=== PATIENT | female | born 1955 | race Caucasian/White ===

== ENCOUNTER → 2019-10-06 14:29 | Outpatient (BNVA) | payer MEDICARE, MEDICAID, SELFPAY | PROVIDERS: Visit Provider Nurse Practitioner Family | DX: J06.9 Acute upper respiratory infection, unspecified (principal); J84.9 Interstitial pulmonary disease, unspecified | CPT/HCPCS: 71046; 85025 ==

== ENCOUNTER → 2019-10-10 13:52 | Outpatient (BNVA) | payer MEDICARE, MEDICAID, SELFPAY | PROVIDERS: Visit Provider Nurse Practitioner Family | DX: J84.9 Interstitial pulmonary disease, unspecified (principal); J98.11 Atelectasis; R09.89 Other specified symptoms and signs involving the circulatory and respiratory systems | CPT/HCPCS: 71046 ==

== ENCOUNTER 2019-10-10 17:14 | Emergency (ER) | payer MEDICARE, MEDICAID, SELFPAY ==
--- NOTE | 2019-10-10 17:33 | ED_ITS ---
Entered by Anita Rebolledo, acting as scribe for Documented by User: Ruth Vo Loraine 10/11/19 00:16 HPI - General Adult General: Chief complaint: Shortness of Breath/Dyspnea Stated complaint: high wb count Time Seen by Provider: 10/10/19 17:46 PFSH ED PFSH: Medical History Acquired renal cyst Active asthma Advanced COPD Atelectasis Bilateral primary osteoarthritis of knee CAD (coronary artery disease), [place] coronary artery Collapsed vertebra, not elsewhere classified, thoracic region, sequela of fracture DDD (degenerative disc disease) Essential (primary) hypertension Facet syndrome, lumbar Idiopathic scoliosis and kyphoscoliosis Iron deficiency Lumbar stenosis Lumbosacral spondylosis without myelopathy Meralgia paresthetica, unspecified lower limb Mixed hyperlipidemia CASSIE (obstructive sleep apnea) Pain in thoracic spine Panlobular emphysema Sensorineural hearing loss, bilateral SOB (shortness of breath) Spondylolisthesis Tinnitus, bilateral Tobacco abuse Vitamin D deficiency, unspecified Surgical History History of hysterectomy Hx of section Social History Smoking and tobacco status: former smoker Alcohol intake: never Lives independently: Yes Marital status: / History of recent travel: No Current gender identity: Female Course Vital Signs: Vital signs: Vital Signs Temperature 98.1 F 10/10/19 17:34 Pulse Rate 87 10/10/19 19:28 Respiratory Rate 18 10/10/19 19:28 Blood Pressure 152/72 10/10/19 19:13 Pulse Oximetry 96 10/10/19 19:28 MDM - General Adult MDM Narrative: Medical decision making narrative: Michelle is a very nice 64-year-old female who comes in with pneumonia. She states overall she is feeling a little better since she was diagnosed on Thursday but is only taking doxycycline but is currently on prednisone. The patient's nurse practitioner was concerned as her white blood cell count was going up but I have informed her this is an expected reaction with being on steroids. She again denies any chest pain, she only gets short of breath with exertion but normal or so that she normally does because of her COPD. The patient has a curb 65 score of 1 that makes her low risk and a pneumonia severity index score classifying her as class II. I have offered to put her in the hospital despite this but she declines. She wants to take Levaquin at home which she has had success with before and she agrees to finish her doxycycline, steroids and will continue her home breathing treatments. The patient here does not appear septic. She has no chest pain and her troponins and EKG have been normal. She understands she can be admitted but at this time she wants to continue to try to recuperate at home. She is only he re at this time because she was instructed by her nurse practitioner because her white blood cell count was going up. Again I believe this is likely a reaction to her steroids. Ultimately though the patient was offered admission but she wants to continue to try to do this at home but does agree to return if she worsens. Lab Data: Attestation: I reviewed the patient's lab results. Labs: Lab Results 10/10/19 10/10/19 10/10/19 Range/Units 17:44 17:44 17:44 WBC 17.1 H (4.0-10.0) 10^3/ uL RBC 4.10 (4.1-5.3) 10^6/u L Hgb 11.1 L (11.5-15.3) g/dL Hct 36.3 L (37.0-47.0) % MCV 88.5 (81-99) fL MCH 27.1 L (28.0-34.0) pg MCHC 30.6 (30.0-36.0) g/dL RDW 14.0 (12.1-15.1) % Plt Count 317 (130-400) 10^3/c mm MPV 8.8 (7.4-10.4) fL Neut % (Auto) 82.9 % Lymph % (Auto) 9.1 % [place] % (Auto) 4.3 % Eos % (Auto) 0.4 % Baso % (Auto) 0.5 % Neut # (Auto) 14.2 H (1.8-7.7) 10^3/u L Lymph # (Auto) 1.6 (0.8-4.8) 10^3/u L [place] # (Auto) 0.7 (0.2-0.9) 10^3/u L Eos # (Auto) 0.1 (0.0-0.8) 10^3/u L Baso # (Auto) 0.1 (0.0-0.1) 10^3/u L Nucleated RBC % (a uto) 0 % Nucleated RBCs # 0.0 /100WBC Specimen Type Sample Site ABG pH (7.35-7.45) ABG pCO2 (35-45) mmHg ABG pO2 (80.0-100.0) mmH g ABG HCO3 (22-26) mmol/L ABG O2 Saturation ABG Base Excess (-2.0-2.0) mmol/ L Zachary Test A-a O2 Gradient (5-10) mmHg Hematocrit (37-47) % Hgb O2 Saturation (95-100) % Carboxyhemoglobin (0.4-20.1) %THgb Methemoglobin (0.4-1.5) % Total Hemoglobin (12-16) g/dL Ionized Calcium (1.1-1.4) mmol/L Mounter Hand ID Sodium 138 (136-145) mmol/L Potassium 3.8 (3.5-5.1) mmol/L Chloride 91 L (98-107) mmol/L Carbon Dioxide 36 H (22-29) mmol/L Anion Gap 14.8 (5-19) BUN 15 (8-23) mg/dL Creatinine 0.8 (0.5-0.9) mg/dL GFR Calculation 72.0 L (90-130) mL/min Glucose 143 H (65-115) mg/dL Calcium 10.0 (8.5-10.5) mg/dL Total Bilirubin 0.5 (0.15-1.2) mg/dL AST 11 (0-32) U/L ALT 9 (0-33) U/L Alkaline Phosphata se 89 (35-105) IU/L Troponin T Baselin e 8 (0-10) ng/mL Troponin T 120 Min [place] (0-10) ng/mL Delta Troponin T (0-10) ABS# NT-Pro-B Natriuret Pep (0-125) pg/mL Total Protein 8.2 (6.6-8.7) g/dL Albumin 4.1 (3.5-5.2) g/dL Globulin 4.1 (1.3-4.6) g/dL Lipase 15 (13-60) U/L Influenza Type A A g (Negative) POC Influenza B Ag (Negative) 10/10/19 10/10/19 10/10/19 Range/Units 17:44 18:56 19:24 WBC (4.0-10.0) 10^3/ uL RBC (4.1-5.3) 10^6/u L Hgb (11.5-15.3) g/dL Hct (37.0-47.0) % MCV (81-99) fL MCH (28.0-34.0) pg MCHC (30.0-36.0) g/dL RDW (12.1-15.1) % Plt Count (130-400) 10^3/c mm MPV (7.4-10.4) fL Neut % (Auto) % Lymph % (Auto) % [place] % (Auto) % Eos % (Auto) % Baso % (Auto) % Neut # (Auto) (1.8-7.7) 10^3/u L Lymph # (Auto) (0.8-4.8) 10^3/u L [place] # (Auto) (0.2-0.9) 10^3/u L Eos # (Auto) (0.0-0.8) 10^3/u L Baso # (Auto) (0.0-0.1) 10^3/u L Nucleated RBC % (a uto) % Nucleated RBCs # /100WBC Specimen Type Sample Site ABG pH (7.35-7.45) ABG pCO2 (35-45) mmHg ABG pO2 (80.0-100.0) mmH g ABG HCO3 (22-26) mmol/L ABG O2 Saturation ABG Base Excess (-2.0-2.0) mmol/ L Zachary Test A-a O2 Gradient (5-10) mmHg Hematocrit (37-47) % Hgb O2 Saturation (95-100) % Carboxyhemoglobin (0.4-20.1) %THgb Methemoglobin (0.4-1.5) % Total Hemoglobin (12-16) g/dL Ionized Calcium (1.1-1.4) mmol/L Mounter Hand ID Sodium (136-145) mmol/L Potassium (3.5-5.1) mmol/L Chloride (98-107) mmol/L Carbon Dioxide (22-29) mmol/L Anion Gap (5-19) BUN (8-23) mg/dL Creatinine (0.5-0.9) mg/dL GFR Calculation (90-130) mL/min Glucose (65-115) mg/dL Calcium (8.5-10.5) mg/dL Total Bilirubin (0.15-1.2) mg/dL AST (0-32) U/L ALT (0-33) U/L Alkaline Phosphata se (35-105) IU/L Troponin T Baselin e (0-10) ng/mL Troponin T 120 Min [place] 8.93 (0-10) ng/mL Delta Troponin T 0.93 (0-10) ABS# NT-Pro-B Natriuret Pep 178 H (0-125) pg/mL Total Protein (6.6-8.7) g/dL Albumin (3.5-5.2) g/dL Globulin (1.3-4.6) g/dL Lipase (13-60) U/L Influenza Type A A g Negative (Negative) POC Influenza B Ag Negative (Negative) 10/10/19 Range/Units 19:25 WBC (4.0-10.0) 10^3/ uL RBC (4.1-5.3) 10^6/u L Hgb (11.5-15.3) g/dL Hct (37.0-47.0) % MCV (81-99) fL MCH (28.0-34.0) pg MCHC (30.0-36.0) g/dL RDW (12.1-15.1) % Plt Count (130-400) 10^3/c mm MPV (7.4-10.4) fL Neut % (Auto) % Lymph % (Auto) % [place] % (Auto) % Eos % (Auto) % Baso % (Auto) % Neut # (Auto) (1.8-7.7) 10^3/u L Lymph # (Auto) (0.8-4.8) 10^3/u L [place] # (Auto) (0.2-0.9) 10^3/u L Eos # (Auto) (0.0-0.8) 10^3/u L Baso # (Auto) (0.0-0.1) 10^3/u L Nucleated RBC % (a uto) % Nucleated RBCs # /100WBC Specimen Type Arterial Sample Site Radial, left ABG pH 7.48 H (7.35-7.45) ABG pCO2 51.8 H (35-45) mmHg ABG pO2 63.2 L (80.0-100.0) mmH g ABG HCO3 38.3 H (22-26) mmol/L ABG O2 Saturation 94.7 ABG Base Excess 12.9 H (-2.0-2.0) mmol/ L Zachary Test Pos A-a O2 Gradient 21.7 H (5-10) mmHg Hematocrit 34.3 L (37-47) % Hgb O2 Saturation 93.2 L (95-100) % Carboxyhemoglobin 1.1 (0.4-20.1) %THgb Methemoglobin 0.5 (0.4-1.5) % Total Hemoglobin 11.2 L (12-16) g/dL Ionized Calcium 1.2 (1.1-1.4) mmol/L Mounter Hand ID ellpe Sodium 139.0 (136-145) mmol/L Potassium 3.6 (3.5-5.1) mmol/L Chloride (98-107) mmol/L Carbon Dioxide (22-29) mmol/L Anion Gap (5-19) BUN (8-23) mg/dL Creatinine (0.5-0.9) mg/dL GFR Calculation (90-130) mL/min Glucose 107.0 (65-115) mg/dL Calcium (8.5-10.5) mg/dL Total Bilirubin (0.15-1.2) mg/dL AST (0-32) U/L ALT (0-33) U/L Alkaline Phosphata se (35-105) IU/L Troponin T Baselin e (0-10) ng/mL Troponin T 120 Min [place] (0-10) ng/mL Delta Troponin T (0-10) ABS# NT-Pro-B Natriuret Pep (0-125) pg/mL Total Protein (6.6-8.7) g/dL Albumin (3.5-5.2) g/dL Globulin (1.3-4.6) g/dL Lipase (13-60) U/L Influenza Type A A g (Negative) POC Influenza B Ag (Negative) Imaging Data^: CXR: My impression: Bilateral lower lobe infiltrates. EKG Data^: EKG 1: Attestation: I personally reviewed and interpreted this EKG as follows: EKG interpretation date: 10/10/19 EKG interpretation time: 18:04 Interpretation: Normal sinus rhythm at 86 beats a minute, left axis deviation, no acute ST-T wave changes, LVH Computer generated interpretation: Chest X-Ray 10/10/19 17:56 IMPRESSION: Low-grade subsegmental atelectasis with infiltrate in the basilar portions of both lower lungs slightly increased since previous exam. Discharge Plan Discharge Patient Disposition: Home, Self-Care Clinical Impression: Community acquired pneumonia Qualifiers: Laterality: unspecified laterality Qualified Code(s): J18.9 - Pneumonia, unspecified organism Condition: Stable Prescriptions: New Levaquin 750 mg tablet 750 mg PO DAILY 7 Days RF: 0 No Action metoprolol succinate [Toprol XL] 100 mg tablet extended release 24 hr 100 mg PO ONCE RF: 0 furosemide [Lasix] 20 mg tablet 10 mg PO BID RF: 0 montelukast [Singulair] 10 mg tablet 10 mg PO ONCE RF: 0 albuterol sulfate [Ventolin HFA] 90 mcg/actuation HFA aerosol inhaler 2 puff INHALATION Q4H PRNRF: 0 cholecalciferol (vitamin D3) 50,000 unit capsule 50,000 unit PO .Weekly RF: 0 aspirin [Adult Aspirin Regimen] 81 mg tablet,delayed release (DR/EC) 81 mg PO ONCE RF: 0 albuterol sulfate 2.5 mg /3 mL (0.083 %) solution for nebulization 2.5 mg INHALATION Q6H PRNRF: 0 ferrous sulfate 325 mg (65 mg iron) tablet 325 mg PO BID RF: 0 Daliresp 500 mcg tablet 500 mcg PO ONCE RF: 0 alendronate [Fosamax] 70 mg tablet 70 mg PO .Weekly RF: 0 duloxetine [Cymbalta] 30 mg capsule,delayed release(DR/EC) 30 mg PO BID RF: 0 atorvastatin [Lipitor] 10 mg tablet 10 mg PO ONCE RF: 0 nitroglycerin 0.4 mg tablet, sublingual 0.4 mg SUBLINGUAL Q5M PRNRF: 0 isosorbide dinitrate 30 mg tablet 30 mg PO ONCE RF: 0 meloxicam [Mobic] 7.5 mg tablet 7.5 mg PO ONCE RF: 0 losartan-hydrochlorothiazide [Hyzaar] 100-25 mg tablet 1 tab PO ONCE RF: 0 tizanidine 2 mg tablet 2 mg PO BID PRNRF: 0 calcium carbonate [Calcium 500] 500 mg calcium (1,250 mg) tablet 500 mg PO ONCE RF: 0 potassium chloride 20 mEq packet 20 meq PO ONCE RF: 0 prednisone 10 mg tablets,dose pack See Rx Instructions PO PER PKG DIR Qty: 21 RF: 0 doxycycline monohydrate 100 mg capsule 100 mg PO BID Qty: 20 RF: 0 Trelegy Ellipta 100-62.5-25 mcg blister with device 1 inh INHALATION Q24H 60 Days Qty: 60 RF: 1 magnesium oxide [MagOx] 400 mg (241.3 mg magnesium) tablet 400 mg PO TID Qty: 90 RF: 1 Discharge Orders: Discharge Order (Routine); Ordered 10/10/19 Ordered By: Ruth Baron Referrals: Tung Shields DO [Physician] - 1-3 days Discharge Diet: Usual diet Discharge Activity: Increase activity as tolerated Patient Instructions: Community-acquired Pneumonia (ED) Activity Restrictions/Additional Instructions: Please return to the ER immediately for any of the signs or symptoms listed on your discharge instruction sheets, worsening/changing of your symptoms, you are not getting better as quickly as expected, or for ANY other cause or concerns. You have been offered admission for treatment of your moment but have declined. If your symptoms worsen at all or you develop any new symptoms please return to the ER immediately for recheck. Discharge Date/Time: 10/10/19 21:02 Coding Level of Care Code ED Spiral Weaver for Chg Fwd Exam Comprehensive Documented by User: Yang Nichols DO 10/11/19 12:46 HPI - General Adult General: Chief complaint: Shortness of Breath/Dyspnea Stated complaint: high wb count Time Seen by Provider: 10/10/19 17:46 History of Present Illness: HPI narrative: 64 yo female presents with shortness of breath. Pt states that she was diagnosed Thursday with Pneumonia. Pt states that she has been taking antibiotics, her wbc is high. Pt states that she is taking steroids as well. pt states that her PCP told her to come to the ER because her wbc were elevated. Pt states that she is on o2 at all times. Pt denies being short of breath right now. Pt states that she has been coughing. Pt states that she feels fine now, but at night her symptoms worsen. MD complaint: shortness of breath Associated symptoms: Deny chest pain, dyspnea, malaise, nausea, rash or vomiting Review of Systems Const: Denies: fever, chills, body aches, change in appetite, fatigue or malaise ENMT: Denies: throat pain, ear pain, nasal discharge or nasal congestion Card: Denies: chest pain, edema, shortness of breath on exertion or shortness of breath when lying down Resp: Denies: shortness of breath, productive cough or non-productive cough GI: Denies: abdominal pain, nausea, vomiting, vomiting blood, coffee grounds in vomit, diarrhea, constipation, bloating, blood in stool or black tarry stool : Denies: flank pain, difficulty urinating, painful urination, urinary frequency or urinary urgency Skin/Breast: Denies: rash or itching PFSH ED PFSH: Medical History Acquired renal cyst Active asthma Advanced COPD Atelectasis Bilateral primary osteoarthritis of knee CAD (coronary artery disease), [place] coronary artery Collapsed vertebra, not elsewhere classified, thoracic region, sequela of fracture DDD (degenerative disc disease) Essential (primary) hypertension Facet syndrome, lumbar Idiopathic scoliosis and kyphoscoliosis Iron deficiency Lumbar stenosis Lumbosacral spondylosis without myelopathy Meralgia paresthetica, unspecified lower limb Mixed hyperlipidemia CASSIE (obstructive sleep apnea) Pain in thoracic spine Panlobular emphysema Sensorineural hearing loss, bilateral SOB (shortness of breath) Spondylolisthesis Tinnitus, bilateral Tobacco abuse Vitamin D deficiency, unspecified Surgical History History of hysterectomy Hx of section Social History Smoking and tobacco status: former smoker Alcohol intake: never Lives independently: Yes Marital status: / History of recent travel: No Current gender identity: Female Physical Exam Const: COMMON NORMALS: no apparent distress GENERAL APPEARANCE: cooperative and comfortable ORIENTATION/CONSCIOUSNESS: Yes awake, Yes oriented to person, Yes oriented to place and Yes oriented to time HENMT: COMMON NORMALS: normocephalic, head/scalp atraumatic, hearing grossly normal bilaterally, external ears normal, EAC's normal, TM's normal bilaterally, nasal mucous membranes and turbinates normal, moist oral mucous membranes and oropharynx normal HEAD & SCALP: normocephalic and atraumatic NOSE: nasal mucous membranes and turbinates normal EXTERNAL EAR: Yes external ears normal EXTERNAL AUDITORY CANAL: EAC's normal TYMPANIC MEMBRANE: TM's normal bilaterally Eye: COMMON NORMALS: PERRL, EOMs intact bilaterally, conjunctivae normal and no scleral icterus CONJUNCTIVA: Yes conjunctivae normal PUPIL: Yes PERRL Neck/C-Spine: COMMON NORMALS: full ROM, no lymphadenopathy, supple and no JVD Lymph: LYMPHATIC: no lymphadenopathy noted and no lymphedema noted Cardio: COMMON NORMALS: no JVD, regular rate, regular rhythm and no murmurs RATE: regular rate RHYTHM: regular rhythm GI: COMMON NORMALS: soft to palpation and no hepatosplenomegaly AUSCULTATION: Yes normoactive bowel sounds PALPATION: Yes soft, No tender, No guarding and Yes no hepatosplenomegaly Extremity: COMMON NORMALS: normal to inspection, normal capillary refill, no clubbing, cyanosis or edema, no calf tenderness and no pedal edema Neuro: SENSORIUM/ORIENTATION: Yes oriented to person, Yes oriented to place and Yes oriented to time Skin: COMMON NORMALS: no rashes or lesions noted GENERAL SKIN EXAM: no rashes or lesions noted Course ED course: I initially ordered labs to help expedite patient's care in the emergency room but I did not see her. She had come to the exam room shortly before change of shift labs were ordered, shortly after that Dr. Heart seen her see his notes. Vital Signs: Vital signs: Vital Signs Temperature 98.1 F 10/10/19 17:34 Pulse Rate 87 10/10/19 19:28 Respiratory Rate 18 10/10/19 19:28 Blood Pressure 152/72 10/10/19 19:13 Pulse Oximetry 96 10/10/19 19:28 MDM - General Adult Lab Data: Labs: Lab Results 10/10/19 10/10/19 10/10/19 Range/Units 17:44 17:44 17:44 WBC 17.1 H (4.0-10.0) 10^3/ uL RBC 4.10 (4.1-5.3) 10^6/u L Hgb 11.1 L (11.5-15.3) g/dL Hct 36.3 L (37.0-47.0) % MCV 88.5 (81-99) fL MCH 27.1 L (28.0-34.0) pg MCHC 30.6 (30.0-36.0) g/dL RDW 14.0 (12.1-15.1) % Plt Count 317 (130-400) 10^3/c mm MPV 8.8 (7.4-10.4) fL Neut % (Auto) 82.9 % Lymph % (Auto) 9.1 % [place] % (Auto) 4.3 % Eos % (Auto) 0.4 % Baso % (Auto) 0.5 % Neut # (Auto) 14.2 H (1.8-7.7) 10^3/u L Lymph # (Auto) 1.6 (0.8-4.8) 10^3/u L [place] # (Auto) 0.7 (0.2-0.9) 10^3/u L Eos # (Auto) 0.1 (0.0-0.8) 10^3/u L Baso # (Auto) 0.1 (0.0-0.1) 10^3/u L Nucleated RBC % (a uto) 0 % Nucleated RBCs # 0.0 /100WBC Specimen Type Sample Site ABG pH (7.35-7.45) ABG pCO2 (35-45) mmHg ABG pO2 (80.0-100.0) mmH g ABG HCO3 (22-26) mmol/L ABG O2 Saturation ABG Base Excess (-2.0-2.0) mmol/ L Zachary Test A-a O2 Gradient (5-10) mmHg Hematocrit (37-47) % Hgb O2 Saturation (95-100) % Carboxyhemoglobin (0.4-20.1) %THgb Methemoglobin (0.4-1.5) % Total Hemoglobin (12-16) g/dL Ionized Calcium (1.1-1.4) mmol/L Mounter Hand ID Sodium 138 (136-145) mmol/L Potassium 3.8 (3.5-5.1) mmol/L Chloride 91 L (98-107) mmol/L Carbon Dioxide 36 H (22-29) mmol/L Anion Gap 14.8 (5-19) BUN 15 (8-23) mg/dL Creatinine 0.8 (0.5-0.9) mg/dL GFR Calculation 72.0 L (90-130) mL/min Glucose 143 H (65-115) mg/dL Calcium 10.0 (8.5-10.5) mg/dL Total Bilirubin 0.5 (0.15-1.2) mg/dL AST 11 (0-32) U/L ALT 9 (0-33) U/L Alkaline Phosphata se 89 (35-105) IU/L Troponin T Baselin e 8 (0-10) ng/mL Troponin T 120 Min [place] (0-10) ng/mL Delta Troponin T (0-10) ABS# NT-Pro-B Natriuret Pep (0-125) pg/mL Total Protein 8.2 (6.6-8.7) g/dL Albumin 4.1 (3.5-5.2) g/dL Globulin 4.1 (1.3-4.6) g/dL Lipase 15 (13-60) U/L Influenza Type A A g (Negative) POC Influenza B Ag (Negative) 10/10/19 10/10/19 10/10/19 Range/Units 17:44 18:56 19:24 WBC (4.0-10.0) 10^3/ uL RBC (4.1-5.3) 10^6/u L Hgb (11.5-15.3) g/dL Hct (37.0-47.0) % MCV (81-99) fL MCH (28.0-34.0) pg MCHC (30.0-36.0) g/dL RDW (12.1-15.1) % Plt Count (130-400) 10^3/c mm MPV (7.4-10.4) fL Neut % (Auto) % Lymph % (Auto) % [place] % (Auto) % Eos % (Auto) % Baso % (Auto) % Neut # (Auto) (1.8-7.7) 10^3/u L Lymph # (Auto) (0.8-4.8) 10^3/u L [place] # (Auto) (0.2-0.9) 10^3/u L Eos # (Auto) (0.0-0.8) 10^3/u L Baso # (Auto) (0.0-0.1) 10^3/u L Nucleated RBC % (a uto) % Nucleated RBCs # /100WBC Specimen Type Sample Site ABG pH (7.35-7.45) ABG pCO2 (35-45) mmHg ABG pO2 (80.0-100.0) mmH g ABG HCO3 (22-26) mmol/L ABG O2 Saturation ABG Base Excess (-2.0-2.0) mmol/ L Zachary Test A-a O2 Gradient (5-10) mmHg Hematocrit (37-47) % Hgb O2 Saturation (95-100) % Carboxyhemoglobin (0.4-20.1) %THgb Methemoglobin (0.4-1.5) % Total Hemoglobin (12-16) g/dL Ionized Calcium (1.1-1.4) mmol/L Mounter Hand ID Sodium (136-145) mmol/L Potassium (3.5-5.1) mmol/L Chloride (98-107) mmol/L Carbon Dioxide (22-29) mmol/L Anion Gap (5-19) BUN (8-23) mg/dL Creatinine (0.5-0.9) mg/dL GFR Calculation (90-130) mL/min Glucose (65-115) mg/dL Calcium (8.5-10.5) mg/dL Total Bilirubin (0.15-1.2) mg/dL AST (0-32) U/L ALT (0-33) U/L Alkaline Phosphata se (35-105) IU/L Troponin T Baselin e (0-10) ng/mL Troponin T 120 Min [place] 8.93 (0-10) ng/mL Delta Troponin T 0.93 (0-10) ABS# NT-Pro-B Natriuret Pep 178 H (0-125) pg/mL Total Protein (6.6-8.7) g/dL Albumin (3.5-5.2) g/dL Globulin (1.3-4.6) g/dL Lipase (13-60) U/L Influenza Type A A g Negative (Negative) POC Influenza B Ag Negative (Negative) 10/10/19 Range/Units 19:25 WBC (4.0-10.0) 10^3/ uL RBC (4.1-5.3) 10^6/u L Hgb (11.5-15.3) g/dL Hct (37.0-47.0) % MCV (81-99) fL MCH (28.0-34.0) pg MCHC (30.0-36.0) g/dL RDW (12.1-15.1) % Plt Count (130-400) 10^3/c mm MPV (7.4-10.4) fL Neut % (Auto) % Lymph % (Auto) % [place] % (Auto) % Eos % (Auto) % Baso % (Auto) % Neut # (Auto) (1.8-7.7) 10^3/u L Lymph # (Auto) (0.8-4.8) 10^3/u L [place] # (Auto) (0.2-0.9) 10^3/u L Eos # (Auto) (0.0-0.8) 10^3/u L Baso # (Auto) (0.0-0.1) 10^3/u L Nucleated RBC % (a uto) % Nucleated RBCs # /100WBC Specimen Type Arterial Sample Site Radial, left ABG pH 7.48 H (7.35-7.45) ABG pCO2 51.8 H (35-45) mmHg ABG pO2 63.2 L (80.0-100.0) mmH g ABG HCO3 38.3 H (22-26) mmol/L ABG O2 Saturation 94.7 ABG Base Excess 12.9 H (-2.0-2.0) mmol/ L Zachary Test Pos A-a O2 Gradient 21.7 H (5-10) mmHg Hematocrit 34.3 L (37-47) % Hgb O2 Saturation 93.2 L (95-100) % Carboxyhemoglobin 1.1 (0.4-20.1) %THgb Methemoglobin 0.5 (0.4-1.5) % Total Hemoglobin 11.2 L (12-16) g/dL Ionized Calcium 1.2 (1.1-1.4) mmol/L Mounter Hand ID ellpe Sodium 139.0 (136-145) mmol/L Potassium 3.6 (3.5-5.1) mmol/L Chloride (98-107) mmol/L Carbon Dioxide (22-29) mmol/L Anion Gap (5-19) BUN (8-23) mg/dL Creatinine (0.5-0.9) mg/dL GFR Calculation (90-130) mL/min Glucose 107.0 (65-115) mg/dL Calcium (8.5-10.5) mg/dL Total Bilirubin (0.15-1.2) mg/dL AST (0-32) U/L ALT (0-33) U/L Alkaline Phosphata se (35-105) IU/L Troponin T Baselin e (0-10) ng/mL Troponin T 120 Min [place] (0-10) ng/mL Delta Troponin T (0-10) ABS# NT-Pro-B Natriuret Pep (0-125) pg/mL Total Protein (6.6-8.7) g/dL Albumin (3.5-5.2) g/dL Globulin (1.3-4.6) g/dL Lipase (13-60) U/L Influenza Type A A g (Negative) POC Influenza B Ag (Negative) EKG Data^: EKG 1: Computer generated interpretation: Chest X-Ray 10/10/19 17:56 IMPRESSION: Low-grade subsegmental atelectasis with infiltrate in the basilar portions of both lower lungs slightly increased since previous exam. Discharge Plan Discharge Patient Disposition: Home, Self-Care Clinical Impression: Community acquired pneumonia Qualifiers: Laterality: unspecified laterality Qualified Code(s): J18.9 - Pneumonia, unspecified organism Condition: Stable Prescriptions: New Levaquin 750 mg tablet 750 mg PO DAILY 7 Days RF: 0 No Action metoprolol succinate [Toprol XL] 100 mg tablet extended release 24 hr 100 mg PO ONCE RF: 0 furosemide [Lasix] 20 mg tablet 10 mg PO BID RF: 0 montelukast [Singulair] 10 mg tablet 10 mg PO ONCE RF: 0 albuterol sulfate [Ventolin HFA] 90 mcg/actuation HFA aerosol inhaler 2 puff INHALATION Q4H PRNRF: 0 cholecalciferol (vitamin D3) 50,000 unit capsule 50,000 unit PO .Weekly RF: 0 aspirin [Adult Aspirin Regimen] 81 mg tablet,delayed release (DR/EC) 81 mg PO ONCE RF: 0 albuterol sulfate 2.5 mg /3 mL (0.083 %) solution for nebulization 2.5 mg INHALATION Q6H PRNRF: 0 ferrous sulfate 325 mg (65 mg iron) tablet 325 mg PO BID RF: 0 Daliresp 500 mcg tablet 500 mcg PO ONCE RF: 0 alendronate [Fosamax] 70 mg tablet 70 mg PO .Weekly RF: 0 duloxetine [Cymbalta] 30 mg capsule,delayed release(DR/EC) 30 mg PO BID RF: 0 atorvastatin [Lipitor] 10 mg tablet 10 mg PO ONCE RF: 0 nitroglycerin 0.4 mg tablet, sublingual 0.4 mg SUBLINGUAL Q5M PRNRF: 0 isosorbide dinitrate 30 mg tablet 30 mg PO ONCE RF: 0 meloxicam [Mobic] 7.5 mg tablet 7.5 mg PO ONCE RF: 0 losartan-hydrochlorothiazide [Hyzaar] 100-25 mg tablet 1 tab PO ONCE RF: 0 tizanidine 2 mg tablet 2 mg PO BID PRNRF: 0 calcium carbonate [Calcium 500] 500 mg calcium (1,250 mg) tablet 500 mg PO ONCE RF: 0 potassium chloride 20 mEq packet 20 meq PO ONCE RF: 0 prednisone 10 mg tablets,dose pack See Rx Instructions PO PER PKG DIR Qty: 21 RF: 0 doxycycline monohydrate 100 mg capsule 100 mg PO BID Qty: 20 RF: 0 Trelegy Ellipta 100-62.5-25 mcg blister with device 1 inh INHALATION Q24H 60 Days Qty: 60 RF: 1 magnesium oxide [MagOx] 400 mg (241.3 mg magnesium) tablet 400 mg PO TID Qty: 90 RF: 1 Discharge Orders: Discharge Order (Routine); Ordered 10/10/19 Ordered By: Ruth Baron Referrals: Tung Shields DO [Physician] - 1-3 days Discharge Diet: Usual diet Discharge Activity: Increase activity as tolerated Patient Instructions: Community-acquired Pneumonia (ED) Activity Restrictions/Additional Instructions: Please return to the ER immediately for any of the signs or symptoms listed on your discharge instruction sheets, worsening/changing of your symptoms, you are not getting better as quickly as expected, or for ANY other cause or concerns. You have been offered admission for treatment of your moment but have declined. If your symptoms worsen at all or you develop any new symptoms please return to the ER immediately for recheck. Discharge Date/Time: 10/10/19 21:02 Coding Level of Care Code ED Spiral Weaver for Chg Fwd Exam Comprehensive The documentation recorded by the Amaury yost Kialy, accurately reflects the service I personally performed and the decisions made by Magdalena starkey Curtis L, DO Oct 10, 2019 17:14
[2019-10-10 17:34] VITALS: PULSE 93; RESP 18; TEMP 36.7; O2SAT 94; BMI 56.2
--- NOTE | 2019-10-10 17:55 | ECG_ITS ---
Measurements Intervals [place] Rate: 86 P: 59 NJ: 140 QRS: 11 QRSD: 87 T: 53 QT: 367 QTc: 439 SINUS RHYTHM POSSIBLE RIGHT VENTRICULAR CONDUCTION DELAY [RSR (QR) IN V1/V2] MODERATE VOLTAGE CRITERIA FOR LVH, CONSIDER NORMAL VARIANT Compared to ECG 09/28/2015 13:10:58 No significant changes Electronically Signed On 10-11-2019 17:09:07 [employer] by Terri Blanton M.D. [email or web address]
--- NOTE | 2019-10-10 17:56 | XR_ITS ---
WS: [id number] XR chest 1V portable [id number] REASON FOR EXAM: dyspnea/cough FINDINGS: Comparison to previous exam of October 10, 2019 there is mild congestion now seen in the l ower lungs with alveolar infiltrates and subsegmental atelectasis. Increased since the earlier exam. The heart is not enlarged. XR/XR chest 1V portable [id number] IMPRESSION: Low-grade subsegmental atelectasis with infiltrate in the basilar portions of b oth lower lungs slightly increased since previous exam.
[2019-10-10 18:10] LABS: Basophils # 0.1 10^3/uL (0.0-0.1); Basophils % 0.5 %; Eosinophils # 0.1 10^3/uL (0.0-0.8); Eosinophils % 0.4 %; Hematocrit 36.3 % (37.0-47.0); Hemoglobin 11.1 g/dL (11.5-15.3); Lymphocytes # 1.6 10^3/uL (0.8-4.8); Lymphocytes % 9.1 %; Mean Corpuscular HGB Conc 30.6 g/dL (30.0-36.0); Mean Corpuscular Hemoglobin 27.1 pg (28.0-34.0); Mean Corpuscular Volume 88.5 fL (81-99); Mean Platelet Volume 8.8 fL (7.4-10.4); Monocytes # 0.7 10^3/uL (0.2-0.9); Monocytes % 4.3 %; Neutrophils # 14.2 10^3/uL (1.8-7.7); Neutrophils % 82.9 %; Nucleated Red Blood Cells % 0 %; Platelet Count 317 10^3/cmm (130-400); White Blood Count 17.1 10^3/uL (4.0-10.0)
--- NOTE | 2019-10-10 18:15 | ECG_ITS ---
Measurements Intervals [place] Rate: 86 P: 59 NV: 140 QRS: 11 QRSD: 87 T: 53 QT: 367 QTc: 439 SINUS RHYTHM POSSIBLE RIGHT VENTRICULAR CONDUCTION DELAY [RSR (QR) IN V1/V2] MODERATE VOLTAGE CRITERIA FOR LVH, CONSIDER NORMAL VARIANT Compared to ECG 09/28/2015 13:10:58 No significant changes Electronically Signed On 10-11-2019 17:09:22 [facility] [place] SUPPORT by Terri Blanton M.D. [id number]
[2019-10-10 18:18] LABS: Alanine Aminotransferase 9 U/L (0-33); Albumin Level 4.1 g/dL (3.5-5.2); Alkaline Phosphatase 89 IU/L (35-105); Anion Gap 14.8 (5-19); Aspartate Amino Transferase 11 U/L (0-32); Blood Urea Nitrogen 15 mg/dL (8-23); Carbon Dioxide 36 mmol/L (22-29); Chloride 91 mmol/L (98-107); Globulin 4.1 g/dL (1.3-4.6); Glucose 143 mg/dL (65-115); Lipase 15 U/L (13-60); Potassium 3.8 mmol/L (3.5-5.1); Sodium 138 mmol/L (136-145); Total Bilirubin 0.5 mg/dL (0.15-1.2); Total Protein 8.2 g/dL (6.6-8.7)
[2019-10-10 18:37] LABS: Troponin(5th) Baseline 8 ng/mL (0-10)
[2019-10-10 18:45] LABS: NT Pro B Type Natriuretic Pept 178 pg/mL (0-125)
[2019-10-10] MEDS: cefTRIAXone 2,000 MG in sodium chloride 0.9% (plus) 50 ML 100 MG IV (19:02)
--- NOTE | 2019-10-10 19:09 | PC.NURSE ---
Patient resting with family at bedside. Denies any needs at this time. No distress is noted.
[2019-10-10 19:13] VITALS: BP 152/72; PULSE 74; RESP 20; O2SAT 96
[2019-10-10] MEDS: ipratropium-albuterol 3 mL Neb INHALATION (19:24)
[2019-10-10 19:25] VITALS: PULSE 79; RESP 18; O2SAT 97
[2019-10-10 19:28] VITALS: PULSE 87; RESP 18; O2SAT 96
[2019-10-10 19:32] LABS: ABG PCO2 51.8 mmHg (35-45); ABG PH Result 7.48 (7.35-7.45); Alveolar-Arterial Oxygen Gradi 21.7 mmHg (5-10); Arterial Blood Gas Hematocrit 34.3 % (37-47); Base Excess ABG 12.9 mmol/L (-2.0-2.0); Blood Gas Allen Test Pos; Blood Gas Sample Site Radial, left; Blood Gas Sample Type Arterial; Carboxyhemoglobin 1.1 %THgb (0.4-20.1); HCO3 ABG 38.3 mmol/L (22-26); HGB O2 Sat 93.2 % (95-100); Ionized Calcium Level - ABG 1.2 mmol/L (1.1-1.4); Methemoglobin 0.5 % (0.4-1.5); Oxygen Saturation ABG 94.7; PO2 ABG 63.2 mmHg (80.0-100.0); Potassium Level - ABG 3.6 mmol/L (3.5-5.0); Total Hemoglobin 11.2 g/dL (12-16)
[2019-10-10 19:36] LABS: Influenza A by IFA Negative (Negative); Influenza B by IFA Negative (Negative)
[2019-10-10] MEDS: levoFLOXacin 750 mg Tablet PO (19:40)
[2019-10-10 19:46] LABS: Troponin 5 2HR 8.93 ng/mL (0-10); Troponin 5 2HR Delta 0.93 ABS# (0-10)
== END 2019-10-10 21:02 | disposition home or self-care (01) ==
PROVIDERS: Family Medicine; Emergency Provider Emergency Medicine
DX: J18.9 Pneumonia, unspecified organism (principal); J43.1 Panlobular emphysema; I25.10 Atherosclerotic heart disease of native coronary artery without angina pectoris; I10 Essential (primary) hypertension; E78.2 Mixed hyperlipidemia; Z87.891 Personal history of nicotine dependence; Z79.52 Long term (current) use of systemic steroids; Z79.2 Long term (current) use of antibiotics
CPT/HCPCS: 36415; 36600; 71045; 80051; 80053; 82810; 83690; 83880; 83986; 84484; 85007; 85025; 87804; 93005; 94640; 96365; 99283; 99284; J0696

== ENCOUNTER 2019-10-18 10:53 | Outpatient (CLI) | payer MEDICARE, MEDICAID, SELFPAY ==
--- NOTE | 2019-10-18 11:27 | MM_ITS ---
WS: [id number] BILATERAL DIGITAL DIAGNOSTIC MAMMOGRAM MAMMOGRAPHY WITH CAD CLINICAL INFORMATION: LT BREAST PAIN HISTORY: Bloody discharge left nipple left breast soreness COMPARISON: None. TECHNIQUE: Bilateral CC, MLO, and ML views. FINDINGS: Scattered fibroglandular densities bilaterally. A few scattered ovoid nodular densities bilaterally l ikely intramammary lymph nodes. Vascular calcification. No focal subareolar abnormalities left breast . Ultrasound is pending. ULTRASOUND BREAST LEFT TECHNIQUE: Ultrasound left breast focused area of concern. CLINICAL INFORMATION: LT BREAST PAIN COMPARISON: None. FINDINGS: Ultrasound subareolar left breast. Dilated ducts in the area of concern. Evidence of some intraductal debris. No definite focal intraductal solid lesions. No lesions to target for biopsy. This is probab ly benign and recommend 6 month follow-up ultrasound and left diagnostic mammography. MM/[place] [id number] IMPRESSION: BI-RADS: 3-Probably Benign FOLLOW UP: 6 Month Follow-up
== END 2019-10-18 10:54 | disposition home or self-care (01) ==
LOC: RADSHAW 10:54
PROVIDERS: PCP Nurse Practitioner Family; Visit Provider Nurse Practitioner Family
DX: N64.4 Mastodynia (principal)
CPT/HCPCS: 77066

== ENCOUNTER 2019-11-03 10:04 | Outpatient (CLI) | payer MEDICARE, MEDICAID, SELFPAY ==
--- NOTE | 2019-11-03 | US_ITS ---
NOTE: Report was unsigned for reason: Order was edited. Original Signature date and time was: 11/04/19 1013 WS: [id number] BILATERAL DIGITAL DIAGNOSTIC MAMMOGRAM MAMMOGRAPHY WITH CAD CLINICAL INFORMATION: LT BREAST PAIN HISTORY: Bloody discharge left nipple left breast soreness COMPARISON: None. TECHNIQUE: Bilateral CC, MLO, and ML views. FINDINGS: Scattered fibroglandular densities bilaterally. A few scattered ovoid nodular densities bilaterally likely intramammary lymph nodes. Vascular calcification. No focal subareolar abnormalities left breast. Ultrasound is pending. ULTRASOUND BREAST LEFT TECHNIQUE: Ultrasound left breast focused area of concern. CLINICAL INFORMATION: LT BREAST PAIN COMPARISON: None. FINDINGS: Ultrasound subareolar left breast. Dilated ducts in the area of concern. Evidence of some intraductal debris. No definite focal intraductal solid lesions. No lesions to target for biopsy. This is probably benign and recommend 6 month follow-up ultrasound and left diagnostic mammography. MM/[place] [id number] IMPRESSION: BI-RADS: 3-Probably Benign FOLLOW UP: 6 Month Follow-up [facility]
== END 2019-11-03 10:05 | disposition home or self-care (01) ==
LOC: RAD 10:09
PROVIDERS: PCP Nurse Practitioner Family; Visit Provider Nurse Practitioner Family
DX: N64.4 Mastodynia (principal)
CPT/HCPCS: 76642

== ENCOUNTER → 2019-11-09 11:58 | Outpatient (BNVA) | payer MEDICARE, MEDICAID, SELFPAY | PROVIDERS: PCP Nurse Practitioner Family; Visit Provider Nurse Practitioner Family | DX: I10 Essential (primary) hypertension (principal); E55.9 Vitamin D deficiency, unspecified; R06.02 Shortness of breath; J44.9 Chronic obstructive pulmonary disease, unspecified; E78.2 Mixed hyperlipidemia | CPT/HCPCS: 80053; 80061; 82306; 84443; 85025 ==

== ENCOUNTER → 2019-11-10 12:19 | Outpatient (BNVA) | payer MEDICARE, MEDICAID, SELFPAY | PROVIDERS: PCP Nurse Practitioner Family; Visit Provider Nurse Practitioner Family | DX: I10 Essential (primary) hypertension (principal); E55.9 Vitamin D deficiency, unspecified; R06.02 Shortness of breath; J44.9 Chronic obstructive pulmonary disease, unspecified; E78.2 Mixed hyperlipidemia; R73.9 Hyperglycemia, unspecified | CPT/HCPCS: 83036 ==

== ENCOUNTER → 2019-12-26 17:18 | Outpatient (BNVA) | payer MEDICARE, MEDICAID, SELFPAY | PROVIDERS: PCP Nurse Practitioner Family; Visit Provider Nurse Practitioner Family | DX: R10.9 Unspecified abdominal pain (principal); R10.11 Right upper quadrant pain; G47.00 Insomnia, unspecified | CPT/HCPCS: 80053; 85025 ==

== ENCOUNTER → 2020-01-05 10:24 | Outpatient (BNVA) | payer MEDICARE, MEDICAID, SELFPAY | PROVIDERS: PCP Nurse Practitioner Family; Visit Provider Nurse Practitioner Family | DX: J44.1 Chronic obstructive pulmonary disease with (acute) exacerbation (principal); R06.02 Shortness of breath; I70.0 Atherosclerosis of aorta | CPT/HCPCS: 71046; 80053; 85025 ==

== ENCOUNTER 2020-02-01 09:54 | Outpatient (CLI) | payer MEDICARE, MEDICAID, SELFPAY ==
--- NOTE | 2020-02-01 12:13 | PFTS_ITS ---
Date of Study:02/01/20 Date of Dictation: MECHANICS: Forced vital capacity (FVC) is reduced. Forced expiratory volume in one second (FEV1) is reduced. FEV1/FVC is reduced. FLOW VOLUME LOOP: Reduced flow at all lung volumes with significant scooping. LUNG VOLUMES: Reduced inspiratory capacity and expiratory reserve volume. S . DIFFUSING CAPACITY FOR CARBON MONOXIDE: Mildly reduced. INTERPRETATION: The pulmonary function tests are consistent with severe obstruction. A complaint of restriction cannot be ruled out in the absence of lung volumes. There is reduction of inspiratory capacity and expiratory reserve volume. Gas exchange (DLCO) is mildly reduced. MTDD
== END 2020-02-01 09:55 | disposition home or self-care (01) ==
LOC: RT 10:00
PROVIDERS: PCP Nurse Practitioner Family; Visit Provider Internal Medicine Critical Care Medicine
DX: J44.9 Chronic obstructive pulmonary disease, unspecified (principal)
CPT/HCPCS: 94010; 94729

== ENCOUNTER 2020-04-24 08:41 | Outpatient (CLI) | payer MEDICARE, MEDICAID, SELFPAY ==
--- NOTE | 2020-04-24 08:54 | CT_ITS ---
WS: [id number] LDCT LUNG CANCER SCREENING HISTORY: HX OF TOBACCO USE TECHNIQUE: Axial imaging performed from the apices to 1 cm below the costophrenic angles. Coronal and sagittal reformats are submitted with axial MIP series. All CT scans at [facility] use at least one of these dose optimization techniques: automated exposure control; mA and/or kV adjustment per patient size (includes targeted exams where dose is matched to clinical indication); or iterativ e reconstruction. DLP: 72.29 mGy.cm DIvol: 2.2 mGy COMPARISON: 01/18/2016 Diagnostic quality: Limited by body habitus. Lung Nodules: No discrete pulmonary nodules. No endobronchial lesions or groundglass attenuation. Lungs: Partial atelectasis medial LEFT upper lobe adjacent to the mediastinum. This atelectasis was a lso present on 01/18/2016 without significant change. There are additional areas of subsegmental linea r atelectasis at the lingula and LEFT lower lobe. Chronic emphysema. Heart: Mildly enlarged. Other findings: Hilar regions cannot be evaluated without IV contrast. Hilar regions appear mildly pr ominent but without IV contrast evaluation is limited. Similar findings were seen on the prior study and may be related to pulmonary hypertension. Enlarged LEFT adrenal gland. Similar to the prior study . T12 chronic compression fracture of 20%. CT/CT lung screening [id number] IMPRESSION: LUNG-RADS: 1-Negative FOLLOW UP: 12 Month: Continue annual screening with LDCT 1. Chronic T12 compression fracture by 20%. 2.Quality of examination is limited by body habitus. This study would not exclu de mediastinal adenopathy.
== END 2020-04-24 08:42 | disposition home or self-care (01) ==
LOC: CT 08:41
PROVIDERS: Visit Provider Internal Medicine Critical Care Medicine
DX: Z12.2 Encounter for screening for malignant neoplasm of respiratory organs (principal); Z87.891 Personal history of nicotine dependence; S22.080A Wedge compression fracture of T11-T12 vertebra, initial encounter for closed fracture; X58.XXXA Exposure to other specified factors, initial encounter
CPT/HCPCS: G0297

== ENCOUNTER → 2020-05-07 10:43 | Outpatient (BNVA) | payer MEDICARE, MEDICAID, SELFPAY | PROVIDERS: Visit Provider Nurse Practitioner Family | DX: I10 Essential (primary) hypertension (principal); E55.9 Vitamin D deficiency, unspecified | CPT/HCPCS: 80053; 80061; 82306; 83735; 84443; 85025 ==

== ENCOUNTER → 2020-09-18 18:18 | Outpatient (BNVA) | payer MEDICARE, MEDICAID, SELFPAY | PROVIDERS: Visit Provider Nurse Practitioner Family | DX: I10 Essential (primary) hypertension (principal); E78.2 Mixed hyperlipidemia; E55.9 Vitamin D deficiency, unspecified; R73.9 Hyperglycemia, unspecified | CPT/HCPCS: 80053; 80061; 82306; 83036; 84443; 85025 ==

== ENCOUNTER 2020-11-23 20:04 | Inpatient (IN) | payer MEDICARE, MEDICAID, SELFPAY ==
[2020-11-23] VITALS (9 sets, daily range): BP systolic 128–185; BP diastolic 62–96; PULSE 76–99; RESP 17–28; TEMP 36.7; O2SAT 94–99
--- NOTE | 2020-11-23 20:08 | XRR_ITS ---
PROCEDURE INFORMATION: Exam: XR Chest Exam date and time: 11/23/2020 8:14 PM Age: 65 years old Clinical indication: Other: Weakness; Additional info: Abd pain TECHNIQUE: Imaging protocol: XR of the chest Views: 1 view. Total images: 1 COMPARISON: CR XR chest 2V* [id number] 01/05/2020 10:33 AM FINDINGS: Lungs: No visible active interstitial or alveolar airspace disease. Chronic minimal discoid atelectasis lung bases. Pleural spaces: Unremarkable. No pleural effusion. No pneumothorax. Heart/Mediastinum: Cardiac structures and configuration with mild cardiomegaly. Bones/joints: Unremarkable for age. Other findings: Obesity. XR/XR chest 1V portable [id number] IMPRESSION: Nonacute.
--- NOTE | 2020-11-23 20:08 | CTR_ITS ---
PROCEDURE INFORMATION: Exam: CT Abdomen And Pelvis With Contrast Exam date and time: 11/23/2020 9:14 PM Age: 65 years old Clinical indication: Abdominal pain; Generalized; Prior surgery; Surgery type: , hyst; Additional info: Epigastric pain TECHNIQUE: Imaging protocol: Computed tomography of the abdomen and pelvis with contrast. Total images: 268 Radiation optimization: All CT scans at this facility use at least one of these dose optimization techniques: automated exposure control; mA and/or kV adjustment per patient size (includes targeted exams where dose is matched to clinical indication); or iterative reconstruction. Contrast material: OMNI 300; Contrast volume: 95 ml; Contrast route: INTRAVENOUS (IV); COMPARISON: CT Abdomen/Pelvis o [id number] 11/27/2015 2:04 PM RADIATION DOSE METRICS: Total DLP (mGy-cm): 1627.46 FINDINGS: Lungs: Limited assessment of the lung bases fails to reveal evidence for active cardiopulmonary process. Mild dependent atelectasis. Liver: Marked hepatomegaly. Diffuse fatty infiltration of the liver. No visible hepatic mass or cystic structure. Gallbladder and bile ducts: Cholelithiasis. No visible intra or extrahepatic biliary ectasia. No visible choledocholithiasis. Pancreas: Findings of grade 2/5 acute pancreatitis. No visible pseudocyst formation. Mild peripancreatic inflammatory phlegmonous response. No visible pancreatic ductal ectasia. Spleen: Normal. No splenomegaly. Adrenal glands: Left adrenal adenoma measuring 27 mm x 20 mm. No follow-up recommended. Right adrenal gland unremarkable. Kidneys and ureters: No hydronephrosis or perinephric fluid. No visible nephrolithiasis. Simple renal cortical cysts the dominant inferior pole right kidney measuring 30 mm. No follow-up recommended. Stomach and bowel: Reactive duodenitis. Mild diverticulosis coli without visible evidence for acute diverticulitis. Nonobstructive bowel pattern. Appendix: The appendix is visualized and appears noninflamed. Intraperitoneal space: No visible pneumoperitoneum or intraperitoneal ascites. Vasculature: The abdominal aorta is nonaneurysmal. Mild arteriosclerosis. Lymph nodes: Unremarkable. No enlarged lymph nodes. Urinary bladder: Unremarkable as visualized. Reproductive: Status post hysterectomy. Bones/joints: No visible active or acute osseous pathology. Old compression wedge deformity T12. Degenerative disc disease L5/S1 with vacuum disc phenomenon. Soft tissues: Marked morbid obesity. Other findings: Increased quantum mottle artifact which degrades image quality in detail assessment. CT/CT abdomen pelvis w con* [id number] IMPRESSION: 1. Acute grade 2/5 pancreatitis. 2. Reactive duodenitis. 3. Marked hepatomegaly. 4. Diffuse fatty infiltration liver. 5. Cholelithiasis. 6. Left adrenal adenoma. No follow-up recommended. 7. Other nonurgent, nonemergent, chronic, and age related findings as detailed in text above. COMMENTS: Consistent with the [employer] [employer]'s Incidental Findings Committee white paper (J Am Eliel Radiol 2018): Any incidental renal lesion less than 1 cm or classified as too small to characterize, or any incidental cystic renal lesion characterized as simple-appearing, is likely benign. No follow-up imaging is recommended for these lesions per consensus recommendations based on imaging criteria. Radiation Dose CTDIVOL = (mGy): DLP = 1627.46 (mGy-cm)
--- NOTE | 2020-11-23 20:10 | W.ED.ABDPA2 ---
HPI - Abdominal Pain General: Chief Complaint: Abdominal Pain Stated Complaint: abd pain Time Seen by Provider: 11/23/20 20:06 Source: patient Mode of arrival: ambulatory Limitations: no limitations History of Present Illness: HPI narrative: Patient comes in with mid abdominal tenderness starting this afternoon. Patient also reports some 2 episodes of vomiting and one episode of diarrhea. Patient appears chronically ill. Patient has a history of COPD which he takes oxygen for routinely. Patient also has a history of chronic back pain. MD elicited complaint: abdominal pain Onset (ago): day(s) Pain Consistency: intermittent Location: Epigastric Severity: moderate Quality: sharp Migration to: no migration Exacerbating factors: movement Relieving factors: nothing Review of Systems General: Reports: 10 or more systems reviewed and unremarkable except in HPI and below GI: Reports: abdominal pain PFSH ED PFSH: Medical History Acquired renal cyst Active asthma Advanced COPD Atelectasis Bilateral primary osteoarthritis of knee CAD (coronary artery disease), [place] coronary artery Collapsed vertebra, not elsewhere classified, thoracic region, sequela of fracture DDD (degenerative disc disease) Essential (primary) hypertension Facet syndrome, lumbar Idiopathic scoliosis and kyphoscoliosis Iron deficiency Lumbar stenosis Lumbosacral spondylosis without myelopathy Meralgia paresthetica, unspecified lower limb Mixed hyperlipidemia CASSIE (obstructive sleep apnea) Pain in thoracic spine Panlobular emphysema Sensorineural hearing loss, bilateral SOB (shortness of breath) Spondylolisthesis Tinnitus, bilateral Tobacco abuse Vitamin D deficiency, unspecified Surgical History History of hysterectomy Hx of section Family History Other CAD (coronary artery disease) Cancer Diabetes Hypertension Social History Smoking and tobacco status: former smoker Quit status (tobacco): has quit using tobacco Year quit tobacco: 2008 Former quit date comment: 1-2 PPD x 20 yrs Second hand smoke exposure: No Alcohol intake: never Lives independently: Yes Household members: family Marital status: / Current occupational status: disabled History of recent travel: No Current gender identity: Female Special sita needs: No Agree to transfusion: Yes Physical Exam Const: COMMON NORMALS: no acute distress and patient oriented x3 GENERAL APPEARANCE: cooperative HENMT: COMMON NORMALS: normocephalic and Normal external nose present HEAD & SCALP: normal to inspection and normocephalic NOSE: Normal external nose present MOUTH: Normal oral and palatal mucosa present THROAT: posterior oropharynx normal Eye: GENERAL EYE: appearance normal, both eyes and all related structures Neck/C-Spine: COMMON NORMALS: full ROM Chest: COMMONS NORMALS: normal inspection of the chest Resp: COMMON NORMALS: normal respiratory effort EFFORT & INSPECTION: Yes able to speak in complete sentences AUSCULTATION: wheezes Cardio: COMMON NORMALS: regular rate and regular rhythm RATE: regular rate RHYTHM: regular rhythm GI: COMMON NORMALS: Soft to palpation PALPATION: Yes Soft to palpation and Yes Tenderness to palpation present (GI) : COMMON NORMALS: Yes no CVA tenderness BLADDER/KIDNEY EXAM: Yes no CVA tenderness Back/Pelvis: COMMON NORMALS: no CVA tenderness and thoracic and lumbar spine normal to inspection Extremity: COMMON NORMALS: normal to inspection Neuro: COMMON NORMALS: patient oriented x3 and moves all extremities Psych: COMMON NORMALS: mental status grossly normal and cooperative Skin: COMMON NORMALS: no rashes or lesions noted GENERAL SKIN EXAM: no rashes or lesions noted Course ED course: 2114, discussed with patient's elevated lipase at 5600+, told the patient that most likely she has a pancreatitis need to evaluate further with CT scan to rule out surgical intervention. Patient reports understanding and agreed to plan. Patient has been given 2 mg of morphine with minimal pain relief. We will repeat the morphine. I also discussed this with Dr. Snider who agreed to plan. 2154, CT scan notes grade 2/5 acute pancreatitis, and some duodenitis. Patient also has some cholelithiasis but does not indicate any ductal obstruction. Also on the pancreas there does not seem to be any sign of ductal concern. I reviewed this with Dr. Snider he requested that I talk to Dr. Telles regarding the patient for admission to hospitalist services. Patient was informed and agrees to plan. 2245, discussed patient with , Who agreed to admission. Vital Signs: Vital signs: Vital Signs Temperature 98.1 F 11/23/20 20:11 Pulse Rate 76 11/23/20 22:10 Respiratory Rate 22 H 11/23/20 21:06 Blood Pressure 155/63 11/23/20 22:10 Pulse Oximetry 94 11/23/20 22:10 MDM - Abdominal Pain MDM Narrative: Medical decision making narrative: Patient comes in today with complaints of mid abdominal pain for the last 3 days with episodes of nausea vomiting and diarrhea. Patient reports movement aggravates the pain. Patient does have a history of COPD but denies any concern with that at this time. On exam respirations are even with wheezing throughout lung puri. Patient has some complaints of low back pain but no midline tenderness is noted. Palpation of the abdomen notes mid epigastric tenderness. Vital signs are normal except for some mild elevation in blood pressure. Differential diagnosis includes gastritis, pancreatitis, cholecystitis, bowel obstruction. Laboratory values notes normal bilirubin, some mild elevation in liver enzymes, elevation in white blood cells at 16.9, and lipase at 5600+. CT scan was ordered and it was noted patient had a acute pancreatitis and mild duodenitis. The remainder of the CT scan exam did note some cholelithiasis without signs of cholecystitis. Patient needs admitted to the hospital for IV fluids, monitoring for deterioration of condition, and pain control. Lab Data: Labs: Lab Results 11/23/20 11/23/20 11/23/20 Range/Units 20:28 20:28 20:28 WBC 16.9 H (4.0-10.0) 10^3/ uL RBC 4.33 (4.1-5.3) 10^6/u L Hgb 11.9 (11.5-15.3) g/dL Hct 39.0 (37.0-47.0) % MCV 90.1 (81-99) fL MCH 27.5 L (28.0-34.0) pg MCHC 30.5 (30.0-36.0) g/dL RDW 14.0 (12.1-15.1) % Plt Count 326 (130-400) 10^3/c mm MPV 8.9 (7.4-10.4) fL Neut % (Auto) 83.2 % Lymph % (Auto) 7.6 % [place] % (Auto) 5.5 % Eos % (Auto) 2.1 % Baso % (Auto) 0.5 % Neut # (Auto) 14.02 H (1.8-7.7) 10^3/u L Lymph # (Auto) 1.3 (0.8-4.8) 10^3/u L [place]ff[place] # (Auto) 0.9 (0.2-0.9) 10^3/u L Eos # (Auto) 0.4 (0.0-0.8) 10^3/u L Baso # (Auto) 0.1 (0.0-0.1) 10^3/u L Nucleated RBC % (a uto) 0 % Nucleated RBCs # 0.0 /100WBC Sodium 137 (136-145) mmol/L Potassium 3.7 (3.5-5.1) mmol/L Chloride 93 L (98-107) mmol/L Carbon Dioxide 34 H (22-29) mmol/L Anion Gap 13.7 (5-19) BUN 12 (8-23) mg/dL Creatinine 0.7 (0.5-0.9) mg/dL GFR Calculation 83.7 L (90-130) mL/min Glucose 158 H (65-115) mg/dL Calculated Osmolal ity 287 (285-295) mOsm/k g Calcium 9.4 (8.5-10.5) mg/dL Total Bilirubin 1.0 (0.15-1.2) mg/dL AST 142 H (0-32) U/L ALT 177 H (0-33) U/L Alkaline Phosphata se 173 H (35-105) IU/L Troponin T Baselin e 8 (0-10) ng/L Total Protein 7.5 (6.6-8.7) g/dL Albumin 4.0 (3.5-5.2) g/dL Globulin 3.5 (1.3-4.6) g/dL Lipase > 5226 H (13-60) U/L Discharge Plan Discharge Admit Provider: Onofre Latif Sign Out Sign Out Data: Sign Out Comment: needs admission for pancreatitis. 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
[2020-11-23] MEDS: morphine 4 mg/mL SDV 1 mL 2 MG IVP ×2 (20:31→21:43)
[2020-11-23] MEDS: sodium chloride 0.9% 500 ML 999 ML IV (20:31)
[2020-11-23] MEDS: ipratropium-albuterol 3 mL Neb INHALATION (20:35)
[2020-11-23 20:36] LABS: Basophils # 0.1 10^3/uL (0.0-0.1); Basophils % 0.5 %; Eosinophils # 0.4 10^3/uL (0.0-0.8); Eosinophils % 2.1 %; Hemoglobin 11.9 g/dL (11.5-15.3); Lymphocytes # 1.3 10^3/uL (0.8-4.8); Lymphocytes % 7.6 %; Mean Corpuscular HGB Conc 30.5 g/dL (30.0-36.0); Mean Corpuscular Hemoglobin 27.5 pg (28.0-34.0); Mean Corpuscular Volume 90.1 fL (81-99); Mean Platelet Volume 8.9 fL (7.4-10.4); Monocytes # 0.9 10^3/uL (0.2-0.9); Monocytes % 5.5 %; Neutrophils # 14.02 10^3/uL (1.8-7.7); Neutrophils % 83.2 %; Nucleated Red Blood Cells % 0 %; Platelet Count 326 10^3/cmm (130-400); Red Blood Count 4.33 10^6/uL (4.1-5.3); White Blood Count 16.9 10^3/uL (4.0-10.0)
[2020-11-23 20:55] LABS: Alanine Aminotransferase 177 U/L (0-33); Alkaline Phosphatase 173 IU/L (35-105); Anion Gap 13.7 (5-19); Aspartate Amino Transferase 142 U/L (0-32); Blood Urea Nitrogen 12 mg/dL (8-23); Calcium 9.4 mg/dL (8.5-10.5); Carbon Dioxide 34 mmol/L (22-29); Chloride 93 mmol/L (98-107); Globulin 3.5 g/dL (1.3-4.6); Glomerular Filtration Rate 83.7 mL/min (90-130); Glucose 158 mg/dL (65-115); Osmolality Calculated 287 mOsm/kg (285-295); Potassium 3.7 mmol/L (3.5-5.1); Sodium 137 mmol/L (136-145); Total Protein 7.5 g/dL (6.6-8.7)
[2020-11-23 20:57] LABS: Troponin(5th) Baseline 8 ng/L (0-10)
[2020-11-23] MEDS: iohexol 300 mg/mL 100 mL Btl IV (21:29)
[2020-11-23] MEDS: sodium chloride 0.9% 1,000 ML 150 ML IV (21:43)
[2020-11-23] MEDS: pantoprazole 40 mg SDV IVP (22:04)
--- NOTE | 2020-11-23 22:55 | PM.HP ---
Providers/Chief Complaint Admitting Physician: Onofre Latif MD Chief Complaint: abd pain History of Present Illness Michelle Walton is a 65 year old female with history of lymphedema, oxygen dependent COPD uses 3 L [id number], presented today with chief complaint of intractable nausea and vomiting. Patient is stating that her symptoms started 48 hours ago with nausea and vomiting, she has had multiple episode of emesis, she does not smoke or drink alcohol no recent use of antibiotics, she is denying fever, bloody diarrhea. She is experiencing epigastric pain which is radiating towards her back. No previous episode of pancreatitis, she denied history of diabetes. Because of worsening of abdominal pain and intractable nausea vomiting she decided to come to the hospital for further evaluation. Diagnostics in the ER revealed leukocytosis, she is afebrile does not meet sepsis criteria, lipase high CT abdomen revealed adrenal adenoma, grade 2/5 pancreatitis and cholelithiasis without CBD dilation, bilirubin is normal abnormal transaminases with high alkaline phosphatase, chest x-ray unremarkable, troponin VIII not complaining of chest pain, she does have history of COPD has active wheezing at the time of my evaluation she received DuoNeb treatment, opioids and was started on normal saline 150 mL/h which aspiration lactated Ringer IMPRESSION: 1. Acute grade 2/5 pancreatitis. 2. Reactive duodenitis. 3. Marked hepatomegaly. 4. Diffuse fatty infiltration liver. 5. Cholelithiasis. 6. Left adrenal adenoma. No follow-up recommended. Review of Systems Const: Reports: chills, body aches and fatigue; Denies: fever(s) Eyes: Denies: change in vision ENMT: Denies: throat pain Card: Denies: chest pain Resp: Denies: dyspnea GI: Reports: abdominal pain, nausea and vomiting : Denies: flank pain Musc: Denies: neck pain Skin/Breast: Denies: rash Neuro: Denies: headache(s) Psych: Denies: anxiety Endo: Denies: polyuria Randy/Lymph: Denies: easy bruising All/Imm: Denies: urticaria Medications/Allergies Home Medications Medication Instructions Recorded Confirmed Last Taken Type potassium chloride 20 mEq oral 20 meq PO ONCE each 08/31/19 10/04/20 Unknown History packet tizanidine 2 mg tablet 2 mg PO BID PRN #60 tab 11/01/19 10/04/20 Unknown Rx aspirin 81 mg tablet,delayed See Rx Instructions .ROUTE 03/23/20 10/04/20 Unknown Rx release .COMPLEX #30 tab nitroglycerin 0.4 mg sublingual 0.4 mg SUBLINGUAL Q5M PRN #50 tab 04/10/20 10/04/20 Unknown Rx tablet alendronate 70 mg tablet See Rx Instructions .ROUTE 05/07/20 10/04/20 Unknown Rx .COMPLEX #4 tab duloxetine 30 mg capsule,delayed See Rx Instructions .ROUTE 05/07/20 10/04/20 Unknown Rx release .COMPLEX #60 cap metoprolol succinate 100 mg 100 mg PO DAILY #90 tab 05/07/20 10/04/20 Unknown Rx tablet,extended release 24 hr montelukast 10 mg tablet See Rx Instructions .ROUTE 08/23/20 10/04/20 Unknown Rx .COMPLEX #30 tab albuterol sulfate 90 mcg/actuation See Rx Instructions .ROUTE 09/17/20 10/04/20 Unknown Rx aerosol inhaler .COMPLEX #18 g fluticasone fur. 100 mcg-umeclid See Rx Instructions .ROUTE 09/17/20 10/04/20 Unknown Rx 62.5 mcg-vilant 25 mcg .COMPLEX #60 blister inhalat.powder doxycycline hyclate 100 mg capsule 100 mg PO BID #20 cap 09/18/20 10/04/20 Unknown Rx nebulizer, tubing, mask, kit #1 ea 09/18/20 10/04/20 Unknown Rx nystatin 100,000 unit/mL oral 5 ml PO QID 7 Days #140 ml 09/18/20 10/04/20 Unknown Rx suspension guaifenesin 600 mg tablet, See Rx Instructions .ROUTE 10/01/20 10/04/20 Unknown Rx extended release 12 hr .COMPLEX #60 tab albuterol sulfate See Rx Instructions .ROUTE 10/05/20 Unknown Rx .COMPLEX #360 ml ergocalciferol (vitamin D2) 1,250 See Rx Instructions .ROUTE 11/06/20 Unknown Rx mcg (50,000 unit) capsule .COMPLEX #4 cap atorvastatin 10 mg tablet See Rx Instructions .ROUTE 11/08/20 Unknown Rx .COMPLEX #30 tab calcium carbonate 500 mg (1,250 See Rx Instructions .ROUTE 11/08/20 Unknown Rx mg)-vitamin D3 200 unit tablet .COMPLEX #30 tab ferrous sulfate 325 mg (65 mg See Rx Instructions .ROUTE 11/08/20 Unknown Rx iron) tablet .COMPLEX #60 tab furosemide 20 mg tablet See Rx Instructions .ROUTE 11/08/20 Unknown Rx .COMPLEX #60 tab isosorbide mononitrate 30 mg See Rx Instructions .ROUTE 11/08/20 Unknown Rx tablet,extended release 24 hr .COMPLEX #30 tab losartan 100 See Rx Instructions .ROUTE 11/08/20 Unknown Rx mg-hydrochlorothiazide 25 mg tablet .COMPLEX #30 tab magnesium oxide 400 mg (241.3 mg See Rx Instructions .ROUTE 11/08/20 Unknown Rx magnesium) tablet .COMPLEX #90 tab meloxicam 7.5 mg tablet See Rx Instructions .ROUTE 11/08/20 Unknown Rx .COMPLEX #30 tab roflumilast 500 mcg tablet See Rx Instructions .ROUTE 11/08/20 Unknown Rx .COMPLEX #30 tab trazodone 50 mg tablet See Rx Instructions .ROUTE 11/08/20 Unknown Rx .COMPLEX #30 tab Allergies Allergy/AdvReac Type Severity Reaction Status Date / Time ciprofloxacin [From Cipro] Allergy Severe ALGY-Difficulty Verified 10/04/20 11:42 Breathing grape Allergy Intermediate ALGY-Hives Verified 10/04/20 11:42 Penicillins Allergy Intermediate ALGY-Hives Verified 10/04/20 11:42 raisins Allergy ALGY-Rash Uncoded 10/04/20 11:12 PFSH Acute PFSH: Medical History (Updated 11/24/20 @ 01:01 by Onofre Latif MD) Acquired renal cyst Active asthma Advanced COPD Atelectasis Bilateral primary osteoarthritis of knee CAD (coronary artery disease), [place] coronary artery Collapsed vertebra, not elsewhere classified, thoracic region, sequela of fracture DDD (degenerative disc disease) Essential (primary) hypertension Facet syndrome, lumbar Idiopathic scoliosis and kyphoscoliosis Iron deficiency Lumbar stenosis Lumbosacral spondylosis without myelopathy Meralgia paresthetica, unspecified lower limb Mixed hyperlipidemia CASSIE (obstructive sleep apnea) Pain in thoracic spine Panlobular emphysema Sensorineural hearing loss, bilateral SOB (shortness of breath) Spondylolisthesis Tinnitus, bilateral Tobacco abuse Vitamin D deficiency, unspecified Surgical History History of hysterectomy Hx of section Family History Other CAD (coronary artery disease) Cancer Diabetes Hypertension Social History Smoking and tobacco status: former smoker Quit status (tobacco): has quit using tobacco Year quit tobacco: 2008 Former quit date comment: 1-2 PPD x 20 yrs Second hand smoke exposure: No Alcohol intake: never Lives independently: Yes Household members: family Marital status: / Current occupational status: disabled History of recent travel: No Current gender identity: Female Special sita needs: No Agree to transfusion: Yes Vitals/I&O/Wt Last Vital Signs Temp 98.1 F 11/23/20 20:11 Pulse 76 11/23/20 22:10 Resp 22 H 11/23/20 21:06 BP 155/63 11/23/20 22:10 Pulse Ox 94 11/23/20 22:10 11/23/20 11/23/20 11/23/20 06:59 14:59 22:59 Intake Total 500 / 500 Balance 500 / 500 Physical Exam Narrative: EXAM NARRATIVE: Morbidly obese female who appears stated age, clinically looks dehydrated Was actively wheezing at the time of my evaluation Hypertensive, was saturating well on 3 L nasal cannula No acute respite distress or chest pain S1, S2 no murmur appreciated Tender abdomen on mild palpation in midepigastric region with mild guarding Lower extremity nonpitting/lymphedema bilaterally Extremely dry skin She uses walker for ambulation EOMI, PERRLA GCS 15 no neurological deficits Awake alert oriented x3 Data : 11/23/20 20:28 11/23/20 20:28 A&P Assessment and plan (1) Acute pancreatitis: Status: Acute (2) Morbid obesity: Status: Acute (3) COPD exacerbation: Status: Acute Additional A&P Information Acute pancreatitis Grade 2/5 pancreatitis, reactive duodenitis, no signs of gastric outlet obstruction Leukocytosis greater than 15,000, calcium normal, BUN normal, no signs of sepsis, her leukocytosis secondary to stress response to inflammation She is a former smoker, does not drink alcohol no recent use of antibiotics no previous episode of pancreatitis, I do believe this episode is secondary to cholelithiasis and stone has passed that is why there is no intra-/extrahepatic dilation however she has high transaminases along alkaline phosphatase We will keep her on full liquid diet Morphine for analgesia Lactated Ringer at 75 mL/h Triglyceride levels are normal she is not diabetic Trend lipase level, she is not septic, CT abdomen is consistent with phlegmon associated inflammation, closely monitor for any signs of sepsis or necrotic pancreas, I would hold off on adding antibiotics for now COPD exacerbation with chronic hypoxic hypercapnic restaurant failure We will get ABG, currently she is wheezing during my evaluation Her bicarb is 34 on BMP Currently saturating well on 3L nasal cannula Chest x-ray is unremarkable no active signs of pneumonia Morbid obesity: Patient might benefit from outpatient obesity clinic Her last hemoglobin A1c 6.3, she would qualify for impaired glucose tolerance, would definitely benefit from Metformin and GLP-1 analog for weight loss, kindly consider outpatient endocrinology follow-up as well Full liquid diet DVT prophylaxis Lovenox Full code Attestations Medical Necessity Statement*: Anticipating stay in the hospital cross more than 2 midnights for management of acute pancreatitis, she has had recurrent nausea and vomiting at home, phlegmon evident on CT abdomen closely monitor for any signs of sepsis or necrosis of pancreas Time Spent in Patient Care: (>than 50% of time spent in counselling and/or direct pt care on unit). 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
--- NOTE | 2020-11-23 23:04 | PC.NURSE ---
patient report received from NELLY Amador and care transferred to NELLY Silverio
[2020-11-23 23:11] LABS: Triglycerides 141 mg/dL (0-150)
[2020-11-24] VITALS (19 sets, daily range): BP systolic 164–199; BP diastolic 78–96; PULSE 75–98; RESP 16–20; TEMP 36.6–36.8; O2SAT 93–98
[2020-11-24] MEDS: morphine 4 mg/mL SDV 1 mL 2 MG IVP ×5 (00:52→21:12)
[2020-11-24] MEDS: lactated ringers 1,000 ML 75 ML IV ×2 (00:53→16:48)
[2020-11-24] MEDS: enoxaparin 40 mg/0.4 mL Syringe SUBCUT (00:56)
[2020-11-24] MEDS: ipratropium-albuterol 3 mL Neb INHALATION ×3 (01:59→15:57)
[2020-11-24 04:45] LABS: ABG PH Result 7.36 (7.35-7.45); Arterial Blood Gas Hematocrit 35.5 % (37-47); Blood Gas Operator Identificat HARKR; Blood Gas Sample Site Brachial, right; Blood Gas Sample Type Arterial; HCO3 ABG 36.6 mmol/L (22-26); Oxygen Device NC
[2020-11-24 04:46] LABS: ABG PCO2 65.5 mmHg (35-45)
[2020-11-24 06:27] LABS: Basophils # 0.1 10^3/uL (0.0-0.1); Basophils % 0.4 %; Eosinophils # 0.3 10^3/uL (0.0-0.8); Eosinophils % 1.7 %; Hematocrit 38.4 % (37.0-47.0); Hemoglobin 11.5 g/dL (11.5-15.3); Lymphocytes % 6.7 %; Mean Corpuscular HGB Conc 29.9 g/dL (30.0-36.0); Mean Corpuscular Hemoglobin 27.2 pg (28.0-34.0); Mean Corpuscular Volume 90.8 fL (81-99); Mean Platelet Volume 9.1 fL (7.4-10.4); Monocytes # 0.8 10^3/uL (0.2-0.9); Monocytes % 5.2 %; Neutrophils # 12.51 10^3/uL (1.8-7.7); Neutrophils % 84.8 %; Nucleated Red Blood Cells % 0 %; Platelet Count 301 10^3/cmm (130-400); Red Blood Count 4.23 10^6/uL (4.1-5.3); Red Cell Distribution Width 14.4 % (12.1-15.1); White Blood Count 14.7 10^3/uL (4.0-10.0)
[2020-11-24 06:48] LABS: Alanine Aminotransferase 129 U/L (0-33); Albumin Level 3.6 g/dL (3.5-5.2); Alkaline Phosphatase 144 IU/L (35-105); Anion Gap 11.5 (5-19); Aspartate Amino Transferase 85 U/L (0-32); Blood Urea Nitrogen 10 mg/dL (8-23); Calcium 8.8 mg/dL (8.5-10.5); Carbon Dioxide 33 mmol/L (22-29); Chloride 97 mmol/L (98-107); Globulin 3.6 g/dL (1.3-4.6); Glomerular Filtration Rate 123.4 mL/min (90-130); Glucose 148 mg/dL (65-115); Osmolality Calculated 288 mOsm/kg (285-295); Potassium 3.5 mmol/L (3.5-5.1); Sodium 138 mmol/L (136-145); Total Bilirubin 0.7 mg/dL (0.15-1.2); Total Protein 7.2 g/dL (6.6-8.7)
[2020-11-24 06:57] LABS: Lipase 1087 U/L (13-60)
[2020-11-24] MEDS: roflumilast 500 mcg Tablet PO (10:30)
[2020-11-24] MEDS: metoprolol succinate ER (24 HR) 100 mg Tablet PO (10:30)
[2020-11-24] MEDS: losartan 50 mg Tablet 25 MG PO (10:30)
[2020-11-24] MEDS: isosorbide mononitrate ER 30 mg Tablet PO (10:30)
--- NOTE | 2020-11-24 17:31 | P.PN_ITS ---
Vitals/I&O/Wt Last Vital Signs Temp 98.0 F 11/24/20 15:57 Pulse 93 11/24/20 16:03 Resp 20 H 11/24/20 15:57 BP 164/92 11/24/20 15:57 Pulse Ox 97 11/24/20 15:57 11/24/20 11/24/20 11/24/20 06:59 14:59 22:59 Intake Total 400 / 900 1180 / 1180 Output Total 700 / 700 Balance -300 / 200 1180 / 1180 Physical Exam Const: COMMON NORMALS: patient oriented x3 HENMT: COMMON NORMALS: normocephalic and atraumatic HEAD & SCALP: normocephalic and atraumatic Chest: CHEST: Yes Symmetrical chest wall rise Resp: COMMON NORMALS: normal respiratory effort and clear to auscultation bilaterally EFFORT & INSPECTION: Yes symmetric chest movement AUSCULTATION: clear to auscultation bilaterally Cardio: COMMON NORMALS: regular rate, regular rhythm, S1 normal heart sound present, S2 normal heart sound present, No gallops present (Cardio), No murmurs present (Cardio), No rub (Cardio) and Peripheral pulses 2+ throughout RATE: regular rate RHYTHM: regular rhythm HEART SOUNDS: S1 normal heart sound present and S2 normal heart sound present PERIPHERAL PULSES: Peripheral pulses 2+ throughout GI: AUSCULTATION: Yes normoactive bowel sounds RECTAL EXAM: deferred OTHER: Obese abdomen with epigastric tenderness with mild guarding no rigidity no rebound tenderness. Extremity: COMMON NORMALS: no clubbing, cyanosis or edema and no pedal edema Neuro: COMMON NORMALS: patient oriented x3 Data : 11/24/20 05:57 11/24/20 05:57 A&P Assessment and plan (1) Acute pancreatitis: Ac Pancreatitis likely 2/2 to passed G.B Stone Elevated transaminase coming down. Currently she is still complaining of severe epigastric pain,but no nausea,vomiting.Has remained afebrile, leukocytosis is trending down.No signs of pancreatic necrosis on C.T abdomen and pelvis, no clinical signs of sepsis. Patient is on clear liquid diet. Pain control IV hydration. Status: Acute (2) Chronic hypercapnic respiratory failure: Likely secondary to COPD, OHS, CASSIE (overlap syndrome). ABG: pH: 7.33, PCO2:65, PO2:72, FiO2: 30% Duo nebs Supplemental oxygen as needed to maintain saturation greater than 90% Status: Acute (3) Vitamin D deficiency: Cholecalciferol 5,000 units/day orally for 6 weeks Status: Acute (4) Essential (primary) hypertension: Status: Acute (5) CAD (coronary artery disease), [place] coronary artery: Status: Acute (6) COPD exacerbation: Status: Acute (7) Morbid obesity: Status: Acute Attestations Medical Necessity Statement*: Patient needs to be in hospital for the management of Ac Pancreatitis. 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
--- NOTE | 2020-11-24 19:54 | PC.NURSE ---
shift assessment pt has had a pain rating of 8/10 - 10/10 and 2mg of morphine was not helping, this nurse informed Dr Henderson who ordered 2mg PO of dilaudid, pt was given 2 mg of po dilaudid pt was able to sleep for several hours and stated her pain was much better after taking the pill. she stated it really helped her relax compared to just the morphine.
[2020-11-25] VITALS (24 sets, daily range): BP systolic 128–186; BP diastolic 74–95; PULSE 81–98; RESP 16–24; TEMP 36.6–37.2; O2SAT 90–99
[2020-11-25] MEDS: enoxaparin 40 mg/0.4 mL Syringe SUBCUT (00:12)
[2020-11-25] MEDS: ipratropium-albuterol 3 mL Neb INHALATION ×5 (00:35→21:06)
[2020-11-25] MEDS: morphine 4 mg/mL SDV 1 mL 2 MG IVP ×4 (03:38→23:36)
[2020-11-25] MEDS: lactated ringers 1,000 ML 75 ML IV ×2 (06:34→20:11)
[2020-11-25] MEDS: losartan 50 mg Tablet 25 MG PO (07:57)
[2020-11-25] MEDS: metoprolol succinate ER (24 HR) 100 mg Tablet PO (07:57)
[2020-11-25] MEDS: roflumilast 500 mcg Tablet PO (07:58)
[2020-11-25] MEDS: isosorbide mononitrate ER 30 mg Tablet PO (07:58)
[2020-11-25] MEDS: cholecalciferol (vitamin D3) 5,000 unit Tablet 5000 UNIT PO (07:58)
[2020-11-25] MEDS: polyethylene glycol 3350 Pkt 17 gm PO ×2 (10:40→18:39)
[2020-11-25] MEDS: docusate sodium 100 mg Capsule PO ×2 (10:40→18:39)
--- NOTE | 2020-11-25 12:21 | P.PN_ITS ---
Subjective Subjective: Interval history: is doing fine, epigastric abdominal pain is improving.She deny any nausea,vomiting. She has remained afebrile, WBC is slowly coming down. Her other vitals and labs have been reviewed. Vitals/I&O/Wt Last Vital Signs Temp 98.6 F 11/25/20 11:59 Pulse 84 11/25/20 12:14 Resp 18 11/25/20 12:14 BP 128/74 11/25/20 11:59 Pulse Ox 95 11/25/20 12:14 11/24/20 11/25/20 11/25/20 22:59 06:59 14:59 Intake Total 1000 / 2180 400 / 400 Output Total 350 / 350 200 / 550 Balance -350 / 830 800 / 1630 400 / 400 Physical Exam Const: COMMON NORMALS: patient oriented x3 HENMT: COMMON NORMALS: normocephalic and atraumatic HEAD & SCALP: normocephalic and atraumatic Chest: CHEST: Yes Symmetrical chest wall rise Resp: COMMON NORMALS: normal respiratory effort EFFORT & INSPECTION: Yes symmetric chest movement OTHER: B/L Expiratory wheezing present. Cardio: COMMON NORMALS: regular rate, regular rhythm, S1 normal heart sound present, S2 normal heart sound present, No gallops present (Cardio), No murmurs present (Cardio), No rub (Cardio) and Peripheral pulses 2+ throughout RATE: regular rate RHYTHM: regular rhythm HEART SOUNDS: S1 normal heart sound present and S2 normal heart sound present PERIPHERAL PULSES: Peripheral pulse s 2+ throughout GI: AUSCULTATION: Yes normoactive bowel sounds RECTAL EXAM: deferred OTHER: Obese abdomen with epigastric tenderness with mild guarding no rigidity no rebound tenderness. Extremity: COMMON NORMALS: no clubbing, cyanosis or edema and no pedal edema Neuro: COMMON NORMALS: patient oriented x3 Data : 11/24/20 05:57 11/24/20 05:57 A&P Assessment and plan (1) Acute pancreatitis: Ac Pancreatitis likely 2/2 to passed G.B Stone Elevated transaminase coming down. Currently she is still complaining of severe epigastric pain,but no nausea,v omiting.Has remained afebrile, leukocytosis is trending down.No signs of pancreatic necrosis on C.T abdomen and pelvis, no clinical signs of sepsis. Patient was initially on full liquid diet the plan is to advance the diet. Pain control Status: Acute (2) Chronic hypercapnic respiratory failure: Likely secondary to COPD, OHS, CASSIE (overlap syndrome). ABG: pH: 7.33, PCO2:65, PO2:72, FiO2: 30% Duo nebs Supplemental oxygen as needed to maintain saturation greater than 90%. Currently at her baseline oxygen requirement Status: Acute (3) Leukocytosis: Low suspicion for infection. Status: Acute (4) Elevated transaminase level: Status: Acute (5) Vitamin D deficiency: Cholecalciferol 5,000 units/day orally for 6 weeks Status: Acute (6) Essential (primary) hypertension: Status: Acute (7) CAD (coronary artery disease), [place] coronary artery: Status: Acute (8) COPD exacerbation: Status: Acute (9) Morbid obesity: Status: Acute Additional A&P Information Acute pancreatitis Grade 2/5 pancreatitis, reactive duodenitis, no signs of gastric outlet obstruction Leukocytosis greater than 15,000, calcium normal, BUN normal, no signs of sepsis, her leukocytosis secondary to stress response to inflammation She is a former smoker, does not drink alcohol no recent use of antibiotics no previous episode of pancreatitis, I do believe this episode is secondary to cholelithiasis and stone has passed that is why there is no intra-/extrahepatic dilation however she has high transaminases along alkaline phosphatase We will keep her on full liquid diet Morphine for analgesia Lactated Ringer at 75 mL/h Triglyceride levels are normal she is not diabetic Trend lipase level, she is not septic, CT abdomen is consistent with phlegmon associated inflammation, closely monitor for any signs of sepsis or necrotic pancreas, I would hold off on adding antibiotics for now COPD exacerbation with chronic hypoxic hypercapnic restaurant failure We will get ABG, currently she is wheezing during my evaluation Her bicarb is 34 on BMP Currently saturating well on 3L nasal cannula Chest x-ray is unremarkable no active signs of pneumonia Morbid obesity: Patient might benefit from outpatient obesity clinic Her last hemoglobin A1c 6.3, she would qualify for impaired glucose tolerance, would definitely benefit from Metformin and GLP-1 analog for weight loss, kindly consider outpatient endocrinology follow-up as well Full liquid diet DVT prophylaxis Lovenox Full code Attestations Medical Necessity Statement*: Patient needs to be in hospital for the ma nagement of acute pancreatitis . 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
--- NOTE | 2020-11-25 20:16 | PC.NURSE ---
shift summary pt rested most of the morning after a PRN 2mg Dilaudid was given, pt stated she had a hard time eating her lunch so diet was not advanced as she was not tolerating her diet well. pt has been able to get out of bed and to [facility] with 1 assist. pt complained about being constipated this am so this nurse obtained an order for miralax and colace to help her have a BM, so far no success. no other changes this shift.
[2020-11-26] VITALS (20 sets, daily range): BP systolic 141–185; BP diastolic 55–85; PULSE 76–105; RESP 18–26; TEMP 36.3–37.4; O2SAT 91–99
[2020-11-26] MEDS: enoxaparin 40 mg/0.4 mL Syringe SUBCUT (00:49)
[2020-11-26] MEDS: HYDROmorphone 1 mg/mL INJ 1 mL IVP (02:59)
[2020-11-26 05:20] LABS: Basophils # 0.1 10^3/uL (0.0-0.1); Basophils % 0.6 %; Eosinophils # 0.2 10^3/uL (0.0-0.8); Hematocrit 35.4 % (37.0-47.0); Hemoglobin 10.8 g/dL (11.5-15.3); Lymphocytes # 1.2 10^3/uL (0.8-4.8); Lymphocytes % 5.2 %; Mean Corpuscular HGB Conc 30.5 g/dL (30.0-36.0); Mean Corpuscular Hemoglobin 28.1 pg (28.0-34.0); Mean Corpuscular Volume 91.9 fL (81-99); Mean Platelet Volume 9.1 fL (7.4-10.4); Monocytes # 1.3 10^3/uL (0.2-0.9); Monocytes % 5.5 %; Neutrophils # 19.81 10^3/uL (1.8-7.7); Neutrophils % 84.4 %; Nucleated Red Blood Cells % 0 %; Platelet Count 278 10^3/cmm (130-400); Red Blood Count 3.85 10^6/uL (4.1-5.3); Red Cell Distribution Width 14.4 % (12.1-15.1); White Blood Count 23.5 10^3/uL (4.0-10.0)
[2020-11-26 05:40] LABS: Alanine Aminotransferase 56 U/L (0-33); Albumin Level 3.1 g/dL (3.5-5.2); Alkaline Phosphatase 120 IU/L (35-105); Anion Gap 10.4 (5-19); Aspartate Amino Transferase 19 U/L (0-32); Blood Urea Nitrogen 11 mg/dL (8-23); Calcium 8.6 mg/dL (8.5-10.5); Carbon Dioxide 33 mmol/L (22-29); Chloride 95 mmol/L (98-107); Globulin 3.7 g/dL (1.3-4.6); Glomerular Filtration Rate 159.7 mL/min (90-130); Glucose 127 mg/dL (65-115); Osmolality Calculated 281 mOsm/kg (285-295); Potassium 3.4 mmol/L (3.5-5.1); Sodium 135 mmol/L (136-145); Total Bilirubin 0.8 mg/dL (0.15-1.2); Total Protein 6.8 g/dL (6.6-8.7)
[2020-11-26] MEDS: ipratropium-albuterol 3 mL Neb INHALATION ×3 (07:39→17:58)
[2020-11-26] MEDS: docusate sodium 100 mg Capsule PO (08:30)
[2020-11-26] MEDS: roflumilast 500 mcg Tablet PO (08:30)
[2020-11-26] MEDS: cholecalciferol (vitamin D3) 5,000 unit Tablet 5000 UNIT PO (08:30)
[2020-11-26] MEDS: isosorbide mononitrate ER 30 mg Tablet PO (08:31)
[2020-11-26] MEDS: losartan 50 mg Tablet 25 MG PO (08:31)
[2020-11-26] MEDS: metoprolol succinate ER (24 HR) 100 mg Tablet PO (08:31)
[2020-11-26] MEDS: polyethylene glycol 3350 Pkt 17 gm PO (08:32)
[2020-11-26] MEDS: morphine 4 mg/mL SDV 1 mL 2 MG IVP ×2 (08:32→13:20)
--- NOTE | 2020-11-26 08:48 | PC.NURSE ---
called patient's daughter as requested and transferred call to patient's room as requested.
--- NOTE | 2020-11-26 09:09 | PC.NURSE ---
Rcvd verbal order from Dr Henderson for Fleets enema x1, mucinex 600mg Q12H, dilaudid 2mg PO Q6H, lactulose 30mg PO TID, and CBC now. [employer]p Platforms put orders in.
--- NOTE | 2020-11-26 09:27 | P.PN_ITS ---
Subjective Subjective: Interval history: is complaining of continued abdominal pain. Her Wbc count has also acutely worsened. CBC was repeated to make sure it not an error.She has no fever,or any other signs of sepsis. Vitals/I&O/Wt Last Vital Signs Temp 98.1 F 11/26/20 07:00 Pulse 98 11/26/20 07:46 Resp 18 11/26/20 08:32 BP 141/65 11/26/20 07:25 Pulse Ox 99 11/26/20 07:39 11/25/20 11/26/20 11/26/20 22:59 06:59 14:59 Intake Total 1240 / 1640 1000 / 2640 Output Total 0 / 0 Balance 1240 / 1640 1000 / 2640 Physical Exam Const: COMMON NORMALS: patient oriented x3 HENMT: COMMON NORMALS: normocephalic and atraumatic HEAD & SCALP: normocephalic and atraumatic Chest: CHEST: Yes Symmetrical chest wall rise Resp: COMMON NORMALS: normal respiratory effort EFFORT & INSPECTION: Yes symmetric chest movement OTHER: B/L Expiratory wheezing present. Cardio: COMMON NORMALS: regular rate, regular rhythm, S1 normal heart sound present, S2 normal heart sound present, No gallops present (Cardio), No murmurs present (Cardio), No rub (Cardio) and Peripheral pulses 2+ throughout RATE: regular rate RHYTHM: regular rhythm HEART SOUNDS: S1 normal heart sound present and S2 normal heart sound present PERIPHERAL PULSES: Peripheral pulses 2+ throughout GI: AUSCULTATION: Yes normoactive bowel sounds RECTAL EXAM: deferred OTHER: Obese abdomen with epigastric tenderness with mild guarding no rigidity no rebound tenderness. Extremity: COMMON NORMALS: no clubbing, cyanosis or edema and no pedal edema Neuro: COMMON NORMALS: patient oriented x3 Data : 11/26/20 09:39 11/26/20 04:48 A&P Assessment and plan (1) Acute pancreatitis: Ac Pancreatitis likely 2/2 to passed G.B Stone Elevated transaminase coming down. Currently she is still complaining of severe epigastric pain,but no nausea,vomiting.Has remained afebrile, leukocytosis is trending down.No signs of pancreatic necrosis on C.T abdomen and pelvis, no clinical signs of sepsis. repeat C.T Abdomen and pelvis without contrast: Patient was initially on full liquid diet the plan is to advance the diet. Pain control Status: Acute (2) Chronic hypercapnic respiratory failure: Likely secondary to COPD, OHS, CASSIE (overlap syndrome). ABG: pH: 7.33, PCO2:65, PO2:72, FiO2: 30% Duo nebs Supplemental oxygen as needed to maintain saturation greater than 90%. Currently at her baseline oxygen requirement Status: Acute (3) Leukocytosis: Low suspicion for infection. Status: Acute (4) Elevated transaminase level: Status: Acute (5) Vitamin D deficiency: Cholecalciferol 5,000 units/day orally for 6 weeks Status: Acute (6) Essential (primary) hypertension: Status: Acute (7) CAD (coronary artery disease), [place] coronary artery: Status: Acute (8) COPD exacerbation: Status: Acute (9) Morbid obesity: Status: Acute Additional A&P Information Acute pancreatitis Grade 2/5 pancreatitis, reactive duodenitis, no signs of gastric outlet obstruction Leukocytosis greater than 15,000, calcium normal, BUN normal, no signs of sepsis, her leukocytosis secondary to stress response to inflammation She is a former smoker, does not drink alcohol no recent use of antibiotics no previous episode of pancreatitis, I do believe this episode is secondary to cholelithiasis and stone has passed that is why there is no intra-/extrahepatic dilation however she has high transaminases along alkaline phosphatase We will keep her on full liquid diet Morphine for analgesia Lactated Ringer at 75 mL/h Triglyceride levels are normal she is not diabetic Trend lipase level, she is not septic, CT abdomen is consistent with phlegmon associated inflammation, closely monitor for any signs of sepsis or necrotic pancreas, I would hold off on adding antibiotics for now COPD exacerbation with chronic hypoxic hypercapnic restaurant failure We will get ABG, currently she is wheezing during my evaluation Her bicarb is 34 on BMP Currently saturating well on 3L nasal cannula Chest x-ray is unremarkable no active signs of pneumonia Morbid obesity: Patient might benefit from outpatient obesity clinic Her last hemoglobin A1c 6.3, she would qualify for impaired glucose tolerance, would definitely benefit from Metformin and GLP-1 analog for weight loss, kindly consider outpatient endocrinology follow-up as well Full liquid diet DVT prophylaxis Lovenox Full code Attestations Medical Necessity Statement*: Patient needs to be in hospital for the management of acute pancreatitis . 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
[2020-11-26 09:56] LABS: Hematocrit 34.8 % (37.0-47.0); Hemoglobin 10.5 g/dL (11.5-15.3); Mean Corpuscular HGB Conc 30.2 g/dL (30.0-36.0); Mean Corpuscular Hemoglobin 27.6 pg (28.0-34.0); Mean Corpuscular Volume 91.3 fL (81-99); Mean Platelet Volume 9.2 fL (7.4-10.4); Platelet Count 282 10^3/cmm (130-400); Red Blood Count 3.81 10^6/uL (4.1-5.3); Red Cell Distribution Width 14.3 % (12.1-15.1); White Blood Count 22.3 10^3/uL (4.0-10.0)
[2020-11-26 10:22] LABS: Absolute Eosinophils 0.2 10^3/cmm (0.0-0.7); Absolute Segmented Neutrophil 21.2 10/cmm (1.6-7.1); Band Neutrophils Absolute 0.2 10^3/cmm (0.0-1.2); Eosinophils 1 %; Lymphocytes 3 %; Segmented Neutrophils 95 %; Total Cells Counted 100 (0-100)
[2020-11-26 10:23] LABS: Absolute Neutrophil 21.4 10^3/cmm (1.4-6.5); Lymphocytes Absolute 0.7 10^3/cmm (1.2-3.4); Platelet Estimate Normal (Normal); Smudge Cells 1+
--- NOTE | 2020-11-26 10:36 | DCPLANNER ---
Pg 2 of IM updated and reviewed with pt. No questions, she believes she is going home today. Copy provided.
[2020-11-26] MEDS: Fleet Enema 133 mL Enema PR (11:18)
--- NOTE | 2020-11-26 12:01 | PC.NURSE ---
patient had 1 small BM after enema was given
[2020-11-26] MEDS: lactulose oral liq 20 gm/30 mL UDC 30 GM PO (14:24)
--- NOTE | 2020-11-26 15:24 | PC.NURSE ---
small loose BM at this time.
--- NOTE | 2020-11-26 16:02 | PC.NURSE ---
patient had 1 large loose BM
--- NOTE | 2020-11-26 16:04 | PC.NURSE ---
Called patient's contact Noemi as requested by patient. answer parole or probation officer said this call an not be completed at this time, please try again.
--- NOTE | 2020-11-26 16:16 | PC.RESP ---
Pulmonary Rehab information sent to patient.
--- NOTE | 2020-11-26 16:38 | PC.NURSE ---
patient had large loose BM
--- NOTE | 2020-11-26 16:43 | PC.NURSE ---
notified Dr Henderson that patient has had [address] Henderson, discontinue Lactulose and advance diet. sheet writer put orders in for GI Soft diet and discontinued Lactulose order.
[2020-11-26] MEDS: guaiFENesin 600 mg Tablet PO (16:57)
--- NOTE | 2020-11-26 17:20 | PC.NURSE ---
Patient said she has anxiety attacks and she needs medication for it. Hazardous Material Technician notified Dr Henderson
--- NOTE | 2020-11-26 17:34 | CTR_ITS ---
PROCEDURE INFORMATION: Exam: CT Abdomen And Pelvis Without Contrast Exam date and time: 11/26/2020 7:34 PM Age: 65 years old Clinical indication: Abdominal pain; Localized; Prior surgery; Surgery type: , hyst; Patient HX: Left side abd pain TECHNIQUE: Imaging protocol: Computed tomography of the abdomen and pelvis without contrast. Radiation optimization: All CT scans at this facility use at least one of these dose optimization techniques: automated exposure control; mA and/or kV adjustment per patient size (includes targeted exams where dose is matched to clinical indication); or iterative reconstruction. COMPARISON: CT abdomen pelvis w con* [id number] 11/23/2020 9:38 PM RADIATION DOSE METRICS: Total DLP (mGy-cm): 1680.55 FINDINGS: Lungs: Bibasilar atelectasis versus minimal infiltrate. Liver: Liver enlarged with hepatic steatosis. Gallbladder and bile ducts: Cholelithiasis. Pancreas: Moderate edema in the upper abdomen somewhat about the pancreas and duodenum may reflect a pancreatitis or duodenitis depending on the clinical scenario. Spleen: Normal. No splenomegaly. Adrenal glands: Left adrenal 2.3 cm low-density nodule suggestive of a benign adenoma. Kidneys and ureters: Right kidney benign cyst, negative for follow-up advised. Stomach and bowel: Unremarkable. No obstruction. No mucosal thickening. Appendix: No evidence of appendicitis. Intraperitoneal space: Unremarkable. No free air. No significant fluid collection. Vasculature: Unremarkable. No abdominal aortic aneurysm. Lymph nodes: Unremarkable. No enlarged lymph nodes. Urinary bladder: Unremarkable as visualized. Reproductive: Unremarkable as visualized. Bones/joints: T12 vertebral body compression fracture may be chronic without retropulsion of bony fragments. Soft tissues: Unremarkable. CT/CT abdomen pelvis wo con [id number] IMPRESSION: 1. Moderate edema in the upper abdomen somewhat about the pancreas and duodenum may reflect a pancreatitis or duodenitis depending on the clinical scenario, somewhat similar to prior exam. 2. Left adrenal 2.3 cm low-density nodule suggestive of a benign adenoma. 3. T12 vertebral body compression fracture may be chronic without retropulsion of bony fragments. 4. Right kidney benign cyst, negative for follow-up advised. 5. Bibasilar atelectasis versus minimal infiltrate. 6. Cholelithiasis. 7. Liver enlarged with hepatic steatosis. COMMENTS: 1. Consistent with the [employer] [place] [employer]'s Incidental Findings Committee white paper (J Am Eliel Radiol 2017): For any incidental adrenal lesion greater than 1 cm but less than 4 cm classified in this report as benign, likely benign, or containing fat (including classification as an adenoma or myelolipoma), no follow-up imaging is recommended per consensus recommendations based on imaging criteria. Further lab evaluation could be pursued if warranted based on clinical findings. 2. Consistent with the [employer] [place] [employer]'s Incidental Findings Committee white paper (J Am Eliel Radiol 2018): Any incidental renal lesion less than 1 cm or classified as too small to characterize, or any incidental cystic renal lesion characterized as simple-appearing, is likely benign. No follow-up imaging is recommended for these lesions per consensus recommendations based on imaging criteria. Radiation Dose CTDIVOL = (mGy): DLP = 1680.55 (mGy-cm)
[2020-11-26] MEDS: iohexol 300 mg/mL 50 mL Btl PO (19:35)
--- NOTE | 2020-11-26 20:34 | PC.NURSE ---
patient not using call light, just yelling nurse. complaining of abdomen pain and medicine not working. nurse notified
[2020-11-27] VITALS (16 sets, daily range): BP systolic 158–187; BP diastolic 60–78; PULSE 0–111; RESP 16–20; TEMP 36.7–37.1; O2SAT 86–96
[2020-11-27] MEDS: ipratropium-albuterol 3 mL Neb INHALATION ×3 (00:32→12:23)
[2020-11-27] MEDS: enoxaparin 40 mg/0.4 mL Syringe SUBCUT (00:46)
[2020-11-27] MEDS: HYDROmorphone 1 mg/mL INJ 1 mL IVP ×3 (01:54→09:34)
[2020-11-27 05:36] LABS: Alanine Aminotransferase 48 U/L (0-33); Albumin Level 3.6 g/dL (3.5-5.2); Alkaline Phosphatase 131 IU/L (35-105); Anion Gap 13.3 (5-19); Aspartate Amino Transferase 17 U/L (0-32); Blood Urea Nitrogen 12 mg/dL (8-23); Carbon Dioxide 33 mmol/L (22-29); Chloride 93 mmol/L (98-107); Glomerular Filtration Rate 159.7 mL/min (90-130); Glucose 126 mg/dL (65-115); Osmolality Calculated 283 mOsm/kg (285-295); Potassium 3.3 mmol/L (3.5-5.1); Sodium 136 mmol/L (136-145); Total Bilirubin 0.7 mg/dL (0.15-1.2); Total Protein 7.6 g/dL (6.6-8.7)
[2020-11-27 06:22] LABS: Basophils # 0.1 10^3/uL (0.0-0.1); Basophils % 0.5 %; Eosinophils # 0.3 10^3/uL (0.0-0.8); Eosinophils % 1.1 %; Hematocrit 36.1 % (37.0-47.0); Hemoglobin 10.8 g/dL (11.5-15.3); Lymphocytes # 1.4 10^3/uL (0.8-4.8); Lymphocytes % 5.8 %; Mean Corpuscular HGB Conc 29.9 g/dL (30.0-36.0); Mean Corpuscular Hemoglobin 27.5 pg (28.0-34.0); Mean Corpuscular Volume 91.9 fL (81-99); Mean Platelet Volume 9.5 fL (7.4-10.4); Monocytes # 1.1 10^3/uL (0.2-0.9); Monocytes % 4.8 %; Neutrophils # 20.29 10^3/uL (1.8-7.7); Neutrophils % 85.5 %; Nucleated Red Blood Cells % 0 %; Platelet Count 318 10^3/cmm (130-400); Red Blood Count 3.93 10^6/uL (4.1-5.3); Red Cell Distribution Width 14.2 % (12.1-15.1); White Blood Count 23.7 10^3/uL (4.0-10.0)
[2020-11-27] MEDS: roflumilast 500 mcg Tablet PO (09:32)
[2020-11-27] MEDS: guaiFENesin 600 mg Tablet PO (09:32)
[2020-11-27] MEDS: docusate sodium 100 mg Capsule PO (09:32)
[2020-11-27] MEDS: losartan 50 mg Tablet 25 MG PO (09:32)
[2020-11-27] MEDS: cholecalciferol (vitamin D3) 5,000 unit Tablet 5000 UNIT PO (09:32)
[2020-11-27] MEDS: isosorbide mononitrate ER 30 mg Tablet PO (09:32)
[2020-11-27] MEDS: metoprolol succinate ER (24 HR) 100 mg Tablet PO (09:32)
[2020-11-27] MEDS: sennosides-docusate Tablet 1 TAB PO (09:32)
--- NOTE | 2020-11-27 10:46 | PC.NURSE ---
Dilaudid given at 0934. Reassess didn't come up in OCT. Patient rates pain 1-2 at this time. Charge nurse notified.
--- NOTE | 2020-11-27 10:58 | P.DS_ITS ---
Discharge Providers Date of Admission: 11/23/20 21:52 Date of Discharge: November 27, 2020 Attending Provider at Admission: Onofre Latif MD Attending Provider at Discharge: Demetrius Henderson MD Diagnoses at Discharge Discharge Diagnosis (1) Acute pancreatitis: Status: Resolved (2) Chronic hypercapnic respiratory failure: Status: Chronic (3) Leukocytosis: Status: Acute (4) Elevated transaminase level: Status: Resolved (5) Vitamin D deficiency: Status: Acute (6) Essential (primary) hypertension: Status: Acute (7) CAD (coronary artery disease), [place] coronary artery: Status: Acute (8) COPD exacerbation: Status: Acute (9) Morbid obesity: Status: Acute Reason for Visit Reason for Visit: abd pain Hospital Course Hospital Course 65 year old female with history of lymphedema, oxygen dependent COPD uses 3 L [id number], presented today with chief complaint of intractable nausea and vomiting. Patient is stating that her symptoms started 48 hours ago with nausea and vomiting, she has had multiple episode of emesis, she does not smoke or drink alcohol no recent use of antibiotics, she is denying fever, bloody diarrhea. She is experiencing epigastric pain which is radiating towards her back.Further diagnostic work up revealed acute pancreatitis, possibly secondary to passed gallbladder stone, as the CT abdomen showed acute grade 2/5 pancreatitis. Reactive duodenitis. Marked hepatomegaly. Diffuse fatty infiltration liver. Cholelithiasis. Left adrenal adenoma. Her transaminases were also elevated, she was kept n.p.o., on IV hydration, as well as pain control. Later when her abdominal pain subsided, her nausea and vomiting, she was encouraged to advance her p.o. intake, at the time of discharge she was tolerating diet, her pain was well controlled, liver function tests were normalizing, she had no signs of sepsis, no signs of pancreatic necrosis, though she had leukocytosis on discharge., she was also managed for COPD exacerbation she was at her baseline oxygen requirement, she was discharged on azithromycin 500 mg p.o. daily for 5 days. She was also managed for severe vitamin D deficiency, started on cholecalciferol 5000 units daily for 4-6 weeks. She will follow surgery as an outpatient as possible cause of acute pancreatitis being possible cholelithiasis. Patient responded well to the above medical management, and is being discharged in stable condition. Physical Exam Const: COMMON NORMALS: patient oriented x3 HENMT: COMMON NORMALS: normocephalic and atraumatic HEAD & SCALP: normocephalic and atraumatic Chest: CHEST: Yes Symmetrical chest wall rise Resp: COMMON NORMALS: normal respiratory effort EFFORT & INSPECTION: Yes symmetric chest movement OTHER: B/L Expiratory wheezing present. Cardio: COMMON NORMALS: regular rate, regular rhythm, S1 normal heart sound present, S2 normal heart sound present, No gallops present (Cardio), No murmurs present (Cardio), No rub (Cardio) and Peripheral pulses 2+ throughout RATE: regular rate RHYTHM: regular rhythm HEART SOUNDS: S1 normal heart sound present and S2 normal heart sound present PERIPHERAL PULSES: Peripheral pulses 2+ throughout GI: COMMON NORMALS: Normal to inspection, nondistended, normoactive bowel sounds present and Soft to palpation AUSCULTATION: Yes normoactive bowel sounds PALPATION: Yes Soft to palpation RECTAL EXAM: deferred OTHER: Obese abdomen Extremity: COMMON NORMALS: no clubbing, cyanosis or edema and no pedal edema Neuro: COMMON NORMALS: patient oriented x3 Discharge Data Data Completed and Pending: Completed Studies During Hospitalization Category Date Time Status CT abdomen pelvis w con* [id number] Urge nt Cat Scan 11/23/20 20:[address] abdomen pelvis wo con [id number] Rout ine Cat Scan 11/26/20 17:34 Completed XR chest 1V oumar ble [id number] Stat Exams 11/23/20 20:08 Completed Labs from last 24 hours 11/27/20 11/27/20 04:33 04:33 WBC 23.7 H RBC 3.93 L Hgb 10.8 L Hct 36.1 L MCV 91.9 MCH 27.5 L MCHC 29.9 L RDW 14.2 Plt Count 318 MPV 9.5 Neut % (Auto) 85.5 Lymph % (Auto) 5.8 [place] % (Auto) 4.8 Eos % (Auto) 1.1 Baso % (Auto) 0.5 Neut # (Auto) 20.29 H Lymph # (Auto) 1.4 [place] # (Auto) 1.1 H Eos # (Auto) 0.3 Baso # (Auto) 0.1 Nucleated RBC % (a uto) 0 Nucleated RBCs # 0.0 Sodium 136 Potassium 3.3 L Chloride 93 L Carbon Dioxide 33 H Anion Gap 13.3 BUN 12 Creatinine 0.4 L GFR Calculation 159.7 H Glucose 126 H Calculated Osmolal ity 283 L Calcium 9.0 Total Bilirubin 0.7 AST 17 ALT 48 H Alkaline Phosphata se 131 H Total Protein 7.6 Albumin 3.6 Globulin 4.0 Vitals: Last Vital Signs Temp 98.7 F 11/27/20 07:33 Pulse 100 11/27/20 07:59 Resp 18 11/27/20 09:34 BP 187/60 11/27/20 09:32 Pulse Ox 96 11/27/20 09:34 Discharge Plan Discharge Patient Disposition: Home Condition: Stable Prescriptions: New azithromycin 500 mg tablet 500 mg PO DAILY 5 Days RF: 0 cholecalciferol (vitamin D3) 125 mcg (5,000 unit) Tablet 5,000 unit PO DAILY 30 Days RF: 0 Continued metoprolol succinate 100 mg tablet extended release 24 hr 100 mg PO DAILY Qty: 90 RF: 1 nystatin 100,000 unit/mL suspension 5 ml PO QID 7 Days Qty: 140 RF: 0 (DME) nebulizer, tubing, mask, kit See Rx Instructions .Route .MEDSUPPLY Qty: 1 RF: 0 tizanidine 2 mg tablet 2 mg PO BID PRN (Reason: muscle spasticity) Qty: 60 RF: 0 nitroglycerin 0.4 mg tablet, sublingual 0.4 mg SUBLINGUAL Q5M PRN (Reason: chest pain) Qty: 50 RF: 2 guaifenesin [Mucinex] 600 mg tablet extended release 12hr See Rx Instructions .ROUTE .COMPLEX Qty: 60 RF: 5 ergocalciferol (vitamin D2) [Vitamin D2] 1,250 mcg (50,000 unit) capsule See Rx Instructions .ROUTE .COMPLEX Qty: 4 RF: 5 ferrous sulfate 325 mg (65 mg iron) tablet See Rx Instructions .ROUTE .COMPLEX Qty: 60 RF: 5 calcium carbonate-vitamin D3 [Oyster Shell Calcium-Vit D3] 500 mg(1,250mg) - 200 unit tablet See Rx Instructions .ROUTE .COMPLEX Qty: 30 RF: 5 magnesium oxide 400 mg (241.3 mg magnesium) tablet See Rx Instructions .ROUTE .COMPLEX Qty: 90 RF: 2 trazodone 50 mg tablet See Rx Instructions .ROUTE .COMPLEX Qty: 30 RF: 2 meloxicam 7.5 mg tablet See Rx Instructions .ROUTE .COMPLEX Qty: 30 RF: 2 albuterol sulfate 2.5 mg /3 mL (0.083 %) Solution For Nebulization 2.5 mg INHALATION Q6H PRN (Reason: Shortness Of Breath) RF: 0 atorvastatin 10 mg Tablet 10 mg PO DAILY RF: 0 isosorbide mononitrate 30 mg Tablet Extended Release 24 Hr 30 mg PO DAILY RF: 0 alendronate 70 mg Tablet 70 mg PO Q7D RF: 0 losartan-hydrochlorothiazide 100-25 mg Tablet 1 tab PO DAILY RF: 0 aspirin 81 mg Tablet,Chewable 81 mg PO DAILY RF: 0 montelukast 10 mg Tablet 10 mg PO DAILY RF: 0 furosemide 20 mg Tablet 10 mg PO BID RF: 0 albuterol sulfate 90 mcg/actuation Hfa Aerosol Inhaler 2 inh INHALATION Q4H PRN (Reason: Shortness Of Breath) RF: 0 Daliresp 500 mcg Tablet 500 mcg PO DAILY RF: 0 Trelegy Ellipta 100-62.5-25 mcg Blister With Device 1 inh INHALATION Q24H RF: 0 duloxetine 30 mg capsule,delayed release(DR/EC) 30 mg PO BID RF: 0 Discharge Orders: Discharge Order (Routine); Ordered 11/27/20 Ordered By: Demetrius Henderson Referrals: Baltazar Esqueda MD [Physician] - 11/30/20 9:45 am Trish Linares FNP [Nurse Practitioner] - 12/04/20 10:00 am Discharge Diet: Regular Discharge Activity: Resume usual activity Patient Instructions: Azithromycin (By mouth), Pancreatitis (GEN) Discharge Attestations Time Spent in Discharge Care*: less than 30 min Specific Discharge Activities: educating patient, educating and/or supporting family/caregiver, discussing with pcp/other providers, discussing with case m anagers/social workers/dc planners, documenting/other paperwork and evaluating patient/reviewing data Status at Discharge: Cognitive status at discharge: cognitively intact , Behavioral status at discharge: cooperative , Functional status at discharge: independent ambulation Overall status at discharge: patient is back to baseline Quality Metrics Clinical Quality Measures During this hospital stay, did patient experience: None Coding Level of Care Code Acute Chg FW DC note Diagnoses Acute pancreatitis K85.90 Chronic hypercapnic respiratory failure J96.12 Leukocytosis D72.829 Elevated transaminase level R74.01 Vitamin D deficiency E55.9 Essential (primary) hypertension I10 CAD (coronary artery disease), [place] coronary artery I25.10 COPD exacerbation J44.1 Morbid obesity E66.01
--- NOTE | 2020-11-27 12:29 | PC.NURSE ---
discharge instructions given to patient and patient verbalized understanding of instructions.
--- NOTE | 2020-11-27 12:33 | PC.NURSE ---
Called patient's daughter Dinorah [phone] and notified her that patient is discharged. She said she will be her shortly
--- NOTE | 2020-11-27 14:17 | PC.NURSE ---
patient's daughter arrived and patient was taken to private vehicle via wheelchair by staff and assisted into vehicle.
== END 2020-11-27 14:24 | disposition home or self-care (01) | DRG 439 ==
LOC: ER 20:11 → MEDSURG 22:01
PROVIDERS: Admitting Provider Internal Medicine; Emergency Provider Nurse Practitioner Family; Visit Provider Internal Medicine
DX: K85.10 Biliary acute pancreatitis without necrosis or infection (principal); J96.12 Chronic respiratory failure with hypercapnia; Z99.81 Dependence on supplemental oxygen; J43.1 Panlobular emphysema; D35.02 Benign neoplasm of left adrenal gland; K80.20 Calculus of gallbladder without cholecystitis without obstruction; K29.80 Duodenitis without bleeding; R16.0 Hepatomegaly, not elsewhere classified; K76.0 Fatty (change of) liver, not elsewhere classified; N28.1 Cyst of kidney, acquired; M17.0 Bilateral primary osteoarthritis of knee; I25.10 Atherosclerotic heart disease of native coronary artery without angina pectoris; I10 Essential (primary) hypertension; M47.896 Other spondylosis, lumbar region; M41.20 Other idiopathic scoliosis, site unspecified; M47.817 Spondylosis without myelopathy or radiculopathy, lumbosacral region; E78.2 Mixed hyperlipidemia; G47.33 Obstructive sleep apnea (adult) (pediatric); H90.3 Sensorineural hearing loss, bilateral; Z79.82 Long term (current) use of aspirin; Z79.51 Long term (current) use of inhaled steroids; E66.01 Morbid (severe) obesity due to excess calories; E55.9 Vitamin D deficiency, unspecified; F17.210 Nicotine dependence, cigarettes, uncomplicated; G57.10 Meralgia paresthetica, unspecified lower limb
CPT/HCPCS: 36415; 36600; 71045; 74176; 74177; 80053; 82803; 83690; 84478; 84484; 85007; 85025; 85027; 94640; 96361; 96372; 96374; 96375; 96376; 99285; C9113; J1170; J1650; J2270; J7030; J7040; Q9967

== ENCOUNTER → 2020-12-07 15:02 | Outpatient (BNVA) | payer MEDICARE, MEDICAID, SELFPAY | PROVIDERS: Visit Provider Surgery | DX: Z20.822 Contact with and (suspected) exposure to COVID-19 (principal); K80.20 Calculus of gallbladder without cholecystitis without obstruction | CPT/HCPCS: 87635 ==

== ENCOUNTER 2020-12-12 08:51 | Day surgery (SDC) | payer MEDICARE, MEDICAID, SELFPAY ==
[2020-12-11 13:44] VITALS: BMI 57.6
--- NOTE | 2020-12-11 14:34 | P.ANESASSM_ITS ---
Pre-Anesthetic Assessment Pre-Anesthetic Assessment: Height/Weight: Height 1.52 m Weight 133.81 kg Preop Diagnosis: Cholelithiasis Proposed Procedure: Operation Date: 12/12/20 12:15 Proposed Procedures p Laparoscopic possible open Cholecystectomy 96303 k80.20(Not Applicable) - Baltazar Esqueda MD Was Beta Mayra taken within 24 hours: Yes Was Clonidine taken within 24 hours: N/A Social: Social History: Tobacco and No alcohol Exam: Pre-Anes Outpt Exam: alert, oriented x 3 and regular rate & rhythm Additional Exam Findings (including area of procedure): BBS decreased Airway: Submandibular: WNL Cervical ROM: WNL MP: 2 Additional comments: Poor dentition Pulmonary: Pulmonary: COPD Comments: Home O2 3L CV/HEM: CV/HEM: CAD and HTN Metabolic: Metabolic: DM and Morbid obesity Anesthetic Plan: ASA status: 4 Anesthesia: General Risk of > 500 ml blood loss (7ml/kg in children): No PFSH Anesthesia PFSH: Medical History (Updated 12/05/20 @ 19:21 by Onofre Mendiola MD) Active asthma Acute pancreatitis Advanced COPD Bilateral primary osteoarthritis of knee CAD (coronary artery disease), [place] coronary artery Chronic hypercapnic respiratory failure Collapsed vertebra, not elsewhere classified, thoracic region, sequela of fracture DDD (degenerative disc disease) Essential (primary) hypertension Facet syndrome, lumbar Idiopathic scoliosis and kyphoscoliosis Iron deficiency Lumbosacral spondylosis without myelopathy Meralgia paresthetica, unspecified lower limb Mixed hyperlipidemia Morbid obesity CASSIE (obstructive sleep apnea) Sensorineural hearing loss, bilateral Spondylolisthesis Tinnitus, bilateral Vitamin D deficiency Surgical History History of hysterectomy Hx of section Family History Other CAD (coronary artery disease) Cancer Diabetes Hypertension Social History Smoking and tobacco status: former smoker Quit status (tobacco): has quit using tobacco Year quit tobacco: 2008 Former quit date comment: 1-2 PPD x 20 yrs Second hand smoke exposure: No Alcohol intake: never Lives independently: Yes Household members: family Marital status: / Current occupational status: disabled History of recent travel: No Current gender identity: Female Special sita needs: No Agree to transfusion: Yes Data Anesthesia Cardiac Studies: No Data to Display
[2020-12-12] VITALS (11 sets, daily range): BP systolic 130–208; BP diastolic 75–154; PULSE 91–101; RESP 16–27; TEMP 36.6; O2SAT 90–100
--- NOTE | 2020-12-12 09:37 | W.PM.OPSUD ---
Surgery/Procedure H&P Update DATE OF PROCEDURE: December 12, 2020 DATE H&P PERFORMED: 11/30/20 H&P UPDATE INFORMATION: I have reviewed H&P completed within last 30 days, I have examined patient prior to procedure and No changes to prior documentation PREOP DIAGNOSIS: Cholelithiasis PLANNED PROCEDURE: Operation Date: 12/12/20 11:00 Proposed Procedures p Laparoscopic possible open Cholecystectomy 29720 k80.20(Not Applicable) - Baltazar Esqueda MD
--- NOTE | 2020-12-12 09:52 | P.ANESUD_ITS ---
Pre-Anesthetic Update Pre-Anesthetic Assessment: Date of Surgery/Procedure: 12/12/20 Preop Cristina gnosis: Cholelithiasis Proposed Procedure: Operation Date: 12/12/20 11:00 Proposed Procedures p Laparoscopic possible open Cholecystectomy 80647 k80.20(Not Applicable) - Baltazar Esqueda MD Any changes to Pre-Anesthetic Assessment?: No Vitals: Temperature 97.9 F 12/12/20 09:29 Temperature Source Temporal Artery S can 12/12/20 09:29 Pulse Rate 92 12/12/20 09:29 Respiratory Rate 18 12/12/20 09:29 Blood Pressure 161/75 12/12/20 09:29 Blood Pressure Kelli n 103 12/12/20 09:29 Pulse Oximetry 97 12/12/20 09:29 Oxygen Delivery Me thod 12/12/20 09:29 Oxygen Flow Rate 3 12/12/20 09:29 Exam: Pre-Anes Outpt Exam: alert, oriented x 3 and regular rate & rhythm Cardiac Studies: No Data to Display
[2020-12-12] MEDS: sodium chloride 0.9% 1,000 ML 30 ML IV (10:19)
--- NOTE | 2020-12-12 11:03 | W.PM.OPSUD ---
Surgery/Procedure H&P Update DATE OF PROCEDURE: December 12, 2020 DATE H&P PERFORMED: 11/30/20 H&P UPDATE INFORMATION: I have reviewed H&P completed within last 30 days, I have examined patient prior to procedure and No changes to prior documentation PREOP DIAGNOSIS: Cholelithiasis PLANNED PROCEDURE: Operation Date: 12/12/20 11:00 Proposed Procedures p Laparoscopic possible open Cholecystectomy 57857 k80.20(Not Applicable) - Baltazar Esqueda MD
[2020-12-12] MEDS: clindamycin 600 MG/50 ML PREMIX 150 MG IV (11:13)
[2020-12-12] MEDS: HYDROmorphone 1 mg/mL INJ 1 mL 0.5 MG IVP (12:38)
--- NOTE | 2020-12-12 12:38 | PM.OP ---
Operative Report Date of procedure: December 12, 2020 Pre-op Diagnosis: 1. cholelithiasis 2. History of acute pancreatitis Post-op diagnosis: same Procedure Done: Laparoscopic cholecystectomy Specimens removed/disposition: Gallbladder Surgeon: Baltazar Esqueda Anesthesia: General Condition: stable Disposition: PACU Procedure: The patient was taken to the operating room and was intubated under general anesthesia. After the antibiotic had been administered, the abdomen was prepped and draped in a sterile manner. Using a #15 blade, a 1 centimeter infraumbilical curvilinear incision was made and using an open Ev technique the peritoneal cavity was entered. A 10 millimeter port was placed and 15 millimeters of pneumoperitoneum was created. A 10 millimeter, 30 degrees scope was then introduced. Three 5 millimeter ports were placed in the epigastric, midclavicular and the anterior axillary line two fingerbreadths below the costal margin on the right side under the direct visualization. Ratcheted forceps were introduced into the lateral most port and was used to retract the fundus of the gallbladder cephalad and using forceps the infundibulum of the gallbladder was retracted laterally. Using L-hook cautery the peritoneum overlying the Calot's triangle was opened medially and laterally until the cystic duct and the cystic artery were skeletonized. Dissection was carried along the body of the gallbladder and after ensuring critical view of safety, 4 clips applied on the cystic duct and 3 clips applied on the cystic artery and cut leaving, 3 clips on the remaining portion of the duct and 2 clips on the remaining portion of the artery. The rest of the gallbladder was dissected off the liver using L-hook cautery. There was a tear in the fundus of the gallbladder with spillage of bile which was irrigated and suctioned out. There was no bleeding or bile leaking noted from the gallbladder fossa and the clips appeared to be in place. An EndoCatch bag was introduced to remove the gallbladder. All the ports were removed under direct visualization and there was no bleeding noted from the port sites. The fascia of the umbilicus was closed using [id number] 0 Vicryl sutures and the subcutaneous tissue was approximated using 3-0 Vicryl sutures. The skin at all four ports were closed using 4-0 Monocryl and Dermabond. A total of 10 millimeters of 0.5% Marcaine was infiltrated around the port sites. The patient was stable throughout the procedure.
--- NOTE | 2020-12-12 12:53 | SUR.PHASEI ---
1227 PT TO PACU AWAKE BUT DISORIENTED TRYING TO SIT UP WITH AUDIBLE EXPIRATORY WHEEZES, GOOD RESP EFFORT, SATS 90% , PT USES 3LNC AT HOME ALL THE TIME. 1232 ALBUTEROL NEB PLACED TO PT WITH GOOD RESP EFFORT , O2 SATS MAINTAINED PT ALSO CRYING OUT WITH PAIN DR ALVARADO AT BEDSIDE AND GAVE VERBAL ORDERS TO USE DILAUDID FOR PAIN IN PACU PHASE 1. 1244 TX DONE, PT UP IN BED PLACED ON 3LNC, PT TAKING ICE CHIPS , VSS PT AWAKES TO VOICE , FLAKO OUT IF SHE MOVES BUT OTHERWISE CALM VSS.
--- NOTE | 2020-12-12 12:57 | SUR.PHASEI ---
PT LUNGS DIMINISHED IN BILAT LOWER LOBES, SCATTERED RHONCHI AND EXP WHEEZE TO LT LOWER LOBE, PT AWAKE ALERT TALKATIVE TAKING ICE CHIPS SATS 93% VSS.
[2020-12-12] MEDS: HYDROcodone-acetaminophen 5-325 mg Tablet 1 TAB PO (13:10)
--- NOTE | 2020-12-12 14:34 | ANE.PACU2 ---
Inpatient post-anesthesia follow up: Airway intact: Yes Vital signs: Temperature 98 F Pulse Rate 94 Respiratory Rate 16 Blood Pressure 130/90 Pulse Oximetry 95 Oxygen Delivery Me thod Nasal Cannula Oxygen Flow Rate 3.0 Fraction of Inspir ed Oxygen Hydration adequate: Yes Nausea and vomiting: No Pain level: 2 Mental status: Baseline
== END 2020-12-12 14:34 | disposition home or self-care (01) ==
PROVIDERS: Visit Provider Surgery
PROC: 0FT44ZZ Resection of Gallbladder, Percutaneous Endoscopic Approach (ICD-10-PCS; CPT 47562; principal; 2020-12-12 11:00)
DX: K80.10 Calculus of gallbladder with chronic cholecystitis without obstruction (principal); J44.9 Chronic obstructive pulmonary disease, unspecified; Z99.81 Dependence on supplemental oxygen; I25.10 Atherosclerotic heart disease of native coronary artery without angina pectoris; I10 Essential (primary) hypertension; E11.9 Type 2 diabetes mellitus without complications; E66.01 Morbid (severe) obesity due to excess calories; Z68.43 Body mass index [BMI] 50.0-59.9, adult; G47.33 Obstructive sleep apnea (adult) (pediatric); Z82.49 Family history of ischemic heart disease and other diseases of the circulatory system; Z83.3 Family history of diabetes mellitus; Z87.891 Personal history of nicotine dependence
CPT/HCPCS: 47562; 88304; J1100; J1170; J2250; J2370; J2405; J2704; J3010; J3490; J7030; J7611

== ENCOUNTER → 2020-12-19 15:17 | Outpatient (BNVA) | payer MEDICARE, MEDICAID, SELFPAY | PROVIDERS: Visit Provider Nurse Practitioner Family | DX: N39.0 Urinary tract infection, site not specified (principal) | CPT/HCPCS: 80053; 81000; 85025; 87086 ==

== ENCOUNTER 2020-12-20 14:18 | Emergency (ER) | payer MEDICARE, MEDICAID, SELFPAY ==
[2020-12-20] VITALS (11 sets, daily range): BP systolic 87–121; BP diastolic 51–72; PULSE 70–116; RESP 16–23; TEMP 36.5; O2SAT 95–99
--- NOTE | 2020-12-20 15:06 | ECG_ITS ---
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 Measurements Intervals [place] Rate: 99 P: 74 MI: 132 QRS: 50 QRSD: 95 T: 86 QT: 351 QTc: 452 Interpretive Statements SINUS RHYTHM WITH SINUS ARRHYTHMIA POSSIBLE RIGHT VENTRICULAR CONDUCTION DELAY [RSR (QR) IN V1/V2] Compared to ECG 10/10/2019 18:04:39 No significant changes Electronically Signed On 12-21-2020 7:17:28 CDT by Terri Blanton M.D. [id number]
--- NOTE | 2020-12-20 15:08 | CTR_ITS ---
PROCEDURE INFORMATION: Exam: CT Abdomen And Pelvis With Contrast Exam date and time: 12/20/2020 3:59 PM Age: 65 years old Clinical indication: Abdominal pain; Prior surgery; Surgery date: <1 month; Surgery type: 9 days post cholecystectomy; Additional info: Abdominal pain. 9 days post cholecystectomy. TECHNIQUE: Imaging protocol: Computed tomography of the abdomen and pelvis with contrast. Radiation optimization: All CT scans at this facility use at least one of these dose optimization techniques: automated exposure control; mA and/or kV adjustment per patient size (includes targeted exams where dose is matched to clinical indication); or iterative reconstruction. Contrast material: OMNI 350; Contrast volume: 95 ml; Contrast route: INTRAVENOUS (IV); COMPARISON: CT abdomen pelvis wo con [id number] 11/26/2020 9:11 PM RADIATION DOSE METRICS: Total DLP (mGy-cm): 2240.88 FINDINGS: Heart: Normal heart size. Coronary atherosclerotic calcifications seen. No pericardial effusion. Liver: Normal. No mass. Gallbladder and bile ducts: The gallbladder has been surgically removed. Pancreas: Normal. No ductal dilation. Spleen: Normal. No splenomegaly. Adrenal glands: There is bilateral adrenal thickening, likely representing hyperplasia. Kidneys and ureters: Small bilateral renal cysts noted. The kidneys are otherwise unremarkable. Stomach and bowel: Unremarkable. No obstruction. No mucosal thickening. Appendix: The appendix is not seen and may be absent. Intraperitoneal space: There is a small amount of ascites. No free air. Vasculature: Unremarkable. Lymph nodes: Unremarkable. No enlarged lymph nodes. Urinary bladder: Unremarkable as visualized. Reproductive: The uterus is surgically absent. Bones/joints: Degenerative changes of the spine seen. Unchanged mild anterior wedge compression fracture deformity of T12. Soft tissues: In the deep subcutaneous tissues of the left anterior abdominal wall, superficial to the left rectus sheath, there is a flat fluid collection measuring approximately 11.1 x 2.5 x 10.5 cm. In the adjacent supraumbilical region, there is a 2nd subcutaneous collection measuring approximately 5.4 x 2.9 x 5.7 cm. There is extensive amount of fluid in the soft tissues surrounding this collections, extending over the left lateral abdominal wall and into the left lower lateral chest wall, including the superficial muscle planes. CT/CT abdomen pelvis w con* [id number] IMPRESSION: 1. New small amount of ascites. 2. Deep subcutaneous fluid collections anterior to the left rectus sheath and in the supraumbilical region, with extensive amount of fluid tracking along the soft tissues of the left lateral abdominal and lower chest wall. Hematoma and infectious process should be considered. COMMENTS: Consistent with the [employer]'s Incidental Findings Committee white paper (J Am Eliel Radiol 2018): Any incidental renal lesion less than 1 cm or classified as too small to characterize, or any incidental cystic renal lesion characterized as simple-appearing, is likely benign. No follow-up imaging is recommended for these lesions per consensus recommendations based on imaging criteria. Radiation Dose CTDIVOL = (mGy): DLP = 2240.88 (mGy-cm)
[2020-12-20] MEDS: ipratropium-albuterol 3 mL Neb INHALATION ×2 (15:31→20:23)
[2020-12-20 15:44] LABS: ABG PH Result 7.46 (7.35-7.45); Alveolar-Arterial Oxygen Gradi 9.9 mmHg (5-10); Arterial Blood Gas Hematocrit 34.4 % (37-47); Base Excess ABG 11.7 mmol/L (-2.0-2.0); Blood Gas Allen Test Pos; Blood Gas Operator Identificat CAK; Blood Gas Sample Site Radial, left; Blood Gas Sample Type Arterial; HCO3 ABG 37.2 mmol/L (22-26); HGB O2 Sat 96.9 % (95-100); Ionized Calcium Level - ABG 1.2 mmol/L (1.1-1.4); Methemoglobin < 0.0 % (0.4-1.5); Oxygen Device NC; Oxygen Saturation ABG 97.8; PO2 ABG 87.8 mmHg (80.0-100.0); Potassium Level - ABG 3.6 mmol/L (3.5-5.0); Total Hemoglobin 11.2 g/dL (12-16)
--- NOTE | 2020-12-20 16:04 | PC.NURSE ---
PLEASE DISREGARD DC CHARTING AT THIS TIME. PERFORMED ON THE WRONG PATIENT
[2020-12-20 16:10] LABS: Basophils # 0.1 10^3/uL (0.0-0.1); Basophils % 0.5 %; Eosinophils # 1.2 10^3/uL (0.0-0.8); Hematocrit 35.3 % (37.0-47.0); Hemoglobin 11.1 g/dL (11.5-15.3); Lymphocytes # 0.7 10^3/uL (0.8-4.8); Lymphocytes % 3.4 %; Mean Corpuscular HGB Conc 31.4 g/dL (30.0-36.0); Mean Corpuscular Hemoglobin 27.1 pg (28.0-34.0); Mean Corpuscular Volume 86.3 fL (81-99); Mean Platelet Volume 8.7 fL (7.4-10.4); Monocytes # 1.1 10^3/uL (0.2-0.9); Monocytes % 5.5 %; Neutrophils # 15.76 10^3/uL (1.8-7.7); Neutrophils % 80.3 %; Nucleated Red Blood Cells % 0 %; Platelet Count 441 10^3/cmm (130-400); Red Blood Count 4.09 10^6/uL (4.1-5.3); Red Cell Distribution Width 14.6 % (12.1-15.1); White Blood Count 19.6 10^3/uL (4.0-10.0)
[2020-12-20] MEDS: iohexol 350 mg/mL 100 mL Btl IV (16:12)
[2020-12-20 16:18] LABS: Troponin(5th) Baseline 15 ng/L (0-10)
[2020-12-20 16:25] LABS: Alanine Aminotransferase 19 U/L (0-33); Albumin Level 2.7 g/dL (3.5-5.2); Alkaline Phosphatase 219 IU/L (35-105); Anion Gap 10.7 (5-19); Aspartate Amino Transferase 21 U/L (0-32); Blood Urea Nitrogen 27 mg/dL (8-23); Calcium 9.1 mg/dL (8.5-10.5); Carbon Dioxide 35 mmol/L (22-29); Chloride 77 mmol/L (98-107); Globulin 3.9 g/dL (1.3-4.6); Glomerular Filtration Rate 37.6 mL/min (90-130); Glucose 148 mg/dL (65-115); Lipase 12 U/L (13-60); NT Pro B Type Natriuretic Pept 173 pg/mL (0-125); Osmolality Calculated 256 mOsm/kg (285-295); Potassium 3.7 mmol/L (3.5-5.1); Total Bilirubin 2.3 mg/dL (0.15-1.2); Total Protein 6.6 g/dL (6.6-8.7)
[2020-12-20 16:33] LABS: Sodium 119 mmol/L (136-145)
[2020-12-20] MEDS: HYDROmorphone 1 mg/mL INJ 1 mL 0.5 MG IVP (17:01)
[2020-12-20] MEDS: cefepime 2,000 MG in sodium chloride 0.9% (plus) 50 ML 100 MG IV (17:02)
--- NOTE | 2020-12-20 17:07 | PC.PHAR ---
pt unable to verify medications-pt states she has a nurse but doesnt know who she is -meds entered are meds that show up on ext med history-asked pts pharmacy [facility] if they knew who pts home health nurse was they states they were unsure
[2020-12-20 17:11] LABS: Ketones Urine 1+ (Negative); Specific Gravity, Urine 1.015 (1.005-1.030); Urine Appearance Clear (CLEAR); Urine Color Dark Yellow (Yellow); pH Urine 5 (5-7)
[2020-12-20 17:12] LABS: Bacteria Urine 1+ /hpf; Bilirubin Urine 2+ (Negative); Blood Urine Neg (Negative); Glucose Urine UA Norm (Normal); Hyaline Casts Urine 0-4 /lpf; Leukocyte Esterase Urine Negative (Negative); Mucus Urine 1+ /hpf; Nitrate Urine Negative (Negative); Protein Urine Neg (Negative); RBC Urine 0-4 /hpf (0-2); Squamous Epithelial Cell Urine 0-4 /hpf (0-5); Urobilinogen Urine 4 mg/dL (Negative); WBC Urine 0-4 /hpf (0-5)
--- NOTE | 2020-12-20 17:27 | NMR_ITS ---
PROCEDURE INFORMATION: Exam: NM Hepatobiliary Including Gallbladder When Present Exam date and time: 12/20/2020 6:12 PM Age: 65 years old Clinical indication: Ruq pain; Prior surgery; Surgery date: 3-7 days post-operative; Surgery type: Cholecystectomy; Additional info: Hida scan 1 week postop TECHNIQUE: Imaging protocol: Hepatobiliary system imaging including the gallbladder when present. Projections: Frontal abdomen. Total images: 1 Radiopharmaceutical: 8.1 mCI Tc-99m Mebrofenin (Choletec, Bromotriethyl-TINA), IV. Time of imaging post radiopharmaceutical administration: 60 minutes following radiopharmaceutical. COMPARISON: CT abdomen pelvis w con* [id number] 12/20/2020 4:23 PM FINDINGS: Liver: Normal hepatic tracer activity. Gallbladder: Small volume focal tracer activity in the gallbladder fossa corresponding to the CT findings of 12/20/2020 at 1628 hours. Potential exists for a small bile leak and small biloma. Bile ducts: Tracer activity identified in the common bile duct. Stomach and bowel: Normal tracer activity in the small-bowel. NM/NM hepatobiliary wo phar [id number] IMPRESSION: Small volume focal tracer activity in the gallbladder fossa corresponding to the CT findings of 12/20/2020 at 1628 hours. Potential exists for a small bile leak and small biloma.
[2020-12-20] MEDS: vancomycin 1,500 MG/300 ML PIGGYBACK 200 MG IV (18:01)
--- NOTE | 2020-12-20 20:16 | CTR_ITS ---
PROCEDURE INFORMATION: Exam: CT Head Without Contrast Exam date and time: 12/20/2020 8:42 PM Age: 65 years old Clinical indication: Altered mental status/memory loss; Patient HX: Gb removed x 9 days; Additional info: Hyponatremia TECHNIQUE: Imaging protocol: Computed tomography of the head without contrast. Total images: 201 Radiation optimization: All CT scans at this facility use at least one of these dose optimization techniques: automated exposure control; mA and/or kV adjustment per patient size (includes targeted exams where dose is matched to clinical indication); or iterative reconstruction. COMPARISON: No relevant prior studies available. RADIATION DOSE METRICS: Total DLP (mGy-cm): 1339.96 FINDINGS: Brain: No evidence of active or acute intracranial pathologic process, hemorrhage, or trauma. No visible evidence of diffuse cerebral edema or generalized demyelination. No mass effect. No midline shift. Empty sella turcica. Cerebral ventricles: No ventriculomegaly. Bones/joints: Unremarkable. No acute fracture. Paranasal sinuses: Visualized sinuses are unremarkable. No fluid levels. Mastoid air cells: Visualized mastoid air cells are well aerated. Soft tissues: Unremarkable. Other findings: Motion artifact. CT/CT head wo con* [id number] IMPRESSION: 1. No evidence of active or acute intracranial pathologic process, hemorrhage, or trauma. 2. Empty sella turcica. Radiation Dose CTDIVOL = (mGy): DLP = 1339.96 (mGy-cm)
--- NOTE | 2020-12-20 20:31 | PM.CONSULT ---
History of Present Illness History of Present Illness Michelle Walton is a 65 year old female Meds/Allergies Home Medications and Allergies Home Medications Medication Instructions Recorded Confirmed Last Taken Type nitroglycerin 0.4 mg sublingual 0.4 mg SUBLINGUAL Q5M PRN #50 tab 04/10/20 12/20/20 Unknown Rx tablet metoprolol succinate 100 mg 100 mg PO DAILY #90 tab 05/07/20 12/20/20 12/12/20 Rx tablet,extended release 24 hr nebulizer, tubing, mask, kit #1 ea 09/18/20 12/20/20 Unknown Rx Daliresp 500 mcg PO DAILY 11/24/20 12/20/20 12/11/20 History Trelegy Ellipta 1 inh INHALATION Q24H 11/24/20 12/20/20 Unknown History albuterol sulfate 2.5 mg INHALATION Q6H PRN 11/24/20 12/20/20 12/12/20 History alendronate 70 mg PO Q7D 11/24/20 12/20/20 12/11/20 History aspirin 81 mg PO DAILY 11/24/20 12/20/20 12/10/20 History atorvastatin 10 mg PO DAILY 11/24/20 12/20/20 12/11/20 History duloxetine 30 mg PO BID 11/24/20 12/20/20 12/11/20 History furosemide 10 mg PO BID 11/24/20 12/20/20 12/11/20 History isosorbide mononitrate 30 mg PO DAILY 11/24/20 12/20/20 12/12/20 History losartan-hydrochlorothiazide 1 tab PO DAILY 11/24/20 12/20/20 12/12/20 History montelukast [Singulair] 10 mg PO DAILY 11/24/20 12/20/20 12/11/20 History triamcinolone acetonide 0.1 % 1 applic TOPICAL BID #80 g 12/04/20 12/20/20 12/11/20 Rx topical cream albuterol sulfate 90 mcg/actuation 2 inh INHALATION Q4H PRN #8.5 g 12/06/20 12/20/20 12/12/20 Rx aerosol inhaler docusate sodium [Colace] 100 mg PO BID #30 cap 12/12/20 12/20/20 Unknown Rx hydrocodone-acetaminophen 1 tab PO Q6H PRN #20 tab 12/12/20 12/20/20 Unknown Rx ondansetron HCl [Zofran] 4 mg PO Q6H PRN #20 tab 12/12/20 12/20/20 Unknown Rx sulfamethoxazole 800 1 tab PO BID 10 Days #20 tab 12/19/20 12/20/20 Unknown Rx mg-trimethoprim 160 mg tablet Mucinex 1,200 mg PO BID PRN 12/20/20 12/20/20 Unknown History Oyster Shell Calcium-Vit D3 1 tab PO DAILY 12/20/20 12/20/20 Unknown History cholecalciferol (vitamin D3) 5,000 unit PO DAILY 12/20/20 12/20/20 Unknown History ergocalciferol (vitamin D2) 50,000 unit PO Q7D 12/20/20 12/20/20 Unknown History [Vitamin D2] ferrous sulfate 325 mg PO BID 12/20/20 12/20/20 Unknown History magnesium oxide 400 mg PO TID 12/20/20 12/20/20 Unknown History meloxicam 7.5 mg PO DAILY 12/20/20 12/20/20 Unknown History trazodone 50 mg PO BEDTIME PRN 12/20/20 12/20/20 Unknown History Allergies Allergy/AdvReac Type Severity Reaction Status Date / Time ciprofloxacin [From Cipro] Allergy Severe ALGY-Difficulty Verified 12/20/20 14:33 Breathing Penicillins Allergy Intermediate ALGY-Hives Verified 12/20/20 14:33 raisins Allergy ALGY-Rash Uncoded 12/20/20 14:33 PFSH Acute PFSH: Medical History Active asthma Acute pancreatitis Advanced COPD Bilateral primary osteoarthritis of knee CAD (coronary artery disease), [place] coronary artery Chronic hypercapnic respiratory failure Collapsed vertebra, not elsewhere classified, thoracic region, sequela of fracture DDD (degenerative disc disease) Essential (primary) hypertension Facet syndrome, lumbar Idiopathic scoliosis and kyphoscoliosis Iron deficiency Lumbosacral spondylosis without myelopathy Meralgia paresthetica, unspecified lower limb Mixed hyperlipidemia CASSIE (obstructive sleep apnea) Sensorineural hearing loss, bilateral Spondylolisthesis Tinnitus, bilateral Vitamin D deficiency Surgical History History of hysterectomy Hx of section Status post laparoscopic cholecystectomy (12/12/20) Family History Other CAD (coronary artery disease) Cancer Diabetes Hypertension Social History Smoking and tobacco status: former smoker Quit status (tobacco): has quit using tobacco Year quit tobacco: 2008 Former quit date comment: 1-2 PPD x 20 yrs Second hand smoke exposure: No Alcohol intake: never Lives independently: Yes Household members: family Marital status: / Current occupational status: disabled History of recent travel: No Current gender identity: Female Special sita needs: No Agree to transfusion: Yes Vitals/I&O/Wt Last Vital Signs Temp 97.7 F 12/20/20 14:19 Pulse 91 12/20/20 20:27 Resp 21 H 12/20/20 20:27 BP 95/72 12/20/20 19:50 Pulse Ox 99 12/20/20 20:27 12/20/20 12/20/20 12/20/20 06:59 14:59 22:59 Intake Total 350 / 350 Balance 350 / 350 Physical Exam Urinary Catheter Management^: Redman: Cath Placed During This Visit: yes Reason for Continuing Indwelling Catheter: Accurate Measurement of Urinary Output in Critically Ill Patients Urinary Catheter Date of Insertion: 12/20/20 Urinary Catheter Time of Insertion: 17:31 Data Micro: Micro: Microbiology 12/20/20 17:09 Blood Culture - Pr eliminary Blood SPECIMEN [facility]AIDE[facility] 12/20/20 16:54 Blood Culture - Pr eliminary Blood SPECIMEN [facility] DM Coding Level of Care Code Acute Bacteriologist Dairy for Albert Banks
--- NOTE | 2020-12-20 21:40 | W.ED.ABDPA2 ---
HPI - Abdominal Pain General: Chief Complaint: Abdominal Pain Stated Complaint: ABDOMINAL PAIN Time Seen by Provider: 12/20/20 14:24 History of Present Illness: HPI narrative: The patient is a 65-year-old female with chronic respiratory failure on 3 L oxygen baseline comes to the ER complaining of abdominal pain. She had a laparoscopic cholecystectomy on the of this month and has been having increasing pain for the past couple days. She is also been taking hydrocodone for her pain. She chronically has difficulty speaking. She chronically has inspiratory and expiratory wheezes as well. She points to her lower abdomen when asked about pain and she has bruising and erythema to the lower half of her abdomen Associated Symptoms: Denies chills, GI cramping, diarrhea and fever(s) Review of Systems General: Reports: 10 or more systems reviewed and unremarkable except in HPI and below Const: Reports: fatigue; Denies: fever(s) or chills Eyes: Denies: change in vision, blurry vision or eye redness ENMT: Denies: throat pain, swelling of lips/tongue, ear or mastoid pain or nasal congestion Card: Denies: chest pain, palpitations, irregular heart rhythm, edema, dyspnea on exertion or orthopnea Resp: Denies: dyspnea, productive cough or non-productive cough GI: Reports: abdominal pain; Denies: diarrhea or GI cramping : Denies: flank pain, difficulty voiding, urinary frequency or urinary urgency Musc: Denies: neck pain, back pain, extremity pain, joint pain, joint redness, limited range of motion or muscle weakness Skin/Breast: Denies: rash, pruritus, erythema, skin pain or skin tenderness Neuro: Denies: headache(s), numbness in extremities, weakness in extremities, sensory changes, difficulty walking, dizziness, confusion or Slurred speech present Psych: Denies: anxiety or depression Endo: Denies: polyuria All/Imm: Denies: urticaria, throat swelling or tongue swelling PFSH ED PFSH: Medical History Active asthma Acute pancreatitis Advanced COPD Bilateral primary osteoarthritis of knee CAD (coronary artery disease), [place] coronary artery Chronic hypercapnic respiratory failure Collapsed vertebra, not elsewhere classified, thoracic region, sequela of fracture DDD (degenerative disc disease) Essential (primary) hypertension Facet syndrome, lumbar Idiopathic scoliosis and kyphoscoliosis Iron deficiency Lumbosacral spondylosis without myelopathy Meralgia paresthetica, unspecified lower limb Mixed hyperlipidemia CASSIE (obstructive sleep apnea) Sensorineural hearing loss, bilateral Spondylolisthesis Tinnitus, bilateral Vitamin D deficiency Surgical History History of hysterectomy Hx of section Status post laparoscopic cholecystectomy (12/12/20) Family History Other CAD (coronary artery disease) Cancer Diabetes Hypertension Social History Smoking and tobacco status: former smoker Quit status (tobacco): has quit using tobacco Year quit tobacco: 2008 Former quit date comment: 1-2 PPD x 20 yrs Second hand smoke exposure: No Alcohol intake: never Lives independently: Yes Household members: family Marital status: / Current occupational status: disabled History of recent travel: No Current gender identity: Female Special sita needs: No Agree to transfusion: Yes Physical Exam Const: COMMON NORMALS: no acute distress, average body habitus, patient oriented x3, no limitations, alert and well nourished GENERAL APPEARANCE: cooperative, comfortable, well kempt and well developed NUTRITIONAL APPEARANCE: obese ORIENTATION/CONSCIOUSNESS: Yes awake, Yes oriented to person, Yes oriented to place and Yes oriented to time HENMT: COMMON NORMALS: normocephalic, external ears normal and Normal external nose present HEAD & SCALP: normal to inspection and normocephalic NOSE: Normal external nose present EXTERNAL EAR: Yes external ears normal MOUTH: Normal oral and palatal mucosa present THROAT: posterior oropharynx normal Eye: COMMON NORMALS: Equal, round and reactive pupils present and EOMs intact bilaterally GENERAL EYE: appearance normal, both eyes and all related structures PUPIL: Yes Equal, round and reactive pupils present Neck/C-Spine: COMMON NORMALS: full ROM, no lymphadenopathy, no meningeal signs and no JVD GENERAL: Yes normal visual inspection Lymph: LYMPHATIC: no lymphadenopathy noted Chest: COMMONS NORMALS: normal inspection of the chest and normal palpation of entire chest wall Resp: COMMON NORMALS: normal respiratory effort, No retractions, No use of accessory muscles, clear to auscultation bilaterally and percussion normal EFFORT & INSPECTION: Yes able to speak in complete sentences AUSCULTATION: clear to auscultation bilaterally PERCUSSION: percussion normal Cardio: COMMON NORMALS: no JVD, regular rate, regular rhythm, S1 normal heart sound present, S2 normal heart sound present and Peripheral pulses 2+ throughout RATE: regular rate RHYTHM: regular rhythm HEART SOUNDS: S1 normal heart sound present and S2 normal heart sound present PERIPHERAL PULSES: Peripheral pulses 2+ throughout GI: OTHER: Morbidly obese. From her bellybutton down she has bruising and erythema including to her pannus. Over the trochar sites she has erythema and tenderness there as well possible cellulitis or infection. She has the worst tenderness over the trocar sites in the lower half of her abdomen. Upper half of her abdomen has no tenderness. Belly soft. No rebound tenderness. : COMMON NORMALS: Yes no CVA tenderness BLADDER/KIDNEY EXAM: Yes no CVA tenderness Back/Pelvis: COMMON NORMALS: no CVA tenderness, thoracic and lumbar spine normal to inspection, no thoracic nor lumbar tenderness and thoraco-lumbar ROM normal Extremity: COMMON NORMALS: normal to inspection, full ROM, capillary refill normal, no joint enlargement and no pedal edema GENERAL: Yes normal exam except as noted Neuro: COMMON NORMALS: patient oriented x3, CN's II-XII intact bilaterally, moves all extremities, no focal motor deficits, no sensory deficits noted and gait normal SENSORIUM/ORIENTATION: Yes alert, Yes oriented to person, Yes oriented to place and Yes oriented to time MENINGEAL SIGNS: Yes no meningeal signs Psych: COMMON NORMALS: mental status grossly normal, Normal thought process present, cooperative, normal affect and speech normal APPEARANCE: Yes well kempt ATTITUDE: Yes calm SPEECH: Yes normal speech THOUGHT PROCESS: Normal thought process present Skin: COMMON NORMALS: no rashes or lesions noted GENERAL SKIN EXAM: no rashes or lesions noted Course Vital Signs: Vital signs: Vital Signs Temperature 97.7 F 12/20/20 14:19 Pulse Rate 89 12/20/20 22:11 Respiratory Rate 21 H 12/20/20 20:27 Blood Pressure 115/51 12/20/20 22:11 Pulse Oximetry 97 12/20/20 22:11 MDM - Abdominal Pain MDM Narrative: Medical decision making narrative: Patient came to the ER complaining of abdominal pain. She had a laparoscopic cholecystectomy on the and has bruising and possible cellulitis to the lower half of her abdomen. Her white count 19.6 and sodium 119 is of concern. She has bilateral inspiratory and expiratory wheezing and chronic respiratory failure she wears 3 L oxygen [id number] at home baseline. She was given 1 L IV fluids to help with her possible sepsis as well as vancomycin and cefepime. Careful not to give too much IV fluids as we cannot correct her hyponatremia too fast without severe consequences. She was given multiple duo nebs which did help her breathe a little bit better she says. Discussed with Dr. Esqueda who performed the surgery and recommended getting a HIDA scan which did show a bile leak. Discussed with Dr. Kauffman who accepts for transfer to [facility]. She was measured by the helicopter team who said she is to wired for their helicopter. All other helicopters have the same dimensions locally. Fixed wing would take longer to transfer. We'll transfer by EMS. Lab Data: Labs: Lab Results 12/20/20 12/20/20 12/20/20 Range/Units 15:33 15:45 15:45 WBC 19.6 H (4.0-10.0) 10^3/ uL RBC 4.09 L (4.1-5.3) 10^6/u L Hgb 11.1 L (11.5-15.3) g/dL Hct 35.3 L (37.0-47.0) % MCV 86.3 (81-99) fL MCH 27.1 L (28.0-34.0) pg MCHC 31.4 (30.0-36.0) g/dL RDW 14.6 (12.1-15.1) % Plt Count 441 H (130-400) 10^3/c mm MPV 8.7 (7.4-10.4) fL Neut % (Auto) 80.3 % Lymph % (Auto) 3.4 % [place] % (Auto) 5.5 % Eos % (Auto) 6.0 % Baso % (Auto) 0.5 % Neut # (Auto) 15.76 H (1.8-7.7) 10^3/u L Lymph # (Auto) 0.7 L (0.8-4.8) 10^3/u L [place] # (Auto) 1.1 H (0.2-0.9) 10^3/u L Eos # (Auto) 1.2 H (0.0-0.8) 10^3/u L Baso # (Auto) 0.1 (0.0-0.1) 10^3/u L Nucleated RBC % (a uto) 0 % Nucleated RBCs # 0.0 /100WBC Specimen Type Arterial Sample Site Radial, left ABG pH 7.46 H (7.35-7.45) ABG pCO2 52.0 H (35-45) mmHg ABG pO2 87.8 (80.0-100.0) mmH g ABG HCO3 37.2 H (22-26) mmol/L ABG O2 Saturation 97.8 ABG Base Excess 11.7 H (-2.0-2.0) mmol/ L Zachary Test Pos A-a O2 Gradient 9.9 (5-10) mmHg Hematocrit 34.4 L (37-47) % Hgb O2 Saturation 96.9 (95-100) % Carboxyhemoglobin 1.0 (0.4-20.1) %THgb Methemoglobin < 0.0 L (0.4-1.5) % Total Hemoglobin 11.2 L (12-16) g/dL Sodium 122.0 L 119 L* (131-143) mmol/L Potassium 3.6 3.7 (3.5-5.0) mmol/L Glucose 160.0 H 148 H (70-115) mg/dL Ionized Calcium 1.2 (1.1-1.4) mmol/L O2 Delivery Device Nc O2 Liters/Min 3.0 % FiO2 32.0 % Snipper ID Cak Chloride 77 L (98-107) mmol/L Carbon Dioxide 35 H (22-29) mmol/L Anion Gap 10.7 (5-19) BUN 27 H (8-23) mg/dL Creatinine 1.4 H (0.5-0.9) mg/dL GFR Calculation 37.6 L (90-130) mL/min Calculated Osmolal ity 256 L (285-295) mOsm/k g Calcium 9.1 (8.5-10.5) mg/dL Total Bilirubin 2.3 H (0.15-1.2) mg/dL AST 21 (0-32) U/L ALT 19 (0-33) U/L Alkaline Phosphata se 219 H (35-105) IU/L Troponin T Baselin e (0-10) ng/L NT-Pro-B Natriuret Pep 173 H (0-125) pg/mL Total Protein 6.6 (6.6-8.7) g/dL Albumin 2.7 L (3.5-5.2) g/dL Globulin 3.9 (1.3-4.6) g/dL Lipase 12 L (13-60) U/L Urine Color (Yellow) Urine Appearance (CLEAR) Urine pH (5-7) Ur Specific Gravit y (1.005-1.030) Urine Protein (Negative) Urine Glucose (UA) (Normal) Urine Ketones (Negative) Urine Blood (Negative) Urine Nitrate (Negative) Urine Bilirubin (Negative) Urine Urobilinogen (Negative) mg/dL Ur Leukocyte Sivan ase (Negative) Urine RBC (0-2) /hpf Urine WBC (0-5) /hpf Ur Squamous Epith Cells (0-5) /hpf Amorphous Sediment Urine Bacteria (NONE) /hpf Hyaline Casts /lpf Urine Mucus /hpf 12/20/20 12/20/20 Range/Units 15:45 16:40 WBC (4.0-10.0) 10^3/ uL RBC (4.1-5.3) 10^6/u L Hgb (11.5-15.3) g/dL Hct (37.0-47.0) % MCV (81-99) fL MCH (28.0-34.0) pg MCHC (30.0-36.0) g/dL RDW (12.1-15.1) % Plt Count (130-400) 10^3/c mm MPV (7.4-10.4) fL Neut % (Auto) % Lymph % (Auto) % [place] % (Auto) % Eos % (Auto) % Baso % (Auto) % Neut # (Auto) (1.8-7.7) 10^3/u L Lymph # (Auto) (0.8-4.8) 10^3/u L [place] # (Auto) (0.2-0.9) 10^3/u L Eos # (Auto) (0.0-0.8) 10^3/u L Baso # (Auto) (0.0-0.1) 10^3/u L Nucleated RBC % (a uto) % Nucleated RBCs # /100WBC Specimen Type Sample Site ABG pH (7.35-7.45) ABG pCO2 (35-45) mmHg ABG pO2 (80.0-100.0) mmH g ABG HCO3 (22-26) mmol/L ABG O2 Saturation ABG Base Excess (-2.0-2.0) mmol/ L Zachary Test A-a O2 Gradient (5-10) mmHg Hematocrit (37-47) % Hgb O2 Saturation (95-100) % Carboxyhemoglobin (0.4-20.1) %THgb Methemoglobin (0.4-1.5) % Total Hemoglobin (12-16) g/dL Sodium (131-143) mmol/L Potassium (3.5-5.0) mmol/L Glucose (70-115) mg/dL Ionized Calcium (1.1-1.4) mmol/L O2 Delivery Device O2 Liters/Min % FiO2 % Snipper ID Chloride (98-107) mmol/L Carbon Dioxide (22-29) mmol/L Anion Gap (5-19) BUN (8-23) mg/dL Creatinine (0.5-0.9) mg/dL GFR Calculation (90-130) mL/min Calculated Osmolal ity (285-295) mOsm/k g Calcium (8.5-10.5) mg/dL Total Bilirubin (0.15-1.2) mg/dL AST (0-32) U/L ALT (0-33) U/L Alkaline Phosphata se (35-105) IU/L Troponin T Baselin e 15 H (0-10) ng/L NT-Pro-B Natriuret Pep (0-125) pg/mL Total Protein (6.6-8.7) g/dL Albumin (3.5-5.2) g/dL Globulin (1.3-4.6) g/dL Lipase (13-60) U/L Urine Color Dark yellow (Yellow) Urine Appearance Clear (CLEAR) Urine pH 5 (5-7) Ur Specific Gravit y 1.015 (1.005-1.030) Urine Protein Neg (Negative) Urine Glucose (UA) Norm (Normal) Urine Ketones 1+ H (Negative) Urine Blood Neg (Negative) Urine Nitrate Negative (Negative) Urine Bilirubin 2+ H (Negative) Urine Urobilinogen 4 H (Negative) mg/dL Ur Leukocyte Sivan ase Negative (Negative) Urine RBC 0-4 H (0-2) /hpf Urine WBC 0-4 H (0-5) /hpf Ur Squamous Epith Cells 0-4 H (0-5) /hpf Amorphous Sediment Not Reportable Urine Bacteria 1+ H (NONE) /hpf Hyaline Casts 0-4 H /lpf Urine Mucus 1+ /hpf Discharge Plan Discharge Patient Disposition: Xfer Short-Term Hosp Clinical Impression: Bile leak, postoperative, Sepsis, Cellulitis, Acute kidney injury, Elevated bilirubin, Acute hyponatremia Condition: Stable Coding Level of Care Code ED 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
--- NOTE | 2020-12-20 21:44 | P.CONIM_ITS ---
Providers/Reason For Consult Consulting Physican/Specialty*: Dr. Reyes Reason for Consult*: Abdominal pain History of Present Illness History of Present Illness Michelle Walton is a 65 year old female who was admitted to the hospital earlier this month with acute pancreatitis which was managed conservatively. Patient continued to have persistent abdominal pain after discharge and und erwent laparoscopic cholecystectomy on 12/12/2020. Patient was discharged home the same day. Intraoperatively there was spillage of bile from a tear in the fundus with the gallbladder was retracted. There was no spillage of stones. Patient saw PCP yesterday for incision check and was also diagnosed with UTI. Today she complains of abdominal pain, denies any nausea or vomiting. Review of Systems General: Reports: 10 or more systems reviewed and unremarkable except in HPI and below Meds/Allergies Home Medications and Allergies Home Medications Medication Instructions Recorded Confirmed Last Taken Type nitroglycerin 0.4 mg sublingual 0.4 mg SUBLINGUAL Q5M PRN #50 tab 04/10/20 12/20/20 Unknown Rx tablet metoprolol succinate 100 mg 100 mg PO DAILY #90 tab 05/07/20 12/20/20 12/12/20 Rx tablet,extended release 24 hr nebulizer, tubing, mask, kit #1 ea 09/18/20 12/20/20 Unknown Rx Daliresp 500 mcg PO DAILY 11/24/20 12/20/20 12/11/20 History Trelegy Ellipta 1 inh INHALATION Q24H 11/24/20 12/20/20 Unknown History albuterol sulfate 2.5 mg INHALATION Q6H PRN 11/24/20 12/20/20 12/12/20 History alendronate 70 mg PO Q7D 11/24/20 12/20/20 12/11/20 History aspirin 81 mg PO DAILY 11/24/20 12/20/20 12/10/20 History atorvastatin 10 mg PO DAILY 11/24/20 12/20/20 12/11/20 History duloxetine 30 mg PO BID 11/24/20 12/20/20 12/11/20 History furosemide 10 mg PO BID 11/24/20 12/20/20 12/11/20 History isosorbide mononitrate 30 mg PO DAILY 11/24/20 12/20/20 12/12/20 History losartan-hydrochlorothiazide 1 tab PO DAILY 11/24/20 12/20/20 12/12/20 History montelukast [Singulair] 10 mg PO DAILY 11/24/20 12/20/20 12/11/20 History triamcinolone acetonide 0.1 % 1 applic TOPICAL BID #80 g 12/04/20 12/20/20 12/11/20 Rx topical cream albuterol sulfate 90 mcg/actuation 2 inh INHALATION Q4H PRN #8.5 g 12/06/20 12/20/20 12/12/20 Rx aerosol inhaler docusate sodium [Colace] 100 mg PO BID #30 cap 12/12/20 12/20/20 Unknown Rx hydrocodone-acetaminophen 1 tab PO Q6H PRN #20 tab 12/12/20 12/20/20 Unknown Rx ondansetron HCl [Zofran] 4 mg PO Q6H PRN #20 tab 12/12/20 12/20/20 Unknown Rx sulfamethoxazole 800 1 tab PO BID 10 Days #20 tab 12/19/20 12/20/20 Unknown Rx mg-trimethoprim 160 mg tablet Mucinex 1,200 mg PO BID PRN 12/20/20 12/20/20 Unknown History Oyster Shell Calcium-Vit D3 1 tab PO DAILY 12/20/20 12/20/20 Unknown History cholecalciferol (vitamin D3) 5,000 unit PO DAILY 12/20/20 12/20/20 Unknown History ergocalciferol (vitamin D2) 50,000 unit PO Q7D 12/20/20 12/20/20 Unknown History [Vitamin D2] ferrous sulfate 325 mg PO BID 12/20/20 12/20/20 Unknown History magnesium oxide 400 mg PO TID 12/20/20 12/20/20 Unknown History meloxicam 7.5 mg PO DAILY 12/20/20 12/20/20 Unknown History trazodone 50 mg PO BEDTIME PRN 12/20/20 12/20/20 Unknown History Allergies Allergy/AdvReac Type Severity Reaction Status Date / Time ciprofloxacin [From Cipro] Allergy Severe ALGY-Difficulty Verified 12/20/20 14:33 Breathing Penicillins Allergy Intermediate ALGY-Hives Verified 12/20/20 14:33 raisins Allergy ALGY-Rash Uncoded 12/20/20 14:33 PFSH Acute PFSH: Medical History Active asthma Acute pancreatitis Advanced COPD Bilateral primary osteoarthritis of knee CAD (coronary artery disease), [place] coronary artery Chronic hypercapnic respiratory failure Collapsed vertebra, not elsewhere classified, thoracic region, sequela of fracture DDD (degenerative disc disease) Essential (primary) hypertension Facet syndrome, lumbar Idiopathic scoliosis and kyphoscoliosis Iron deficiency Lumbosacral spondylosis without myelopathy Meralgia paresthetica, unspecified lower limb Mixed hyperlipidemia CASSIE (obstructive sleep apnea) Sensorineural hearing loss, bilateral Spondylolisthesis Tinnitus, bilateral Vitamin D deficiency Surgical History History of hysterectomy Hx of section Status post laparoscopic cholecystectomy (12/12/20) Family History Other CAD (coronary artery disease) Cancer Diabetes Hypertension Social History Smoking and tobacco status: former smoker Quit status (tobacco): has quit using tobacco Year quit tobacco: 2008 Former quit date comment: 1-2 PPD x 20 yrs Second hand smoke exposure: No Alcohol intake: never Lives independently: Yes Household members: family Marital status: / Current occupational status: disabled History of recent travel: No Current gender identity: Female Special sita needs: No Agree to transfusion: Yes Vitals/I&O/Wt Last Vital Signs Temp 97.7 F 12/20/20 14:19 Pulse 91 12/20/20 20:27 Resp 21 H 12/20/20 20:27 BP 95/72 12/20/20 19:50 Pulse Ox 99 12/20/20 20:27 12/20/20 12/20/20 12/20/20 06:59 14:59 22:59 Intake Total 350 / 350 Balance 350 / 350 Physical Exam Narrative: EXAM NARRATIVE: HEENT: Normocephalic, on home oxygen Eye: Sclera /conjunctiva normal Abdomen: Soft to palpation, tender around the umbilicus, cellulitis abdominal wall to the left of the umbilicus. Neurological: Oriented to place person and time Skin: Intact, no lesions appreciated on gross exam Urinary Catheter Management^: Redman: Cath Placed During This Visit: yes Reason for Continuing Indwelling Catheter: Accurate Measurement of Urinary Output in Critically Ill Patients Urinary Catheter Date of Insertion: 12/20/20 Urinary Catheter Time of Insertion: 17:31 Data Micro: Micro: Microbiology 12/20/20 17:09 Blood Culture - Pr eliminary Blood SPECIMEN [facility] 12/20/20 16:54 Blood Culture - Pr eliminary Blood SPECIMEN [facility] A&P Assessment and plan (1) Cellulitis: 65-year-old female with multiple comorbidities status post laparoscopic cholecystectomy on 12/12/2020 who now presents with abdominal pain and redness around the umbilical incision. She was noted to have a WBC of 19.6, sodium of 119 her bilirubin is up to 2.3 and alk phos was 219. A CT abdomen pelvis revealed small amount of ascites with subcutaneous fluid collection anterior to the left rectus sheath and in the supraumbilical region. Due to elevated LFTs a HIDA scan was ordered which showed small volume focal tracer activity in the gallbladder fossa concerning for potential bile leak/biloma Based on these findings patient will be transferred to [facility] in [place] for further work-up including ERCP if indicated. Status: Acute Coding Level of Care Code Acute Comb Capper for Albert Banks Diagnoses Cellulitis L03.90
--- NOTE | 2020-12-20 23:11 | PC.NURSE ---
Report called to Caridad Leong RN at [facility] at [phone]
== END 2020-12-20 23:41 | disposition short-term general hospital (02) ==
PROVIDERS: Emergency Medicine; Emergency Provider Family Medicine
DX: K91.89 Other postprocedural complications and disorders of digestive system (principal); A41.9 Sepsis, unspecified organism; L03.311 Cellulitis of abdominal wall; N17.9 Acute kidney failure, unspecified; E87.1 Hypo-osmolality and hyponatremia; R79.89 Other specified abnormal findings of blood chemistry; Z90.49 Acquired absence of other specified parts of digestive tract; I25.10 Atherosclerotic heart disease of native coronary artery without angina pectoris; J44.9 Chronic obstructive pulmonary disease, unspecified; I10 Essential (primary) hypertension; E78.2 Mixed hyperlipidemia; Z87.891 Personal history of nicotine dependence
CPT/HCPCS: 36600; 51702; 70450; 74177; 78226; 80051; 80053; 81001; 82330; 82805; 83690; 83880; 84484; 85025; 87040; 93005; 94640; 96365; 96367; 96375; 96376; 99285; A9537; J0692; J1170; J3370; Q9967

== ENCOUNTER → 2021-03-06 15:57 | Outpatient (BNVA) | payer MEDICARE, MEDICAID, SELFPAY | PROVIDERS: PCP Nurse Practitioner Family; Visit Provider Nurse Practitioner Family | DX: R19.7 Diarrhea, unspecified (principal); W19.XXXA Unspecified fall, initial encounter; R73.9 Hyperglycemia, unspecified; E55.9 Vitamin D deficiency, unspecified; E78.2 Mixed hyperlipidemia; R41.0 Disorientation, unspecified; R14.0 Abdominal distension (gaseous); D64.9 Anemia, unspecified | CPT/HCPCS: 80053; 80061; 81000; 82306; 83036; 84443; 85025 ==

== ENCOUNTER 2021-03-08 09:56 | Emergency (ER) | payer MEDICARE, MEDICAID, SELFPAY ==
[2021-03-08 09:58] VITALS: BP 186/96; PULSE 85; RESP 20; TEMP 37.4; O2SAT 97
--- NOTE | 2021-03-08 10:38 | ECG_ITS ---
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1955 Requested By: Yang Villa Order Number: [id number] Reading MD: CHIDI HUI Measurements Intervals [place] Rate: 74 P: 72 SC: 151 QRS: 3 QRSD: 91 T: 56 QT: 406 QTc: 452 Interpretive Statements SINUS RHYTHM POSSIBLE LEFT VENTRICULAR HYPERTROPHY [VOLTAGE CRITERIA PLUS LAE OR QRS WIDENING] NONSPECIFIC ST & T-WAVE ABNORMALITY Compared to ECG 12/20/2020 15:36:53 T-wave abnormality now present Sinus arrhythmia no longer present Electronically Signed On 03-08-2021 19:24:19 CDT by CHIDI HUI [id number]
--- NOTE | 2021-03-08 10:38 | CT_ITS ---
WS: [id number] CT ABDOMEN AND PELVIS WITH CONTRAST HISTORY: Nausea, cramping and rectal bleeding. TECHNIQUE: Imaging performed of the abdomen and pelvis with IV contrast. Single phase imaging of the abdomen. Coronal and sagittal reformats are submitted. All CT scans at [facility] use at least one of these dose optimization techniques: automated exposure control; mA and/or kV adjustment per patient size (includes targeted exams where dose is matched to clinical indication); or iterativ e reconstruction. IV CONTRAST: Omnipaque 300; 95 mL IV. Oral contrast: No DLP: 1769.03 mGy.cm COMPARISON: 12/20/2020 Lower thorax: Dependent changes at the lung bases with mild progression since 12/20/2020. Moderate enl argement of the heart. No hiatal hernia. Liver/biliary system: Liver is normal size. New moderate pneumobilia since the prior examination of . There is a common bile duct stent which is probably the source of the pneumobilia. Portal v ein is patent. Gallbladder: Status post cholecystectomy. Mild soft tissue thickening and a small amount of fluid at the gallbladder fossa but improved. Pancreas: Improved edema surrounding the pancreas. Pancreatic head is poorly visualized. No bile duct dilatation. Spleen: Normal size spleen. No mass or infarct. Adrenal glands: Moderate diffuse hyperplasia of the LEFT adrenal gland. Normal size RIGHT adrenal gla nd. Right kidney: Stable cyst in the lower pole measures 2.5 cm. No obstruction. Left kidney: Stable exophytic cyst measuring 1.1 cm from the lower kidney. Aorta: Mild atherosclerosis with no aneurysm. Lymphadenopathy: None. Free fluid: Fluid collection in the central mesentery measures 2.3 x 3.1 cm with moderate improvement since the prior study. The additional smaller fluid collections in the mesentery and the edema have significantly improved. GI tract: No GI tract obstruction. No wall thickening or mucosal thickening. The appendix is normal. A few scattered diverticula without diverticulitis. Abdominal wall: Significant improvement in the soft tissue edema and anasarca and possible hematoma s ana paula 12/20/2020. Very minimal residual induration. No focal collection. Pelvis: Prior hysterectomy. No free fluid. Bones: Mild anterior wedging of T12 is stable. No osteoblastic or osteolytic disease. CT/CT abdomen pelvis w con* [id number] IMPRESSION: 1. No GI tract obstruction or diverticulitis. There are a few scattered divert icula in the descending colon. 2. Pneumobilia is new since the prior study and probably related to the common bile duct stent. 3. Overall significant improvement in the fluid collections in the central mes entery and edema and also the abdominal wall induration and collections. 4. Mild progression of atelectasis at the lung bases. 5. Moderate cardiomegaly.
--- NOTE | 2021-03-08 10:42 | ED_ITS ---
HPI - Abdominal Pain General: Chief Complaint: Abdominal Pain Stated Complaint: ABDOMINAL PAIN/ BLOODY STOOL/ NAUSEA/ DIARRHEA Time Seen by Provider: 03/08/21 10:04 History of Present Illness: HPI narrative: 66-year-old female presents emergency room via EMS complaining abdominal pain cramping bloody stools for the last 4 days. She has some nausea with it as well. She denies any dysuria urgency or frequency. The bloody stools discolor the entire toilet water. She does take aspirin daily. She does not take any other anticoagulants. She denies previously having a colonoscopy. She had similar episode about a year ago but had no evaluation. MD elicited complaint: abdominal pain Onset (ago): day(s) (4) Location: None Severity: mild Quality: cramping Radiation: none Exacerbating factors: nothing Relieving factors: nothing Associated Symptoms: Reports diarrhea, hematochezia, nausea and poor appetite; Denies anorexia, belching, bloating, change in bowel habits, change in stool character, chills, coffee ground emesis, constipation, GI cramping, dyspepsia, dysuria, excessive flatus, fever(s), heartburn, hematuria, hematemesis, fecal incontinence, loose stools, melena, syncope and vomiting Review of Systems Const: Denies: fever(s) or chills ENMT: Denies: throat pain, ear or mastoid pain, nasal discharge or nasal congestion Card: Denies: syncope Resp: Denies: dyspnea, productive cough or non-productive cough GI: Reports: nausea, diarrhea and hematochezia; Denies: vomiting, hematemesis, coffee ground emesis, heartburn, constipation, bloating, GI cramping, belching, excessive flatus, fecal incontinence, change in bowel habits, change in stool character or melena : Denies: dysuria or hematuria Skin/Breast: Denies: rash or pruritus PFSH ED PFSH: Medical History Active asthma Acute pancreatitis Advanced COPD Bilateral primary osteoarthritis of knee CAD (coronary artery disease), [place] coronary artery Chronic hypercapnic respiratory failure Collapsed vertebra, not elsewhere classified, thoracic region, sequela of fracture DDD (degenerative disc disease) Essential (primary) hypertension Facet syndrome, lumbar Idiopathic scoliosis and kyphoscoliosis Iron deficiency Lumbosacral spondylosis without myelopathy Meralgia paresthetica, unspecified lower limb Mixed hyperlipidemia CASSIE (obstructive sleep apnea) Sensorineural hearing loss, bilateral Spondylolisthesis Tinnitus, bilateral Vitamin D deficiency Surgical History History of hysterectomy Hx of section Status post laparoscopic cholecystectomy (12/12/20) Family History Other CAD (coronary artery disease) Cancer Diabetes Hypertension Social History Smoking and tobacco status: never smoked Quit status (tobacco): has quit using tobacco Year quit tobacco: 2008 Former quit date comment: 1-2 PPD x 20 yrs Second hand smoke exposure: No Alcohol intake: never Lives independently: Yes Household members: family Marital status: / Current occupational status: disabled History of recent travel: No Current gender identity: Female Special sita needs: No Agree to transfusion: Yes Physical Exam Const: COMMON NORMALS: no acute distress GENERAL APPEARANCE: cooperative and comfortable HENMT: COMMON NORMALS: normocephalic, atraumatic and hearing grossly normal bilaterally HEAD & SCALP: normocephalic and atraumatic Eye: COMMON NORMALS: Equal, round and reactive pupils present, EOMs intact bilaterally, conjunctivae normal and no scleral icterus CONJUNCTIVA: Yes conjunctivae normal PUPIL: Yes Equal, round and reactive pupils present Neck/C-Spine: COMMON NORMALS: full ROM, no lymphadenopathy, supple and no JVD Lymph: LYMPHATIC: no lymphadenopathy noted and no lymphedema noted Resp: COMMON NORMALS: normal respiratory effort, No retractions, No use of accessory muscles and clear to auscultation bilaterally AUSCULTATION: clear to auscultation bilaterally Cardio: COMMON NORMALS: no JVD, regular rate, regular rhythm and No murmurs present (Cardio) RATE: regular rate RHYTHM: regular rhythm GI: COMMON NORMALS: No hepatosplenomegaly present AUSCULTATION: Yes normoactive bowel sounds PALPATION: Yes Tenderness to palpation present (GI) Details: LLQ, No Guarding due to palpation present (GI) and Yes No hepatosplenomegaly present Extremity: COMMON NORMALS: normal to inspection, capillary refill normal, no clubbing, cyanosis or edema, no calf tenderness and no pedal edema Skin: COMMON NORMALS: no rashes or lesions noted GENERAL SKIN EXAM: no rashes or lesions noted Course Vital Signs: Vital signs: Vital Signs Temperature 99.4 F 03/08/21 09:58 Pulse Rate 81 03/08/21 16:18 Respiratory Rate 20 H 03/08/21 16:18 Blood Pressure 187/104 03/08/21 13:18 Pulse Oximetry 97 03/08/21 16:18 MDM - Abdominal Pain MDM Narrative: Medical decision making narrative: Reviewed CT with and labs to patient. She does have a mild colitis we will get her started on sulfamethoxazole trimethoprim and metronidazole. Zofran to use as needed clear liquid diet for next 24 to 48 hours. She had some hypokalemia as well she was given supplement here and discharged home on potassium supplement. Encouraged follow-up with her doctor within the next 2 days to recheck her potassium. Lab Data: Labs: Lab Results 03/08/21 03/08/21 03/08/21 Range/Units 10:09 11:20 11:20 WBC 4.6 (4.0-10.0) 10^3/ uL RBC 3.32 L (4.1-5.3) 10^6/u L Hgb 9.1 L (11.5-15.3) g/dL Hct 29.0 L (37.0-47.0) % MCV 87.3 (81-99) fL MCH 27.4 L (28.0-34.0) pg MCHC 31.4 (30.0-36.0) g/dL RDW 15.1 (12.1-15.1) % Plt Count 135 (130-400) 10^3/c mm MPV 9.6 (7.4-10.4) fL Neut % (Auto) 67.2 % Lymph % (Auto) 22.4 % [place] % (Auto) 8.9 % Eos % (Auto) 0.2 % Baso % (Auto) 0.2 % Neut # (Auto) 3.08 (1.8-7.7) 10^3/u L Lymph # (Auto) 1.0 (0.8-4.8) 10^3/u L [place] # (Auto) 0.4 (0.2-0.9) 10^3/u L Eos # (Auto) 0.0 (0.0-0.8) 10^3/u L Baso # (Auto) 0.0 (0.0-0.1) 10^3/u L Nucleated RBC % (a uto) 0 % Nucleated RBCs # 0.0 /100WBC Sodium (136-145) mmol/L Potassium (3.5-5.1) mmol/L Chloride (98-107) mmol/L Carbon Dioxide (22-29) mmol/L Anion Gap (5-19) BUN (8-23) mg/dL Creatinine (0.5-0.9) mg/dL GFR Calculation (90-130) mL/min Glucose (65-115) mg/dL Calculated Osmolal ity (285-295) mOsm/k g Lactic Acid 1.1 (0.5-2.2) mmol/L Calcium (8.5-10.5) mg/dL Total Bilirubin (0.15-1.2) mg/dL AST (0-32) U/L ALT (0-33) U/L Alkaline Phosphata se (35-105) IU/L Creatine Kinase (26-192) U/L Total Protein (6.6-8.7) g/dL Albumin (3.5-5.2) g/dL Globulin (1.3-4.6) g/dL Lipase (13-60) U/L Urine Color Yellow (Yellow) Urine Appearance Clear (CLEAR) Urine pH 7 (5-7) Ur Specific Gravit y 1.005 (1.005-1.030) Urine Protein Trace (Negative) Urine Glucose (UA) Norm (Normal) Urine Ketones Negative (Negative) Urine Blood 3+ H (Negative) Urine Nitrate Negative (Negative) Urine Bilirubin Neg (Negative) Urine Urobilinogen Norm (Negative) mg/dL Ur Leukocyte Sivan ase Negative (Negative) Urine RBC 15-25 H (0-2) /hpf Urine WBC 0-4 H (0-5) /hpf Ur Squamous Epith Cells 0-4 H (0-5) /hpf Amorphous Sediment Not Reportable Urine Bacteria Trace (NONE) /hpf /16/ Range/Units 11:20 WBC (4.0-10.0) 10^3/ uL RBC (4.1-5.3) 10^6/u L Hgb (11.5-15.3) g/dL Hct (37.0-47.0) % MCV (81-99) fL MCH (28.0-34.0) pg MCHC (30.0-36.0) g/dL RDW (12.1-15.1) % Plt Count (130-400) 10^3/c mm MPV (7.4-10.4) fL Neut % (Auto) % Lymph % (Auto) % [place] % (Auto) % Eos % (Auto) % Baso % (Auto) % Neut # (Auto) (1.8-7.7) 10^3/u L Lymph # (Auto) (0.8-4.8) 10^3/u L [place] # (Auto) (0.2-0.9) 10^3/u L Eos # (Auto) (0.0-0.8) 10^3/u L Baso # (Auto) (0.0-0.1) 10^3/u L Nucleated RBC % (a uto) % Nucleated RBCs # /100WBC Sodium 132 L (136-145) mmol/L Potassium 2.3 L* (3.5-5.1) mmol/L Chloride 90 L (98-107) mmol/L Carbon Dioxide 34 H (22-29) mmol/L Anion Gap 10.3 (5-19) BUN 7 L (8-23) mg/dL Creatinine 0.8 (0.5-0.9) mg/dL GFR Calculation 71.5 L (90-130) mL/min Glucose 107 (65-115) mg/dL Calculated Osmolal ity 272 L (285-295) mOsm/k g Lactic Acid (0.5-2.2) mmol/L Calcium 7.5 L (8.5-10.5) mg/dL Total Bilirubin 0.6 (0.15-1.2) mg/dL AST 29 (0-32) U/L ALT 14 (0-33) U/L Alkaline Phosphata se 65 (35-105) IU/L Creatine Kinase 42 (26-192) U/L Total Protein 6.1 L (6.6-8.7) g/dL Albumin 3.1 L (3.5-5.2) g/dL Globulin 3.0 (1.3-4.6) g/dL Lipase 20 (13-60) U/L Urine Color (Yellow) Urine Appearance (CLEAR) Urine pH (5-7) Ur Specific Gravit y (1.005-1.030) Urine Protein (Negative) Urine Glucose (UA) (Normal) Urine Ketones (Negative) Urine Blood (Negative) Urine Nitrate (Negative) Urine Bilirubin (Negative) Urine Urobilinogen (Negative) mg/dL Ur Leukocyte Sivan ase (Negative) Urine RBC (0-2) /hpf Urine WBC (0-5) /hpf Ur Squamous Epith Cells (0-5) /hpf Amorphous Sediment Urine Bacteria (NONE) /hpf Discharge Plan Discharge Patient Disposition: Home Clinical Impression: Colitis Condition: Stable Prescriptions: New sulfamethoxazole-trimethoprim 800-160 mg tablet 1 tab PO BID 7 Days Qty: 14 RF: 0 metronidazole 500 mg tablet 500 mg PO BID 7 Days Qty: 14 RF: 0 Zofran 4 mg tablet 4 mg PO Q6H PRN (Reason: nausea and vomiting) Qty: 15 RF: 0 potassium chloride 20 mEq tablet extended release 20 meq PO BID Qty: 5 RF: 0 No Action (DME) nebulizer, tubing, mask, kit See Rx Instructions .Route .MEDSUPPLY Qty: 1 RF: 0 triamcinolone acetonide 0.1 % cream 1 applic topical BID Qty: 80 RF: 0 (DME) hospital bed See Rx Instructions .Route .MEDSUPPLY Qty: 1 RF: 0 nitroglycerin 0.4 mg tablet, sublingual 0.4 mg SUBLINGUAL Q5M PRN (Reason: chest pain) Qty: 50 RF: 2 Trelegy Ellipta 100-62.5-25 mcg blister with device See Rx Instructions .ROUTE .COMPLEX Qty: 60 RF: 3 albuterol sulfate [Ventolin HFA] 90 mcg/actuation HFA aerosol inhaler See Rx Instructions .ROUTE .COMPLEX Qty: 8.5 RF: 0 albuterol sulfate 2.5 mg /3 mL (0.083 %) solution for nebulization 2.5 mg INHALATION Q6H PRN (Reason: Shortness Of Breath) Qty: 360 RF: 2 alendronate 70 mg tablet 70 mg PO Q7D Qty: 12 RF: 0 trazodone 50 mg tablet 50 mg PO BEDTIME PRN (Reason: Sleep) Qty: 30 RF: 2 docusate sodium [Colace] 100 mg capsule 100 mg PO BID Qty: 30 RF: 0 aspirin 81 mg Tablet,Chewable 81 mg PO DAILY@0900 RF: 0 montelukast [Singulair] 10 mg Tablet 10 mg PO DAILY@0900 RF: 0 furosemide 20 mg Tablet 10 mg PO BID@0900,2100 RF: 0 duloxetine 30 mg capsule,delayed release(DR/EC) 30 mg PO BID@0900,2100 RF: 0 ergocalciferol (vitamin D2) [Vitamin D2] 1,250 mcg (50,000 unit) capsule 50,000 unit PO Q7D RF: 0 ferrous sulfate 325 mg (65 mg iron) tablet 325 mg PO BID@0900,2100 RF: 0 calcium carbonate-vitamin D3 [Oyster Shell Calcium-Vit D3] 500 mg(1,250mg) - 200 unit tablet 1 tab PO DAILY@0900 RF: 0 cholecalciferol (vitamin D3) 125 mcg (5,000 unit) tablet 5,000 unit PO DAILY RF: 0 guaifenesin [Mucinex] 600 mg tablet extended release 12hr 1,200 mg PO BID@0900,2100 PRN (Reason: Congestion) RF: 0 atorvastatin 10 mg tablet 10 mg PO DAILY@0900 RF: 0 isosorbide mononitrate 30 mg tablet extended release 24 hr 30 mg PO DAILY@0900 RF: 0 metoprolol succinate 100 mg tablet extended release 24 hr 100 mg PO DAILY@0900 RF: 0 tramadol 50 mg tablet 50 mg PO BID@0900,2100 PRN (Reason: pain) RF: 0 meloxicam 7.5 mg tablet 7.5 mg PO DAILY@0900 RF: 0 losartan-hydrochlorothiazide 100-25 mg tablet 1 tab PO DAILY@0900 RF: 0 magnesium oxide 400 mg (241.3 mg magnesium) tablet 400 mg PO TID@ RF: 0 Daliresp 500 mcg tablet 500 mcg PO DAILY@0900 RF: 0 potassium chloride 20 mEq tablet extended release 20 meq PO BID@0900,2100 RF: 0 Discharge Orders: Discharge ED (Routine); Ordered 03/08/21 Ordered By: Yang Nichols Referrals: Trish Linares FNP [Primary Care Provider] - Patient Instructions: Opioid Safety Activity Restrictions/Additional Instructions: Follow-up with your doctor within the week. Return if you have further problems. Coding Level of Care Code ED Learning And Development Analyst for Albert Fwd Exam Comprehensive
[2021-03-08 10:58] LABS: Add Urine Microscopic? YES; Bilirubin Urine Neg (Negative); Blood Urine 3+ (Negative); Glucose Urine UA Norm (Normal); Ketones Urine Negative (Negative); Leukocyte Esterase Urine Negative (Negative); Nitrate Urine Negative (Negative); Protein Urine Trace (Negative); Specific Gravity, Urine 1.005 (1.005-1.030); Urine Appearance Clear (CLEAR); Urine Color Yellow (Yellow); Urobilinogen Urine Norm (Negative); pH Urine 7 (5-7)
[2021-03-08] MEDS: iohexol 300 mg/mL 100 mL Btl IV (11:00)
[2021-03-08 11:03] LABS: Add Urine Culture? Yes; Bacteria Urine TRACE /hpf; RBC Urine 15-25 /hpf (0-2); Squamous Epithelial Cell Urine 0-4 /hpf (0-5); WBC Urine 0-4 /hpf (0-5)
[2021-03-08 11:32] LABS: Basophils % 0.2 %; Eosinophils % 0.2 %; Hemoglobin 9.1 g/dL (11.5-15.3); Lymphocytes % 22.4 %; Mean Corpuscular HGB Conc 31.4 g/dL (30.0-36.0); Mean Corpuscular Hemoglobin 27.4 pg (28.0-34.0); Mean Corpuscular Volume 87.3 fL (81-99); Mean Platelet Volume 9.6 fL (7.4-10.4); Monocytes # 0.4 10^3/uL (0.2-0.9); Monocytes % 8.9 %; Neutrophils # 3.08 10^3/uL (1.8-7.7); Neutrophils % 67.2 %; Nucleated Red Blood Cells % 0 %; Platelet Count 135 10^3/cmm (130-400); Red Blood Count 3.32 10^6/uL (4.1-5.3); Red Cell Distribution Width 15.1 % (12.1-15.1); White Blood Count 4.6 10^3/uL (4.0-10.0)
[2021-03-08 11:51] LABS: Lactic Sepsis W/Reflex 1.1 mmol/L (0.5-2.2)
[2021-03-08 11:53] LABS: Alanine Aminotransferase 14 U/L (0-33); Albumin Level 3.1 g/dL (3.5-5.2); Alkaline Phosphatase 65 IU/L (35-105); Anion Gap 10.3 (5-19); Aspartate Amino Transferase 29 U/L (0-32); Blood Urea Nitrogen 7 mg/dL (8-23); Calcium 7.5 mg/dL (8.5-10.5); Carbon Dioxide 34 mmol/L (22-29); Chloride 90 mmol/L (98-107); Creatine Phosphokinase 42 U/L (26-192); Glomerular Filtration Rate 71.5 mL/min (90-130); Glucose 107 mg/dL (65-115); Lipase 20 U/L (13-60); Osmolality Calculated 272 mOsm/kg (285-295); Sodium 132 mmol/L (136-145); Total Bilirubin 0.6 mg/dL (0.15-1.2); Total Protein 6.1 g/dL (6.6-8.7)
[2021-03-08 12:00] LABS: Potassium 2.3 mmol/L (3.5-5.1)
[2021-03-08] MEDS: sodium chloride 0.9% 1,000 ML 999 ML IV (12:15)
[2021-03-08 12:17] VITALS: PULSE 76; RESP 15; O2SAT 99
[2021-03-08] MEDS: lidocaine 1% 5 ML in potassium chloride premix 100 ML 25 ML IV (13:16)
[2021-03-08 13:18] VITALS: BP 187/104; PULSE 78; RESP 16; O2SAT 96
[2021-03-08 16:18] VITALS: PULSE 81; RESP 20; O2SAT 97
== END 2021-03-08 16:19 | disposition home or self-care (01) ==
PROVIDERS: Emergency Provider Family Medicine; PCP Nurse Practitioner Family
DX: K52.9 Noninfective gastroenteritis and colitis, unspecified (principal); Z79.82 Long term (current) use of aspirin; J44.9 Chronic obstructive pulmonary disease, unspecified; I25.10 Atherosclerotic heart disease of native coronary artery without angina pectoris; I10 Essential (primary) hypertension; E78.2 Mixed hyperlipidemia; Z87.891 Personal history of nicotine dependence
CPT/HCPCS: 74177; 80053; 81001; 82550; 83605; 83690; 85025; 87040; 87086; 87205; 93005; 96365; 96366; 99284; J3480; J7030; Q9967

== ENCOUNTER → 2021-04-01 11:35 | Outpatient (BNVA) | payer MEDICARE, MEDICAID, SELFPAY | PROVIDERS: PCP Nurse Practitioner Family; Visit Provider Surgery | DX: K80.20 Calculus of gallbladder without cholecystitis without obstruction (principal); Z20.822 Contact with and (suspected) exposure to COVID-19 | CPT/HCPCS: 87635 ==

== ENCOUNTER → 2021-04-19 09:38 | Outpatient (BNVA) | payer MEDICARE, MEDICAID, SELFPAY | PROVIDERS: PCP Nurse Practitioner Family; Visit Provider Surgery | DX: E87.6 Hypokalemia (principal) | CPT/HCPCS: 84132 ==

== ENCOUNTER → 2021-05-06 15:15 | Outpatient (BNVA) | payer MEDICARE, MEDICAID, SELFPAY | PROVIDERS: PCP Nurse Practitioner Family; Visit Provider Nurse Practitioner Family | DX: Z20.822 Contact with and (suspected) exposure to COVID-19 (principal) | CPT/HCPCS: 87635 ==

== ENCOUNTER → 2021-07-16 09:34 | Outpatient (BNVA) | payer MEDICARE, MEDICAID, SELFPAY | PROVIDERS: PCP Nurse Practitioner Family; Visit Provider Nurse Practitioner Family | DX: I10 Essential (primary) hypertension (principal); E55.9 Vitamin D deficiency, unspecified; R73.9 Hyperglycemia, unspecified | CPT/HCPCS: 80053; 80061; 82306; 83036; 84443; 85025 ==

== ENCOUNTER → 2021-11-07 12:02 | Outpatient (BNVA) | payer MEDICARE, MEDICAID, SELFPAY | PROVIDERS: PCP Nurse Practitioner Family; Visit Provider Nurse Practitioner Family | DX: L30.9 Dermatitis, unspecified (principal); I10 Essential (primary) hypertension; E55.9 Vitamin D deficiency, unspecified; R73.9 Hyperglycemia, unspecified; I25.10 Atherosclerotic heart disease of native coronary artery without angina pectoris; M81.0 Age-related osteoporosis without current pathological fracture; G47.00 Insomnia, unspecified; E78.2 Mixed hyperlipidemia; J44.9 Chronic obstructive pulmonary disease, unspecified | CPT/HCPCS: 80053; 80061; 82306; 82607; 83036; 83735; 84443; 85025 ==

== ENCOUNTER → 2022-01-28 11:47 | Outpatient (BNVA) | payer MEDICARE, MEDICAID, SELFPAY | PROVIDERS: PCP Nurse Practitioner Family; Visit Provider Family Medicine | DX: E78.2 Mixed hyperlipidemia (principal); E55.9 Vitamin D deficiency, unspecified; I10 Essential (primary) hypertension; L30.9 Dermatitis, unspecified | CPT/HCPCS: 80053; 80061; 82306; 84443; 85025 ==

== ENCOUNTER → 2022-03-26 10:12 | Outpatient (BNVA) | payer MEDICARE, MEDICAID, SELFPAY | PROVIDERS: PCP Nurse Practitioner Family; Visit Provider Internal Medicine Critical Care Medicine | DX: J44.9 Chronic obstructive pulmonary disease, unspecified (principal); J96.11 Chronic respiratory failure with hypoxia; Z87.891 Personal history of nicotine dependence; J96.12 Chronic respiratory failure with hypercapnia; Z99.81 Dependence on supplemental oxygen | CPT/HCPCS: 99214 ==

== ENCOUNTER 2022-04-14 18:30 | Emergency (ER) | payer MEDICARE, MEDICAID, SELFPAY ==
[2022-04-14 18:45] VITALS: BP 153/79; PULSE 80; RESP 20; TEMP 36.6; O2SAT 95; BMI 53.6
--- NOTE | 2022-04-14 18:51 | USR_ITS ---
PROCEDURE INFORMATION: Exam: US Duplex Left Lower Extremity Veins, Limited Exam date and time: 04/14/2022 8:56 PM Age: 67 years old Clinical indication: Leg, lower; Patient HX: Painful lump anterior left chun x 1 week. No history of dvt per patient. ; Additional info: R/O dvt TECHNIQUE: Imaging protocol: Real-time Duplex ultrasound of the Left Lower Extremity with 2-D keller scale, color Doppler flow and spectral waveform analysis with image documentation. Limited exam focused on the left lower extremity veins. COMPARISON: US Renal Kidney Structu* [id number] 01/06/2017 3:11 PM FINDINGS: Left deep veins: Unremarkable. The common femoral, femoral, proximal profunda femoral and popliteal veins are patent without thrombus. Normal Doppler waveforms. Normal compressibility and/or augmentation response. Left superficial veins: Unremarkable. Saphenofemoral junction is patent without thrombus. Soft tissues: Rounded focal lesion in the anterior chun in the region of pain/lump. Imaging appearance is nonspecific but given similar background echogenicity to the subcutaneous fat is most likely a lipoma and measures 1.2 x 1.1 cm. US/CV venous duplex [facility] [id number] IMPRESSION: No evidence of deep vein thrombosis.
--- NOTE | 2022-04-14 18:52 | W.ED.GENADLT ---
HPI - General Adult General: Chief complaint: General Medical Stated complaint: possible blood clot Time Seen by Provider: 04/14/22 18:51 History of Present Illness: 67-year-old female comes in for concerns of a tender nodule to the left lower leg. Patient noticed the area about 2 to 3 days ago. Patient had a home health nurse look at it and then was seen by her physician today who wanted to evaluated for DVT. Patient has a history of COPD, coronary artery disease, nicotine dependence, hypertension, anemia, hyperglycemia, pancreatitis, and dermatitis. Associated symptoms: Reports dyspnea (No change from usual shortness of breath); Deny chest pain Review of Systems General: Reports: 10 or more systems reviewed and unremarkable except in HPI and below ENMT: Denies: throat pain Card: Denies: chest pain Resp: Reports: dyspnea (No change from usual shortness of breath) Musc: Reports: extremity pain PFS ED PFSH: Medical History Active asthma Acute pancreatitis Advanced COPD Bilateral primary osteoarthritis of knee CAD (coronary artery disease), [place] coronary artery Chronic hypercapnic respiratory failure Collapsed vertebra, not elsewhere classified, thoracic region, sequela of fracture DDD (degenerative disc disease) Essential (primary) hypertension Facet syndrome, lumbar Idiopathic scoliosis and kyphoscoliosis Iron deficiency Lumbosacral spondylosis without myelopathy Meralgia paresthetica, unspecified lower limb Mixed hyperlipidemia CASSIE (obstructive sleep apnea) Sensorineural hearing loss, bilateral Spondylolisthesis Tinnitus, bilateral Vitamin D deficiency Surgical History History of hysterectomy Hx of section Status post laparoscopic cholecystectomy (12/12/20) Family History Other CAD (coronary artery disease) Cancer Diabetes Hypertension Social History Smoking and tobacco status: former smoker Quit status (tobacco): has quit using tobacco Year quit tobacco: 2008 Former quit date comment: 1-2 PPD x 20 yrs Second hand smoke exposure: No Alcohol intake: never Lives independently: Yes Household members: family Marital status: / Current occupational status: disabled History of recent travel: No Current gender identity: Female Special sita needs: No Agree to transfusion: Yes Physical Exam Const: COMMON NORMALS: alert HENMT: COMMON NORMALS: normocephalic HEAD & SCALP: normocephalic Resp: COMMON NORMALS: normal respiratory effort AUSCULTATION: wheezes Cardio: COMMON NORMALS: regular rate and regular rhythm RATE: regular rate RHYTHM: regular rhythm Extremity: LEFT LOWER EXTREMITY: Yes lower leg (Palpable nodule with surrounding tenderness minimal redness.) Left lower leg: Yes inspection, Yes palpation and Yes neurovascular exam Neuro: SENSORIUM/ORIENTATION: Yes alert Skin: COMMON NORMALS: no rashes or lesions noted GENERAL SKIN EXAM: no rashes or lesions noted Course Vital Signs: Vital signs: Vital Signs Temperature 98.2 F 04/14/22 19:11 Pulse Rate 68 04/14/22 20:33 Respiratory Rate 18 04/14/22 20:33 Blood Pressure 156/70 04/14/22 20:33 Pulse Oximetry 99 04/14/22 20:33 Oxygen Delivery Me thod 04/14/22 20:33 Oxygen Flow Rate 3 04/14/22 20:33 MDM - General Adult Medical Decision Making 67-year-old female comes in today with a tender palpable nodule to the left lower extremity. On evaluation I noted a 1 to 2 cm nodule to the left lower extremity that is tender to touch. There is some mild redness at the site of the nodule. No significant surrounding edema. Strong positive pedal pulses. Differential diagnosis includes superficial thrombophlebitis, DVT, cellulitis. Ultrasound noted no DVT. Feel the patient probably has a superficial thrombophlebitis to the leg. We will go ahead and treat for secondary infection with azithromycin. Patient was instructed to use acetaminophen for pain. Recommend follow-up with primary care for further instruction return to ER for new concerns. Lab Data Radiology Impressions Venous Duplex 04/14/22 18:51 IMPRESSION: No evidence of deep vein thrombosis. Discharge Plan Discharge Patient Disposition: Home Clinical Impression: Superfic phlebitis-leg Qualifiers: Laterality: left Qualified Code(s): I80.02 - Phlebitis and thrombophlebitis of superficial vessels of left lower extremity Condition: Stable Prescriptions: New azithromycin 250 mg tablet 250 mg PO DAILY 4 Days Qty: 4 0RF Rx Instructions: start on day 2 of therapy No Action (DME) nebulizer, tubing, mask, kit See Rx Instructions .Route .MEDSUPPLY Qty: 1 0RF Rx Instructions: As directed (DME) hospital bed See Rx Instructions .Route .MEDSUPPLY Qty: 1 0RF Rx Instructions: elevated HOB to at least 30 degrees when sleeping nystatin-triamcinolone 100,000-0.1 unit/g-% cream 1 applic topical BID 14 Days Qty: 60 0RF clotrimazole-betamethasone 1-0.05 % cream 1 applic topical BID Qty: 45 0RF loratadine [Claritin] 10 mg tablet 10 mg PO DAILY Qty: 30 0RF nitroglycerin 0.4 mg tablet, sublingual 0.4 mg SUBLINGUAL Q5M PRN (Reason: chest pain) Qty: 50 2RF ergocalciferol (vitamin D2) [Vitamin D2] 1,250 mcg (50,000 unit) capsule 50,000 unit PO Q7D Qty: 4 5RF Rx Instructions: TAKE ON TUESDAYS. FeroSul 325 mg (65 mg iron) tablet 325 mg PO BID montelukast 10 mg tablet 10 mg PO DAILY albuterol sulfate 2.5 mg /3 mL (0.083 %) solution for nebulization 2.5 mg inhalation Q6H PRN (Reason: Shortness Of Breath Or Wheezing) trazodone 50 mg tablet 50 mg PO BEDTIME PRN (Reason: Sleep) atorvastatin 10 mg tablet 10 mg PO DAILY isosorbide mononitrate 30 mg tablet extended release 24 hr 30 mg PO DAILY alendronate 70 mg tablet 70 mg PO Q7D Rx Instructions: ON THURSDAY metoprolol succinate 100 mg tablet extended release 24 hr 100 mg PO DAILY aspirin 81 mg tablet,delayed release (DR/EC) 81 mg PO DAILY meloxicam 7.5 mg tablet 7.5 mg PO DAILY magnesium oxide 400 mg (241.3 mg magnesium) tablet 400 mg PO TID hydrochlorothiazide 25 mg tablet 25 mg PO DAILY furosemide 20 mg tablet 10 mg PO BID Ventolin HFA 90 mcg/actuation HFA aerosol inhaler 2 puff inhalation Q4H PRN (Reason: Shortness Of Breath) losartan 100 mg tablet 100 mg PO DAILY duloxetine 30 mg capsule,delayed release(DR/EC) 30 mg PO DAILY Oyster Shell Calcium-Vit D3 500 mg-5 mcg (200 unit) tablet 1 tab PO DAILY Daliresp 500 mcg tablet 500 mcg PO DAILY Mucinex 600 mg tablet extended release 12hr 1,200 mg PO BID PRN (Reason: Congestion) Trelegy Ellipta 100-62.5-25 mcg blister with device 1 inh inhalation DAILY Discharge Orders: Discharge ED (Routine); Ordered 04/14/22 Ordered By: Pavan Rendon Referrals: Trish Linares FNP [Primary Care Provider] - Discharge Diet: Usual diet Discharge Activity: Increase activity as tolerated Patient Instructions: Superficial Thrombophlebitis (ED) Activity Restrictions/Additional Instructions: Activity as tolerated. Use acetaminophen for pain. Take azithromycin as directed. Follow-up with primary care for further instruction. Return to ER for new concerns. Coding Level of Care Code ED Internet Sales Director for Albert Fwd Exam Detailed
[2022-04-14] MEDS: acetaminophen 500 mg Tablet 1000 MG PO (19:03)
[2022-04-14 19:11] VITALS: BP 187/78; PULSE 71; RESP 18; TEMP 36.8; O2SAT 98
[2022-04-14 20:33] VITALS: BP 156/70; PULSE 68; RESP 18; O2SAT 99
[2022-04-14 21:55] VITALS: BP 170/93; PULSE 69; RESP 18; O2SAT 99
== END 2022-04-14 21:56 | disposition home or self-care (01) ==
PROVIDERS: Emergency Provider Nurse Practitioner Family; PCP Nurse Practitioner Family
DX: I80.02 Phlebitis and thrombophlebitis of superficial vessels of left lower extremity (principal); Z79.82 Long term (current) use of aspirin; I25.10 Atherosclerotic heart disease of native coronary artery without angina pectoris; I10 Essential (primary) hypertension; E78.2 Mixed hyperlipidemia; Z87.891 Personal history of nicotine dependence
CPT/HCPCS: 93971; 99284

== ENCOUNTER 2022-07-29 14:19 | Outpatient (CLI) | payer MEDICARE, MEDICAID, SELFPAY ==
[2022-07-29] MEDS: iohexol 350 mg/mL 100 mL Btl PO (14:31)
--- NOTE | 2022-07-29 15:00 | CT_ITS ---
WS: [email or web address] EXAMINATION: CT abdomen pelvis w con* [id number] REASON FOR EXAM: R10.9 - Unspecified abdominal pain COMPARISON: 03/08/2021 ORDER DATE: 07/29/2022 2:30 PM TOTAL EXAM DLP: 1112.[address] scans at [facility] use at least one of these dose optimization techniques: automated e xposure control; mA and/or kV adjustment per patient size (includes targeted exams where dose is matc hed to clinical indication); or iterative reconstruction. TECHNIQUE: Transaxial imaging through the abdomen and pelvis was performed with 2-D reformats followi ng the intravenous administration of Omnipaque 350 95 ml FINDINGS: There are no acute changes in the visualized lung bases. There is no sign of pneumoperitoneum. The liver was unremarkable except for trace pneumobilia much less than on previous study. Common bile duct stent no longer present. The gallbladder has been resected. The spleen and pancreas were unrema rkable. There is a normal appearance of the right adrenal. There is hyperplasia of the left adrenal including a 2 cm adenoma unchanged. Bilateral renal cysts largest on the right unchanged.. The small bowel pattern is not significantly dilated and there are no significant air-fluid levels. There is a normal-appearing appendix. Oral contrast opacifies the bowel. Mild diverticulosis. . There is no ascites or increased cul-de-sac fluid. The urinary bladder as imaged is unremarkable. Prior hysterectomy. There are degenerative disc and spine changes with generalized spondylosis. Disc degeneration and vac uum disc change most prominently at L5-S1.. CT/CT abdomen pelvis w con* [id number] IMPRESSION: Trace pneumobilia. Ancillary findings as noted above unchanged and stable including left adrenal n odule and bilateral renal cysts.
[2022-07-29] MEDS: iohexol 350 mg/mL 500 mL Btl (per mL) PO (16:01)
== END 2022-07-29 14:20 | disposition home or self-care (01) ==
LOC: RAD 14:23
PROVIDERS: PCP Nurse Practitioner Family; Visit Provider Nurse Practitioner Family
DX: R10.9 Unspecified abdominal pain (principal)
CPT/HCPCS: 74177; 80053; 80061; 82306; 82607; 83036; 83735; 84443; 85025; Q9967

== ENCOUNTER 2022-09-03 13:41 | Outpatient (CLI) | payer MEDICARE, MEDICAID, SELFPAY ==
--- NOTE | 2022-09-03 13:48 | MM_ITS ---
WS: [email or web address] BILATERAL 2D DIGITAL SCREENING MAMMOGRAPHY WITH CAD CLINICAL INFORMATION: Z12.39 - Encounter for other screening for malignant neop... HISTORY: Screening mammogram. Yellow LEFT nipple discharge COMPARISON: October 18, 2019 TECHNIQUE: Bilateral CC and MLO views. FINDINGS: The breasts are composed of nodular heterogeneous fibroglandular density tissue, which can limit the detection of small underlying mass lesions. No suspicious mass, asymmetry, calcifications, or archite ctural distortion. No evidence of malignancy. Vascular calcification. MM/[place] [id number] IMPRESSION: BI-RADS: 2-Benign FOLLOW UP: 1 Year Follow-up Recommend return to annual screening mammography.
== END 2022-09-03 13:42 | disposition home or self-care (01) ==
PROVIDERS: PCP Nurse Practitioner Family; Visit Provider Nurse Practitioner Family
DX: Z12.31 Encounter for screening mammogram for malignant neoplasm of breast (principal)
CPT/HCPCS: 77067

== ENCOUNTER 2022-11-18 12:50 | Outpatient (CLI) | payer MEDICARE, MEDICAID, SELFPAY ==
[2022-11-18 13:11] VITALS: PULSE 78; RESP 20; O2SAT 92
[2022-11-18] MEDS: albuterol 2.5 mg/3 mL Neb INHALATION (13:11)
[2022-11-18 13:16] VITALS: PULSE 75
== END 2022-11-18 12:51 | disposition home or self-care (01) ==
LOC: RT 12:52
PROVIDERS: PCP Nurse Practitioner Family; Visit Provider Internal Medicine Pulmonary Disease
DX: Z87.891 Personal history of nicotine dependence (principal); J44.9 Chronic obstructive pulmonary disease, unspecified
CPT/HCPCS: 94060; 94618; 94729; J7613

== ENCOUNTER 2022-12-05 08:25 | Outpatient (CLI) | payer MEDICARE, MEDICAID, SELFPAY ==
--- NOTE | 2022-12-05 08:37 | CT_ITS ---
WS: [email or web address] LDCT LUNG CANCER SCREENING HISTORY: PERSONAL HISTORY OF NICOTINE DEPENDENCE TECHNIQUE: Axial imaging performed from the apices to 1 cm below the costophrenic angles. Coronal and sagittal reformats are submitted with axial MIP series. All CT scans at [facility] use at least one of these dose optimization techniques: automated exposure control; mA and/or kV adjustment per patient size (includes targeted exams where dose is matched to clinical indication); or iterativ e reconstruction. DLP: 209.09 mGy.cm DIvol: Mean CTDIvol: 5.40 (mGy) COMPARISON: 04/24/2020 Diagnostic quality: Satisfactory Lungs: Mild breathing artifact. Areas of atelectasis. No nodule or mass. No endobronchial lesions. Heart: Normal size heart with no pericardial effusion.. Other findings: Mild atherosclerosis aorta. No adenopathy identified. 2.2 cm LEFT adrenal adenoma. T1 2 20% compression fracture, chronic. CT/CT lung screening [id number] IMPRESSION: LUNG-RADS: 1-Negative FOLLOW UP: 12 Month: Continue annual screening with LDCT OTHER FINDINGS (S MODIFIER): None.
== END 2022-12-05 08:26 | disposition home or self-care (01) ==
PROVIDERS: PCP Nurse Practitioner Family; Visit Provider Internal Medicine Pulmonary Disease
DX: Z12.2 Encounter for screening for malignant neoplasm of respiratory organs (principal); J96.11 Chronic respiratory failure with hypoxia; Z87.891 Personal history of nicotine dependence
CPT/HCPCS: 71271

== ENCOUNTER → 2022-12-22 11:40 | Outpatient (BNVA) | payer MEDICARE, MEDICAID, SELFPAY | PROVIDERS: PCP Nurse Practitioner Family; Visit Provider Nurse Practitioner Family | DX: E78.2 Mixed hyperlipidemia (principal); E55.9 Vitamin D deficiency, unspecified; R73.9 Hyperglycemia, unspecified; I10 Essential (primary) hypertension; D64.9 Anemia, unspecified; R42 Dizziness and giddiness | CPT/HCPCS: 80053; 80061; 82306; 83036; 83735; 84443; 85025 ==

== ENCOUNTER 2023-02-12 14:40 | Outpatient (CLI) | payer MEDICARE, MEDICAID, SELFPAY ==
--- NOTE | 2023-02-12 14:47 | XR_ITS ---
WS: [id number] DEXA (DUAL ENERGY X-RAY ABSORPTIOMETRY) Bone mineral density was performed using a [employer] machine. HISTORY: AGE RELATED OSTEOPOROSIS COMPARISON: 05/29/2014 Lumbar spine BMD (L1-L4): 1.041 g/cm2 T score: -1.2 Z score: -0.7 Total hip BMD: Left: 0.901 g/cm2. T score: -0.8 Z score: -0.3 Right: 0.914 g/cm2. T score: -0.7 Z score: -0.2 10 year probability of a major osteoporotic fracture is 21.7%. Compared to the prior study from 05/29/2014. Lumbar spine bone mineral density has increased by 9.0%. Bilateral hips bone mineral density has increased by 1.2%. XR/XR DEXA axial skeleton* [id number] IMPRESSION: OSTEOPENIA based upon the WHO classification for females. Significant increase in bone mineral density within the lumbar spine since the prior study.
== END 2023-02-12 14:41 | disposition home or self-care (01) ==
PROVIDERS: PCP Nurse Practitioner Family; Visit Provider Nurse Practitioner Family
DX: M81.0 Age-related osteoporosis without current pathological fracture (principal)
CPT/HCPCS: 77080

== ENCOUNTER → 2023-07-10 12:10 | Outpatient (BNVA) | payer MEDICARE, MEDICAID, SELFPAY | PROVIDERS: PCP Nurse Practitioner Family; Visit Provider Nurse Practitioner Family | DX: I10 Essential (primary) hypertension (principal); E78.2 Mixed hyperlipidemia; E55.9 Vitamin D deficiency, unspecified | CPT/HCPCS: 80053; 80061; 82306; 82607; 83036; 83735; 84443; 85025 ==

== ENCOUNTER → 2023-10-27 14:51 | Outpatient (BNVA) | payer MEDICARE, MEDICAID, SELFPAY | PROVIDERS: PCP Nurse Practitioner Family; Visit Provider Nurse Practitioner Family | DX: I10 Essential (primary) hypertension (principal); R73.9 Hyperglycemia, unspecified; E55.9 Vitamin D deficiency, unspecified | CPT/HCPCS: 80053; 80061; 82306; 82607; 83036; 83735; 84443; 85025; 87070; 87075; 87205 ==

== ENCOUNTER 2023-10-30 12:35 | Outpatient (CLI) | payer MEDICARE, MEDICAID, SELFPAY ==
--- NOTE | 2023-10-30 13:15 | USCV_ITS ---
Michelle Walton Age: 68 Gender: F : 1955 Exam Date: 10/30/2023 13:10 Ordering Phys: Trish Linares FACILITY PLANNER FACILITY PLANNER Technologist: GENO Exam Location: [facility] [place] Indication: LE Swelling HISTORY: Lower extremity swelling. PROCEDURES: Venous duplex imaging was performed in only the left lower extremity. The following venous structures were evaluated: common femoral vein, profunda vein, proximal portion of the greater saphenous vein, superficial femoral vein, and the popliteal vein. In addition, the posterior tibial and peroneal trunk were evaluated. Serial compression, augmentation maneuvers, and spectral Doppler flow evaluation were performed. FINDINGS: No evidence of DVT seen in any vessel visualized at this time. CONCLUSIONS No evidence of left lower extremity DVT. Tevin Weaver MD (Electronically Signed) Final Date: 30 October 2023 14:34 S
== END 2023-10-30 12:36 | disposition home or self-care (01) ==
LOC: RAD 12:36
PROVIDERS: PCP Nurse Practitioner Family; Visit Provider Nurse Practitioner Family
DX: M79.89 Other specified soft tissue disorders (principal)
CPT/HCPCS: 93971

== ENCOUNTER 2023-11-10 14:47 | Outpatient (CLI) | payer MEDICARE, MEDICAID, SELFPAY ==
--- NOTE | 2023-11-10 15:00 | MM_ITS ---
WS: [email or web address] BILATERAL 3D TOMOSYNTHESIS DIGITAL SCREENING MAMMOGRAPHY WITH CAD CLINICAL INFORMATION: Z12.39 - Encounter for other screening for malignant neop... HISTORY: Screening mammogram. No current complaints. COMPARISON: 2022 TECHNIQUE: Bilateral CC and MLO views. FINDINGS: The breasts are composed of heterogeneous fibroglandular density tissue, which can limit the detectio n of small underlying mass lesions. No suspicious mass, asymmetry, calcifications, or architectural d istortion. No evidence of malignancy. Vascular calcifications. A few incidental punctate calcificatio ns. IMPRESSION: MM/[place] [id number] BI-RADS: 2-Benign FOLLOW UP: 1 Year Follow-up Recommend return to annual screening mammography.
== END 2023-11-10 14:48 | disposition home or self-care (01) ==
LOC: MOBLMAM 15:00
PROVIDERS: PCP Nurse Practitioner Family; Visit Provider Nurse Practitioner Family
DX: Z12.31 Encounter for screening mammogram for malignant neoplasm of breast (principal)
CPT/HCPCS: 77063; 77067

== ENCOUNTER → 2023-12-04 10:58 | Outpatient (BNVA) | payer MEDICARE, MEDICAID, SELFPAY | PROVIDERS: PCP Nurse Practitioner Family; Visit Provider Nurse Practitioner Family | DX: R05.9 Cough, unspecified (principal); R50.9 Fever, unspecified | CPT/HCPCS: 87400; 87426 ==

== ENCOUNTER 2023-12-07 09:30 | Outpatient (CLI) | payer MEDICARE, MEDICAID, SELFPAY ==
--- NOTE | 2023-12-07 09:34 | USCV_ITS ---
Michelle Walton Age: 68 Gender: F : 1955 Exam Date: 12/07/2023 09:46 Ordering Phys: Trish Linares CLAY TEMPERER CLAY TEMPERER Technologist: GENO Exam Location: [facility] [place] Indication: PAD Risk Factors: Previous Vascular Surgery: RIGHT LEFT BP: 142.0 / 68.00 BP: 157.0/ 75.00 0 0 Waveform Velocity (cm/s) Velocity (cm/s) Waveform Triphasic 95.6 Iliac Prox 89.8 Triphasic Triphasic 117.6 Iliac Mid 79.0 Triphasic Triphasic 125.1 Iliac Distal 93.0 Triphasic Triphasic 145.0 MUSIC ENGRAVER 117.0 Triphasic Triphasic 97.0 SFA Prox 91.0 Triphasic Triphasic 109.0 SFA Mid 93.0 Triphasic Triphasic SFA Dist Triphasic 164.0 99.0 Triphasic 55.0 POP 67.0 Triphasic Triphasic 64.0 PIPE CAULKER 41.0 Triphasic Triphasic 58.0 DPA 52.0 Triphasic 1.1 NICOLE FINDINGS The left ankle vessels are noncompressible. Resting NICOLE 1.1 on the right side. CONCLUSIONS 1. Normal resting NICOLE on the right side with a normal arterial Doppler waveform, suggesting no significant arterial obstruction. 2. Normal arterial Doppler waveforms and velocities on the left side with a noncompressible vessels suggesting some features of arterial sclerosis. Possibly no significant arterial obstruction Dr Mj Bond MD [facility] (Electronically Signed) Final Date: 07 December 2023 13:13 S
== END 2023-12-07 09:31 | disposition home or self-care (01) ==
LOC: RAD 09:31
PROVIDERS: PCP Nurse Practitioner Family; Visit Provider Nurse Practitioner Family
DX: I73.9 Peripheral vascular disease, unspecified (principal)
CPT/HCPCS: 93925

== ENCOUNTER → 2023-12-18 11:21 | Outpatient (BNVA) | payer MEDICARE, MEDICAID, SELFPAY | PROVIDERS: PCP Nurse Practitioner Family; Visit Provider Nurse Practitioner Family | DX: R10.9 Unspecified abdominal pain (principal) | CPT/HCPCS: 81000 ==

== ENCOUNTER 2024-02-18 08:30 | Outpatient (CLI) | payer MEDICARE, MEDICAID, SELFPAY ==
--- NOTE | 2024-02-18 09:00 | CT_ITS ---
WS: [email or web address] LDCT LUNG CANCER SCREENING TECHNIQUE: Noncontrast CT of the chest with coronal and sagittal reformatted images. CLINICAL INFORMATION: Z87.891 - Personal history of nicotine dependence COMPARISON: CT 12/05/22 DLP: 184.01 mGy.cm DIvol: Mean CTDIvol: 5.00 (mGy) All CT scans at [facility] use at least one of these dose optimization techniques: automat ed exposure control; mA and/or kV adjustment per patient size (includes targeted exams where dose is matched to clinical indication); or iterative reconstruction. FINDINGS: Hazy nodular opacity RIGHT upper lobe anteromedially measuring 6 mm is new from previous. T his may be inflammatory but indeterminate. Recommend 6-month follow-up. Subsegmental atelectasis RIGH T middle lobe. Hazy atelectasis in the lingula. Small nodule RIGHT middle lobe along the fissure delilah uring 5 mm. Stable LEFT adrenal adenoma. Aortic calcification. No adenopathy. Chronic T12 compression fracture wi th mild compression of the superior endplate unchanged. Hypertrophic changes thoracic spine. Moderate thoracic kyphosis. Cardiomegaly. Coronary calcification. Normal caliber thoracic aorta. No axillary lymphadenopathy. CT/CT lung screening [id number] IMPRESSION: LUNG-RADS: 3-Probably Benign FOLLOW UP: 6 Month LDCT
== END 2024-02-18 08:31 | disposition home or self-care (01) ==
LOC: RAD 08:30
PROVIDERS: PCP Nurse Practitioner Family; Visit Provider Internal Medicine Pulmonary Disease
DX: Z12.2 Encounter for screening for malignant neoplasm of respiratory organs (principal); Z87.891 Personal history of nicotine dependence; R91.1 Solitary pulmonary nodule; J98.11 Atelectasis; D35.02 Benign neoplasm of left adrenal gland; I70.0 Atherosclerosis of aorta; S22.080D Wedge compression fracture of T11-T12 vertebra, subsequent encounter for fracture with routine healing; M40.204 Unspecified kyphosis, thoracic region; I51.7 Cardiomegaly; I25.84 Coronary atherosclerosis due to calcified coronary lesion
CPT/HCPCS: 71271

== ENCOUNTER → 2024-02-22 11:42 | Outpatient (BNVA) | payer MEDICARE, MEDICAID, SELFPAY | PROVIDERS: PCP Nurse Practitioner Family; Visit Provider Nurse Practitioner Family | DX: I10 Essential (primary) hypertension (principal); E55.9 Vitamin D deficiency, unspecified; R91.1 Solitary pulmonary nodule | CPT/HCPCS: 80053; 80061; 81000; 82306; 82607; 83036; 84443; 85025 ==

== ENCOUNTER → 2024-03-18 09:51 | Outpatient (BNVA) | payer MEDICARE, MEDICAID, SELFPAY | PROVIDERS: PCP Nurse Practitioner Family; Visit Provider Nurse Practitioner Family | DX: R10.31 Right lower quadrant pain (principal) | CPT/HCPCS: 80053; 81000; 85025 ==

== ENCOUNTER 2024-03-23 14:30 | Outpatient (CLI) | payer MEDICARE, MEDICAID, SELFPAY ==
--- NOTE | 2024-03-23 14:30 | CTR_ITS ---
PROCEDURE INFORMATION: Exam: CT Abdomen And Pelvis With Contrast Exam date and time: 03/23/2024 3:35 PM Age: 69 years old Clinical indication: Abdominal pain; Localized; Right lower quadrant (rlq); Prior surgery; Surgery date: 6+ months; Surgery type: Gb, hyst; Patient HX: Constipation; Additional info: R10.31 - right lower quadrant pain TECHNIQUE: Imaging protocol: Computed tomography of the abdomen and pelvis with contrast. Radiation optimization: All CT scans at this facility use at least one of these dose optimization techniques: automated exposure control; mA and/or kV adjustment per patient size (includes targeted exams where dose is matched to clinical indication); or iterative reconstruction. Contrast material: OMNI 350; Contrast volume: 100 ml; Contrast route: INTRAVENOUS (IV); COMPARISON: CT abdomen pelvis w con* [id number] 07/29/2022 3:51 PM RADIATION DOSE METRICS: Total DLP (mGy-cm): 1094.6 FINDINGS: Coronary arteries: Coronary artery calcifications noted. Liver: The liver is normal in size and contour. Gallbladder and biliary ducts: The gallbladder is surgically absent. Trace pneumobilia again noted. Pancreas: The pancreas appears normal. Spleen: The spleen appears normal. Adrenal glands: 2.5 cm left adrenal nodule again noted. The right adrenal gland is unremarkable. Kidneys and ureters: Simple appearing, fluid density cysts noted in the kidneys bilaterally. The kidneys enhance symmetrically and empty into non-dilated ureters. Stomach and bowel: The stomach appears unremarkable. The small bowel loops are not abnormally dilated. The large bowel loops are not abnormally dilated. Colonic diverticulosis without signs of acute diverticulitis. Appendix: The appendix appears normal. Intraperitoneal space: No ascites or significant fluid collection. Vasculature: The aorta is nonaneurysmal. The IVC appears normal. Lymph nodes: There are no enlarged lymph nodes. Urinary bladder: The urinary bladder is not well distended, therefore not well evaluated. Reproductive: The uterus is surgically absent. Bones/joints: Multilevel degenerative changes in the spine. Grade 1 anterolisthesis of L5 on S1. Chronic anterior wedging at T12. Soft tissues: Unremarkable. CT/CT abdomen pelvis w con* [id number] IMPRESSION: 1. No acute abdominopelvic abnormality identified. 2. Trace pneumobilia again noted. COMMENTS: Consistent with the [employer]'s Incidental Findings Committee white paper (J Am Eliel Radiol 2018): Any incidental renal lesion less than 1 cm or classified as too small to characterize, or any incidental cystic renal lesion characterized as simple-appearing, is likely benign. No follow-up imaging is recommended for these lesions per consensus recommendations based on imaging criteria.
[2024-03-23] MEDS: iohexol 350 mg/mL 500 mL Btl (per mL) PO (15:22)
[2024-03-23] MEDS: iohexol 350 mg/mL 500 mL Btl (per mL) IV (15:47)
== END 2024-03-23 14:31 | disposition home or self-care (01) ==
PROVIDERS: PCP Nurse Practitioner Family; Visit Provider Nurse Practitioner Family
DX: M51.36 Other intervertebral disc degeneration, lumbar region (principal); M43.16 Spondylolisthesis, lumbar region; I25.84 Coronary atherosclerosis due to calcified coronary lesion; K57.90 Diverticulosis of intestine, part unspecified, without perforation or abscess without bleeding; E27.9 Disorder of adrenal gland, unspecified; R91.8 Other nonspecific abnormal finding of lung field; R10.31 Right lower quadrant pain; Z90.710 Acquired absence of both cervix and uterus; Z90.49 Acquired absence of other specified parts of digestive tract
CPT/HCPCS: 74177; 80053; 81000; 85025; Q9967

== ENCOUNTER → 2024-04-26 12:13 | Outpatient (BNVA) | payer MEDICARE, MEDICAID, SELFPAY | PROVIDERS: PCP Nurse Practitioner Family; Referring Provider Nurse Practitioner Family; Visit Provider Internal Medicine Critical Care Medicine | DX: J45.50 Severe persistent asthma, uncomplicated (principal); Z79.52 Long term (current) use of systemic steroids; J96.11 Chronic respiratory failure with hypoxia; J96.12 Chronic respiratory failure with hypercapnia; J43.2 Centrilobular emphysema; J98.4 Other disorders of lung; E66.9 Obesity, unspecified; K21.9 Gastro-esophageal reflux disease without esophagitis; R91.1 Solitary pulmonary nodule; E66.01 Morbid (severe) obesity due to excess calories; Z68.43 Body mass index [BMI] 50.0-59.9, adult; R29.898 Other symptoms and signs involving the musculoskeletal system; Z71.89 Other specified counseling; Z71.82 Exercise counseling | CPT/HCPCS: 99214 ==

== ENCOUNTER 2024-08-30 08:02 | Outpatient (CLI) | payer MEDICARE, MEDICAID, SELFPAY ==
--- NOTE | 2024-08-30 08:00 | CTR_ITS ---
PROCEDURE INFORMATION: Exam: CT Chest Without Contrast; Diagnostic Exam date and time: 08/30/2024 8:18 AM Age: 69 years old Clinical indication: Condition or disease; Lung condition and disease; Pulmonary nodule, solitary; Additional info: R91.1 - solitary pulmonary nodule TECHNIQUE: Imaging protocol: Diagnostic computed tomography of the chest without contrast. Radiation optimization: All CT scans at this facility use at least one of these dose optimization techniques: automated exposure control; mA and/or kV adjustment per patient size (includes targeted exams where dose is matched to clinical indication); or iterative reconstruction. COMPARISON: CT lung screening [id number] 02/18/2024 8:45 AM RADIATION DOSE METRICS: Total DLP (mGy-cm): 697.54 FINDINGS: Lungs: Ill-defined nodule in the superomedial right upper lobe visible on 02/18/2024 is no longer present. There is mild subpleural scarring and atelectasis in the inferior right upper lobe, stable since 02/18/2024. There is mild subpleural scarring and atelectasis in the lingula, stable since 02/18/2024. There is no consolidation. Pleural spaces: 5 mm nodule along the minor fissure is stable since 02/18/2024. There is no pleural effusion or pneumothorax. Heart: Heart size is normal. There is no pericardial effusion. Coronary arteries: There is moderate coronary artery calcification. Lymph nodes: There is no mediastinal or hilar lymphadenopathy. Vasculature: The aorta is unremarkable. There is no aneurysm. Gallbladder and biliary ducts: Pneumobilia is visible in the left lobe, suggesting prior sphincterotomy. Adrenal glands: There is hypertrophy of the left adrenal gland and a 2.7 mm cm left adrenal low-density nodule consistent with a benign lipid rich adenoma. Bones/joints: Mild chronic T12 superior endplate compression fracture is stable since 02/18/2024. No acute osseous findings. Soft tissues: The extrathoracic soft tissues are unremarkable. CT/CT chest wo con [id number] IMPRESSION: 1. Interval resolution of right upper lobe pulmonary nodule since 02/18/2024. 2. 5 mm minor fissural nodule is stable since 02/18/2024 and is consistent with a benign intrapulmonary lymph node. No follow-up imaging is necessary. 3. Incidental findings above. COMMENTS: Consistent with the [employer]'s Incidental Findings Committee white paper (J Am Eliel Radiol 2017): Any incidental adrenal lesion less than 1 cm is likely benign. No follow-up imaging is recommended for these lesions per consensus recommendations based on imaging criteria. Further lab evaluation could be pursued if warranted based on clinical findings.
== END 2024-08-30 08:03 | disposition home or self-care (01) ==
LOC: RAD 08:05
PROVIDERS: PCP Nurse Practitioner Family; Visit Provider Nurse Practitioner Family
DX: R91.1 Solitary pulmonary nodule (principal); J98.4 Other disorders of lung; J98.11 Atelectasis; I25.10 Atherosclerotic heart disease of native coronary artery without angina pectoris; R93.3 Abnormal findings on diagnostic imaging of other parts of digestive tract; R59.9 Enlarged lymph nodes, unspecified; Z87.81 Personal history of (healed) traumatic fracture; E27.8 Other specified disorders of adrenal gland
CPT/HCPCS: 71250

== ENCOUNTER 2024-09-20 10:10 | Outpatient (CLI) | payer OTHER, MEDICAID, SELFPAY ==
[2024-09-20 10:34] VITALS: PULSE 79; RESP 18; O2SAT 94
[2024-09-20] MEDS: albuterol 2.5 mg/3 mL Neb INHALATION (10:34)
[2024-09-20 10:38] VITALS: PULSE 81
== END 2024-09-20 10:11 | disposition home or self-care (01) ==
LOC: RT 10:17
PROVIDERS: PCP Nurse Practitioner Family; Visit Provider Nurse Practitioner Family
DX: J44.9 Chronic obstructive pulmonary disease, unspecified (principal)
CPT/HCPCS: 94060; 94729; J7613

== ENCOUNTER → 2024-10-06 13:29 | Outpatient (BNVA) | payer OTHER, MEDICAID, SELFPAY | PROVIDERS: Family Provider Nurse Practitioner Family; PCP Nurse Practitioner Family; Visit Provider Nurse Practitioner Family | DX: I10 Essential (primary) hypertension (principal); E55.9 Vitamin D deficiency, unspecified; E78.2 Mixed hyperlipidemia; R73.9 Hyperglycemia, unspecified | CPT/HCPCS: 80053; 80061; 82306; 82607; 82746; 83036; 83735; 84443; 85025 ==

== ENCOUNTER 2024-12-07 14:41 | Outpatient (CLI) | payer OTHER, MEDICAID, SELFPAY ==
--- NOTE | 2024-12-07 14:40 | MM_ITS ---
WS: [email or web address] BILATERAL 3D TOMOSYNTHESIS DIGITAL SCREENING MAMMOGRAPHY WITH CAD CLINICAL INFORMATION: Z12.39 - Encounter for other screening for malignant neop... HISTORY: Screening mammogram. No current complaints. COMPARISON: 2023 TECHNIQUE: Bilateral CC and MLO views. FINDINGS: The breasts are composed of heterogeneous fibroglandular density tissue, which can limit the detection of small underlying mass lesions. No suspicious mass, asymmetry, calcifications, or architectural distortion. No evidence of malignancy. Vascular calcification. A few incidental intramammary lymph nodes. MM/MM [facility] tomosynthesis [id number] IMPRESSION: DENSITY: The breasts are heterogeneously dense, which may obscure small masses. BI-RADS: 2 - Benign FOLLOW UP: 1 Year Follow-up Recommend return to annual screening mammography.
== END 2024-12-07 14:42 | disposition home or self-care (01) ==
PROVIDERS: Family Provider Nurse Practitioner Family; PCP Nurse Practitioner Family; Visit Provider Nurse Practitioner Family
DX: Z12.31 Encounter for screening mammogram for malignant neoplasm of breast (principal); R92.333 Mammographic heterogeneous density, bilateral breasts; R92.1 Mammographic calcification found on diagnostic imaging of breast; R59.0 Localized enlarged lymph nodes
CPT/HCPCS: 77063; 77067

== ENCOUNTER 2024-12-29 20:00 | Outpatient (CLI) | payer OTHER, MEDICAID, SELFPAY | END 2024-12-29 20:01 | disposition home or self-care (01) | LOC: SLEEP 23:45 | PROVIDERS: Family Provider Nurse Practitioner Family; PCP Nurse Practitioner Family; Visit Provider Family Medicine | DX: G47.33 Obstructive sleep apnea (adult) (pediatric) (principal); G47.36 Sleep related hypoventilation in conditions classified elsewhere | CPT/HCPCS: 95810 ==

== ENCOUNTER → 2025-04-19 09:52 | Outpatient (BNVA) | payer OTHER, MEDICAID, SELFPAY | PROVIDERS: Family Provider Nurse Practitioner Family; PCP Nurse Practitioner Family; Visit Provider Nurse Practitioner Family | DX: L28.0 Lichen simplex chronicus (principal); L20.89 Other atopic dermatitis; L57.8 Other skin changes due to chronic exposure to nonionizing radiation; D22.39 Melanocytic nevi of other parts of face; L81.4 Other melanin hyperpigmentation | CPT/HCPCS: 99214 ==

== ENCOUNTER → 2025-05-08 12:59 | Outpatient (BNVA) | payer OTHER, MEDICAID, SELFPAY | PROVIDERS: Family Provider Nurse Practitioner Family; PCP Nurse Practitioner Family; Visit Provider Nurse Practitioner Family | DX: M54.50 Low back pain, unspecified (principal); M47.816 Spondylosis without myelopathy or radiculopathy, lumbar region | CPT/HCPCS: 72100 ==

== ENCOUNTER → 2025-05-31 10:04 | Outpatient (BNVA) | payer OTHER, MEDICAID, SELFPAY | PROVIDERS: Family Provider Nurse Practitioner Family; PCP Nurse Practitioner Family; Visit Provider Nurse Practitioner Family | DX: I10 Essential (primary) hypertension (principal); R73.9 Hyperglycemia, unspecified; E78.2 Mixed hyperlipidemia; E55.9 Vitamin D deficiency, unspecified | CPT/HCPCS: 80053; 80061; 82306; 82607; 83036; 83735; 84443; 85025 ==

== ENCOUNTER 2025-06-28 13:01 | Outpatient (CLI) | payer OTHER, MEDICAID, SELFPAY ==
--- NOTE | 2025-06-28 13:30 | XR_ITS ---
WS: [email or web address] SCREENING DEXA SCAN [employer] CLINICAL INFORMATION: M81.0 - Age-related osteoporosis without current patholog... COMPARISON: 2022 FINDINGS: The L1-L4 bone mineral density measures 1.081 g/cm2. This corresponds to a T score score of -0.8 and Z score of -0.3. Left femoral neck bone mineral density measures 0.916 g/cm2. This corresponds to a T score of -0.7 and Z score of 0.0. Right femoral neck bone mineral density measures 0.922 g/cm2. This corresponds to a T score -0.7of and Z score of 0.0. Mean femoral neck bone mineral density measures 0.919 g/cm2. This corresponds to a T score of -0.7 and Z score of 0.0. XR/XR DEXA axial skeleton* [id number] IMPRESSION: Normal bone mineralization. Patient's FRAX calculated 10 year probability for major osteoporotic fracture i s 19.5% and osteoporotic hip fracture is 2.9%. Bone density lumbar spine increased 3.8% Bone density femoral necks increased 1.3%
== END 2025-06-28 13:02 | disposition home or self-care (01) ==
LOC: RAD 13:02
PROVIDERS: Family Provider Nurse Practitioner Family; PCP Nurse Practitioner Family; Visit Provider Nurse Practitioner Family
DX: Z13.820 Encounter for screening for osteoporosis (principal); M81.0 Age-related osteoporosis without current pathological fracture
CPT/HCPCS: 77080

== ENCOUNTER → 2025-07-04 14:40 | Outpatient (BNVA) | payer OTHER, MEDICAID, SELFPAY | PROVIDERS: Family Provider Nurse Practitioner Family; PCP Nurse Practitioner Family; Visit Provider Nurse Practitioner Family | DX: M54.9 Dorsalgia, unspecified (principal) | CPT/HCPCS: 80048 ==

== ENCOUNTER → 2025-07-12 10:00 | Outpatient (BNVA) | payer OTHER, MEDICAID, SELFPAY | PROVIDERS: Family Provider Nurse Practitioner Family; PCP Nurse Practitioner Family; Visit Provider Nurse Practitioner Family | DX: M54.50 Low back pain, unspecified (principal) | CPT/HCPCS: 81000 ==

== ENCOUNTER 2025-07-14 09:11 | Observation (INO) | payer MEDICARE, MEDICAID, SELFPAY ==
[2025-07-14] VITALS (9 sets, daily range): BP systolic 128–183; BP diastolic 74–92; PULSE 58–97; RESP 16–18; TEMP 36.6–36.8; O2SAT 94–98; BMI 56.2
--- NOTE | 2025-07-14 09:15 | CT_ITS ---
WS: [id number] CT LUMBAR SPINE TECHNIQUE: Noncontrast CT of the lumbar spine with coronal and sagittal reformatted images. CLINICAL INFORMATION: Low back pain right leg pain, inability to walk DLP: 894.[address] scans at [facility] use at least one of these dose optimization techniques: automated exposure control; mA and/or kV adjustment per patient size (includes targeted exams where dose is matched to clinical indication); or iterative reconstruction. FINDINGS: Lumbar. Acute compression fracture inferior endplate L3 with mild retropulsion and moderate central canal stenosis. Severe central canal stenosis at the L4 level with narrowing of the thecal sac mainly due to facet arthropathy with ligamentum flavum hypertrophy. Severe central canal stenosis L4-5 due to disc bulge with facet arthropathy and ligamentum flavum hypertrophy. Mild central canal stenosis L2-3. Grade 1 anterolisthesis L5 on S1. Retrolisthesis L3 on L4 and L4 on L5. LEFT adrenal nodularity compatible with adenomas. Renal cysts similar to previous CT abdomen pelvis. Cholecystectomy clips. CT/CT lumbar spine wo con* [id number] IMPRESSION: 1. Mild acute compression fracture inferior endplate L3 with retropulsion of t he posterior inferior cortex. This results in moderate central canal stenosis. 2. Chronic appearing severe central canal stenosis at the L4-5 level similar t o the prior CT abdomen pelvis in 2023. Notified Yang Nichols DO at 07/14/2025 11:32 AM.
--- NOTE | 2025-07-14 10:45 | W.ED.BACK ---
HPI - Back Pain/Injury General: Chief Complaint: Back Pain/Injury Stated Complaint: Back pain Can't walk R leg pain Time Seen by Provider: 07/14/25 10:35 History of Present Illness: 70-year-old female presents to the emergency room with back pain and Right leg pain stating she cannot walk due to pain and weakness in her right leg. No recent trauma or falls. She denies dysuria urgency or frequency no fever sweats or chills. No chest pain no shortness of breath. She has not had any fecal incontinence urinary retention no saddle paresthesias. Associated symptoms: Deny abdominal pain, chills, dysuria, fever(s) or urinary urgency Related Data Home Medications ?Medication ?Instructions ?Recorded ?Confirmed albuterol sulfate 2.5 mg/3 mL 2.5 mg continuous nebulization Q6H 07/14/25 07/14/25 (0.083 %) solution for nebulization PRN Shortness Of Breath albuterol sulfate 90 mcg/actuation 2 puff inhalation Q4H PRN 07/14/25 07/14/25 aerosol inhaler Shortness Of Breath aspirin 81 mg tablet,delayed 81 mg PO DAILY 07/14/25 07/14/25 release atorvastatin 10 mg tablet 10 mg PO DAILY 07/14/25 07/14/25 calcium 500 mg (as 1 tab PO DAILY 07/14/25 07/14/25 carbonate)-vitamin D3 5 mcg (200 unit) tablet (Oyster Shell Calcium-Vitamin D3) duloxetine 30 mg capsule,delayed 30 mg PO DAILY 07/14/25 07/14/25 release ergocalciferol (vitamin D2) 1,250 50,000 unit PO Q7D 07/14/25 07/14/25 mcg (50,000 unit) capsule ferrous sulfate 325 mg (65 mg 325 mg PO BID 07/14/25 07/14/25 iron) tablet (FeroSul) furosemide 20 mg tablet 10 mg PO BID 07/14/25 07/14/25 gabapentin 100 mg capsule 200 mg PO BID 07/14/25 07/14/25 hydrochlorothiazide 25 mg tablet 25 mg PO DAILY 07/14/25 07/14/25 isosorbide mononitrate 30 mg 30 mg PO .@90AM 07/14/25 07/14/25 tablet,extended release 24 hr loratadine 10 mg tablet 10 mg PO DAILY 07/14/25 07/14/25 losartan 100 mg tablet 100 mg PO DAILY 07/14/25 07/14/25 meloxicam 7.5 mg tablet 7.5 mg PO .@9AM 07/14/25 07/14/25 metoprolol succinate 100 mg 100 mg PO DAILY 07/14/25 07/14/25 tablet,extended release 24 hr montelukast 10 mg tablet 10 mg PO .@9AM 07/14/25 07/14/25 roflumilast 500 mcg tablet 500 mcg PO .@9AM 07/14/25 07/14/25 sodium chloride 0.65 % nasal spray 1 spray intranasal BID PRN dry nose 07/14/25 07/14/25 aerosol Previous Rx's ?Medication ?Instructions ?Recorded hospital bed #1 ea 01/18/21 nebulizer machine with tubing and #1 ea 12/04/23 delivery device XL rollator walker with seat #1 ea 05/24/24 clobetasol 0.05 % topical ointment 1 applic topical BID 2 weeks #60 04/10/25 grams nitroglycerin 0.4 mg sublingual See Rx Instructions .Route 04/10/25 tablet .COMPLEX #25 tabs pantoprazole 40 mg tablet,delayed 40 mg PO DAILY #30 tabs 05/31/25 release (Protonix) polyethylene glycol 3350 17 17 g PO DAILY PRN constipation 07/04/25 gram/dose oral powder (Miralax) #510 grams tizanidine 4 mg tablet 4 mg PO Q8H PRN muscle spasticity 07/04/25 #30 tabs hydrocodone 5 mg-acetaminophen 325 1 tab PO Q6H PRN pain #12 tabs 07/16/25 mg tablet fluticasone fur. 100 mcg-umeclid See Rx Instructions .Route 07/17/25 62.5 mcg-vilant 25 mcg .COMPLEX #60 blisters inhalat.powder (Trelegy Ellipta) Allergies Allergy/AdvReac Type Severity Reaction Status Date / Time ciprofloxacin (From Cipro) Allergy Severe ALGY-Difficulty Verified 07/11/25 10:21 Breathing Penicillins Allergy Intermediate ALGY-Hives Verified 07/11/25 10:21 grape Allergy ALGY-Rash Verified 07/11/25 10:21 Review of Systems Const: Denies: fever(s) or chills Card: Denies: chest pain Resp: Denies: dyspnea GI: Denies: abdominal pain : Denies: dysuria, urinary frequency or urinary urgency Musc: Reports: back pain and extremity pain; Denies: neck pain Skin/Breast: Denies: rash PFSH ED PFSH: Medical History Vitamin D deficiency Chronic hypercapnic respiratory failure Acute pancreatitis CAD (coronary artery disease), [place] coronary artery Meralgia paresthetica, unspecified lower limb Facet syndrome, lumbar Lumbosacral spondylosis without myelopathy Spondylolisthesis Collapsed vertebra, not elsewhere classified, thoracic region, sequela of fracture Idiopathic scoliosis and kyphoscoliosis Bilateral primary osteoarthritis of knee CASSIE (obstructive sleep apnea) Iron deficiency Active asthma Mixed hyperlipidemia Sensorineural hearing loss, bilateral Tinnitus, bilateral Advanced COPD Essential (primary) hypertension DDD (degenerative disc disease) Surgical History Status post laparoscopic cholecystectomy (12/12/20) History of hysterectomy Hx of section Family History Other CAD (coronary artery disease) Cancer Diabetes Hypertension Social History Smoking and tobacco/nicotine status: former use of tobacco/nicotine Quit status (tobacco/nicotine): has quit using Year quit tobacco: 2008 Former quit date comment: 1-2 PPD x 20 yrs Second hand smoke exposure: No Alcohol intake: never Substance/Drug Use: never Lives independently: Yes Household members: family Marital status: / Current occupational status: disabled Do you think of yourself as: Straight/Heterosexual Current gender identity: Female Special sita needs: No Agree to transfusion: Yes Physical Exam Const: GENERAL APPEARANCE: cooperative ORIENTATION/CONSCIOUSNESS: Yes awake, Yes oriented to person, Yes oriented to place and Yes oriented to time HENMT: COMMON NORMALS: normocephalic, atraumatic and hearing grossly normal bilaterally HEAD & SCALP: normocephalic and atraumatic Resp: COMMON NORMALS: normal respiratory effort, No retractions, No use of accessory muscles and clear to auscultation bilaterally AUSCULTATION: clear to auscultation bilaterally Cardio: COMMON NORMALS: regular rate, regular rhythm and No murmurs present (Cardio) RATE: regular rate RHYTHM: regular rhythm GI: COMMON NORMALS: Soft to palpation and No hepatosplenomegaly present AUSCULTATION: Yes normoactive bowel sounds PALPATION: Yes Soft to palpation, No Tenderness to palpation present (GI), No Guarding due to palpation present (GI) and Yes No hepatosplenomegaly present Extremity: COMMON NORMALS: normal to inspection, capillary refill normal, no clubbing, cyanosis or edema, no calf tenderness and no pedal edema OTHER: Right leg weakness. Sensation normal. Normal capillary refill normal posterior tibialis pulse and dorsalis pedis pulses Neuro: SENSORIUM/ORIENTATION: Yes oriented to person, Yes oriented to place and Yes oriented to time Skin: COMMON NORMALS: no rashes or lesions noted GENERAL SKIN EXAM: no rashes or lesions noted Course Vital Signs: Vital signs: Vital Signs Temperature 97.7 F 07/16/25 11:18 Pulse Rate 80 07/16/25 11:18 Respiratory Rate 20 H 07/16/25 11:18 Blood Pressure 118/79 07/16/25 11:18 Pulse Oximetry 96 07/16/25 11:18 Oxygen Delivery Me thod Nasal Cannula 07/16/25 07:49 Oxygen Flow Rate 2.5 07/16/25 07:49 MDM - Back Pain/Injury Medical Decision Making Medical decision making Social determinants: Minimal assistance at home I reviewed the patient's medical record. I reviewed the patient's current home meds Alternate historians: None Differential diagnosis: Lumbar radiculopathy, lumbar nerve root compression, spondylolisthesis spondylolithiasis, vertebral compression fracture, lumbar central spinal canal stenosis, lumbar foraminal stenosis Lab Review: Imaging: CT shows L3 lumbar compression fracture with some retropulsion Assessment of risk: Level of risk: Moderate to high Hospitalization considerations: Hospitalized for pain control and orthopedic surgery consultation Reexamination: Mild improvement with analgesics given Assessment and plan: CT shows lumbar compression fracture with some retropulsion. Patient now has radicular-like symptoms discussed with Dr. Simpson he kindly agreed to consult on the patient. Will admit for pain control mild FITO Medical Records I reviewed the patient's medical records. Labs I reviewed the patient's lab results. 07/16/25 07:59 07/16/25 07:59 Radiology Impressions Lumbar Spine CT 07/14/25 09:15 IMPRESSION: 1. Mild acute compression fracture inferior endplate L3 with retropulsion of the posterior inferior cortex. This results in moderate central canal stenosis. 2. Chronic appearing severe central canal stenosis at the L4-5 level similar to the prior CT abdomen pelvis in 2023. Notified Yang Nichols DO at 07/14/2025 11:32 AM. 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
[2025-07-14] MEDS: morphine 4 mg/mL SDV 1 mL IVP (10:50)
[2025-07-14] MEDS: methylPREDNISolone sod succ 125 mg/2 mL INJ IVP (10:50)
[2025-07-14 13:57] LABS: Hematocrit 35.7 % (36-47); Hemoglobin 10.80 g/dL (11.27-16.99); Mean Corpuscular HGB Conc 30.3 g/dL (30-55); Mean Corpuscular Hemoglobin 27.9 pg (27-33); Mean Corpuscular Volume 92.2 fl (85-98); Nucleated Red Blood Cells % 0 %; Platelet Count 234 10^3/cmm (157-399); Red Blood Count 3.87 10^6/uL (3.85-5.65); White Blood Count 10.62 10^3/uL (3.29-11.43)
[2025-07-14] MEDS: pantoprazole 40 mg SDV IVP (14:18)
--- NOTE | 2025-07-14 14:21 | PM.HP ---
Providers/Chief Complaint Admitting Physician: Adia Webb MD Primary Care Provider: LORETA Pulido Chief Complaint: Back pain Can't walk R leg pain History of Present Illness As per the previous notes and the patient/family: Michelle Walton is a 70 year old female with PMH of COPD, CAD, Lumbosacral spondylosis without myelopathy, CASSIE (obstructive sleep apnea), Essential (primary) hypertension, Mixed hyperlipidemia, Chronic hypercapnic respiratory failure, came with a back pain and found to have mild acute compression fracture inferior endplate L3 ( for detailed report refer to the CT imaging ). there was no chest pain, dizziness, orthopnea, PND, SOB and rest of the review of the system is unremarkable. there is no h/o trauma to the back or any fall history. the patient has chronic spine issues and remote history of spine fracture as well. no fever or chills or any other B symptoms. the patient did not report any lower limb numbness or any incontinence associated with the back pain. no focal neurological deficit Review of Systems General: Reports: 10 or more systems reviewed and unremarkable except in HPI and below Medications/Allergies Home Medications ?Medication ?Instructions ?Recorded ?Confirmed ?Last Taken ?Type hospital bed #1 ea 01/18/21 07/14/25 Unknown Rx nebulizer machine with tubing and #1 ea 12/04/23 07/14/25 Unknown Rx delivery device XL rollator walker with seat #1 ea 05/24/24 07/14/25 Unknown Rx clobetasol 0.05 % topical ointment 1 applic topical BID 2 weeks #60 04/10/25 07/14/25 Unknown Rx grams nitroglycerin 0.4 mg sublingual See Rx Instructions .Route 04/10/25 07/14/25 Unknown Rx tablet .COMPLEX #25 tabs pantoprazole 40 mg tablet,delayed 40 mg PO DAILY #30 tabs 05/31/25 07/14/25 07/13/25 Rx release (Protonix) polyethylene glycol 3350 17 17 g PO DAILY PRN constipation 07/04/25 07/14/25 Unknown Rx gram/dose oral powder (Miralax) #510 grams tizanidine 4 mg tablet 4 mg PO Q8H PRN muscle spasticity 07/04/25 07/14/25 Unknown Rx #30 tabs albuterol sulfate 2.5 mg/3 mL 2.5 mg continuous nebulization Q6H 07/14/25 07/14/25 Unknown History (0.083 %) solution for nebulization PRN Shortness Of Breath albuterol sulfate 90 mcg/actuation 2 puff inhalation Q4H PRN 07/14/25 07/14/25 Unknown History aerosol inhaler Shortness Of Breath aspirin 81 mg tablet,delayed 81 mg PO DAILY 07/14/25 07/14/25 07/13/25 History release atorvastatin 10 mg tablet 10 mg PO DAILY 07/14/25 07/14/25 07/13/25 History calcium 500 mg (as 1 tab PO DAILY 07/14/25 07/14/25 07/13/25 History carbonate)-vitamin D3 5 mcg (200 unit) tablet (Oyster Shell Calcium-Vitamin D3) duloxetine 30 mg capsule,delayed 30 mg PO DAILY 07/14/25 07/14/25 07/13/25 History release ergocalciferol (vitamin D2) 1,250 50,000 unit PO Q7D 07/14/25 07/14/25 07/11/25 History mcg (50,000 unit) capsule ferrous sulfate 325 mg (65 mg 325 mg PO BID 07/14/25 07/14/25 07/13/25 History iron) tablet (FeroSul) fluticasone fur. 100 mcg-umeclid 1 inh inhalation DAILY 07/14/25 07/14/25 07/13/25 History 62.5 mcg-vilant 25 mcg inhalat.powder (Trelegy Ellipta) furosemide 20 mg tablet 10 mg PO BID 07/14/25 07/14/25 07/13/25 History gabapentin 100 mg capsule 200 mg PO BID 07/14/25 07/14/25 07/13/25 History hydrochlorothiazide 25 mg tablet 25 mg PO DAILY 07/14/25 07/14/25 07/13/25 History isosorbide mononitrate 30 mg 30 mg PO .@90AM 07/14/25 07/14/25 07/13/25 History tablet,extended release 24 hr loratadine 10 mg tablet 10 mg PO DAILY 07/14/25 07/14/25 07/13/25 History losartan 100 mg tablet 100 mg PO DAILY 07/14/25 07/14/25 07/13/25 History meloxicam 7.5 mg tablet 7.5 mg PO .@9AM 07/14/25 07/14/25 07/13/25 History metoprolol succinate 100 mg 100 mg PO DAILY 07/14/25 07/14/25 07/13/25 History tablet,extended release 24 hr montelukast 10 mg tablet 10 mg PO .@9AM 07/14/25 07/14/25 07/13/25 History roflumilast 500 mcg tablet 500 mcg PO .@9AM 07/14/25 07/14/25 07/13/25 History sodium chloride 0.65 % nasal spray 1 spray intranasal BID PRN dry nose 07/14/25 07/14/25 Unknown History aerosol Allergies Allergy/AdvReac Type Severity Reaction Status Date / Time ciprofloxacin (From Cipro) Allergy Severe ALGY-Difficulty Verified 07/11/25 10:21 Breathing Penicillins Allergy Intermediate ALGY-Hives Verified 07/11/25 10:21 grape Allergy ALGY-Rash Verified 07/11/25 10:21 PFSH Acute PFSH: Medical History (Updated 07/14/25 @ 17:30 by Adia Webb MD) Vitamin D deficiency Chronic hypercapnic respiratory failure Acute pancreatitis CAD (coronary artery disease), [place] coronary artery Meralgia paresthetica, unspecified lower limb Facet syndrome, lumbar Lumbosacral spondylosis without myelopathy Spondylolisthesis Collapsed vertebra, not elsewhere classified, thoracic region, sequela of fracture Idiopathic scoliosis and kyphoscoliosis Bilateral primary osteoarthritis of knee CASSIE (obstructive sleep apnea) Iron deficiency Active asthma Mixed hyperlipidemia Sensorineural hearing loss, bilateral Tinnitus, bilateral Advanced COPD Essential (primary) hypertension DDD (degenerative disc disease) Surgical History Status post laparoscopic cholecystectomy (12/12/20) History of hysterectomy Hx of section Family History Other CAD (coronary artery disease) Cancer Diabetes Hypertension Social History Smoking and tobacco/nicotine status: former use of tobacco/nicotine Quit status (tobacco/nicotine): has quit using Year quit tobacco: 2008 Former quit date comment: 1-2 PPD x 20 yrs Second hand smoke exposure: No Alcohol intake: never Substance/Drug Use: never Lives independently: Yes Household members: family Marital status: / Current occupational status: disabled Do you think of yourself as: Straight/Heterosexual Current gender identity: Female Special sita needs: No Agree to transfusion: Yes Vitals/I&O/Wt Last Vital Signs Temp 98.1 F 07/14/25 10:06 Pulse 66 07/14/25 13:30 Resp 17 07/14/25 10:50 BP 183/92 07/14/25 13:30 Pulse Ox 96 07/14/25 13:30 O2 Del Method Nasal Cannula 07/14/25 13:30 O2 Flow Rate 2 07/14/25 13:30 Weight last 48 hrs Weight 130.635 kg Physical Exam Narrative: General: morbidly obese patient, Alert and oriented, lying comfortably without any distress, having lumbar tenderness HEENT: Normocephalic, atraumatic, grossly unremarkable exam Cardio: normal rate rhythm, normal S1-S2 without any murmurs, rubs, or gallops and JVD normal Respiratory: having bilateral wheezing diffuse with prolonged exp phase, no stridor or crackles heard, pt is morbidly obese therefore the exam is limited GI: Abdomen soft, nontender, nondistended, normoactive bowel sounds present all 4 quadrants, Neuro: intact cranial nerves motor and sensory and cerebellar/coordination function without any focal neurological deficit Behavior: Appropriate and cooperative Extremities: Adequate palpable pulses,mild trace edema and left leg mild rash near the heal without any oozing or open wound Data 07/14/25 13:44 07/14/25 13:44 A&P Assessment and plan 1. Lumbar compression fracture: ortho on board and informed by the ER physician and to follow the plan adequate analgesia as per pain scale 2. Lumbosacral spondylosis without myelopathy: Patient on multiple medications for neuropathy, duloxetine 30 mg daily, gabapentin 200 mg twice daily To resume accordingly and to monitor any pain Adequate analgesia per pain scale rating 3. Severe muscle deconditioning: OT/PT evaluation and to follow the recommendation 4. COPD (chronic obstructive pulmonary disease): duonebs as q4hrly as scheduled oxygen therapy as per protocol prednison short course 40mg oral daily for 5 days Respiratory viral panel, flu and COVID screening Sputum cultures pt is on home o2 2l but no NIV maintain O2 sats in the range of 88-92% monitor hemodynamics 5. Active asthma: Patient having active wheezing Management as mentioned above Home medications montelukast and Roflumilast for COPD/asthma overlap syndrome has been resumed 6. Restrictive lung disease secondary to obesity: Oxygen therapy since the patient is on home oxygen 2 L DuoNeb scheduled Steroids short, 40 mg prednisone daily for 5 days, Antibiotics considering patient is likely having a COPD exacerbation 7. Mixed hyperlipidemia: continue home dose atorvastatin 10mg daily 8. CAD (coronary artery disease), [place] coronary artery: cont home dose aspirin and atorvastatin 9. Essential (primary) hypertension: Patient taking home medications to reconcile and resume as per clinical assessment Patient home medication Imdur 30 mg daily, hydrochlorothiazide 25 mg daily and metoprolol 100 mg daily started and to monitor blood pressure Continue Lasix 10 mg p.o. twice daily as the patient is taking at home 10. FITO (acute kidney injury): Mildly raised creatinine Possible class I FITO Adequate hydration to maintain and to monitor renal function and electrolytes If the patient is not improving post hydration then further workup for FITO to be done accordingly Avoid any nephrotoxic drugs PDMP PDMP Reviewed: Not Reviewed Attestations Medical Necessity Statement*: Michelle Walton's hospital stay will require greater than 2 midnights for the management of her lumbar fracture and pain control with further optimisation of her rest of the comorbidities Time Spent in Patient Care: 16 - 35 minutes (>than 50% of time spent in counselling and/or direct pt care on unit). Other Attestations: Patient condition has been discussed at length with the patient/family, I have independently reviewed the chart labs imaging/diagnostics/EKG. the goals of care and code status with the patient/family/NOK/legal residential sales representative, and documented accordingly. The management has been done according to the current clinical condition with respect to patient goals of care and based on recommendations/guidelines. The patient/family has been informed about the current condition and further plan of care. Agreed with the plan of care and understood without any language barrier. Every effort was made to ensure accuracy of revolving field assembler. Any obvious errors or omissions should be clarified with the author of the document. Coding Level of Care Code 09157 Diagnoses Lumbar compression fracture S32.000A Lumbosacral spondylosis without myelopathy M47.817 Severe muscle deconditioning R29.898 COPD (chronic obstructive pulmonary disease) J44.9 Active asthma J45.909 Restrictive lung disease secondary to obesity J98.4; E66.9 Mixed hyperlipidemia E78.2 CAD (coronary artery disease), [place] coronary artery I25.10 Essential (primary) hypertension I10 FITO (acute kidney injury) N17.9
[2025-07-14 14:23] LABS: Alanine Aminotransferase 11 U/L (0-33); Albumin Level 3.7 g/dL (3.5-5.2); Alkaline Phosphatase 77 U/L (35-105); Aspartate Amino Transferase 19 U/L (0-32); Blood Urea Nitrogen 19 mg/dL (8-23); Calcium 9.6 mg/dL (8.5-10.5); Carbon Dioxide 27 mmol/L (22-29); Chloride 96 mmol/L (98-107); Globulin 4.0 g/dL (1.3-4.6); Glucose 112 mg/dL (65-115); Magnesium 2.3 mg/dL (1.7-2.3); Osmolality Calculated 289 mOsm/kg (285-295); Sodium 138 mmol/L (136-145); Thyroid Stimulating Hormone 1.17 uIU/mL (0.27-4.20); Total Protein 7.7 g/dL (6.6-8.7)
[2025-07-14 14:27] LABS: Anion Gap 18.9 (5-19); Potassium 3.9 mmol/L (3.5-5.1)
[2025-07-14] MEDS: ferrous sulfate EC 325 mg Tablet PO (17:23)
[2025-07-14] MEDS: HYDROcodone-acetaminophen 5-325 mg Tablet 1 TAB PO ×2 (17:30→22:48)
[2025-07-14] MEDS: heparin 5,000 unit/mL INJ 1 mL 5000 UNIT SUBCUT (18:02)
[2025-07-14] MEDS: ATORVASTATIN 10 MG TABLET PO (21:27)
[2025-07-14 23:39] LABS: Coronavirus 229E,HKU1,NL63,OC4 Not Detected (NOT DETECT); Parainfluenza Virus Type 1 Not Detected (NOT DETECT); Parainfluenza Virus Type 2 Not Detected (NOT DETECT); Parainfluenza Virus Type 3 Not Detected (NOT DETECT); Parainfluenza Virus Type 4 Not Detected (NOT DETECT); SARS-COV-2 Not Detected (NOT DETECT)
[2025-07-15] VITALS (8 sets, daily range): BP systolic 121–184; BP diastolic 62–84; PULSE 66–99; RESP 16–18; TEMP 36.4–36.8; O2SAT 90–96
[2025-07-15] MEDS: ferrous sulfate EC 325 mg Tablet PO ×2 (04:58→16:24)
[2025-07-15] MEDS: HYDROcodone-acetaminophen 5-325 mg Tablet 1 TAB PO ×4 (04:59→23:00)
[2025-07-15] MEDS: metoprolol succinate ER (24 HR) 100 mg Tablet PO (04:59)
[2025-07-15] MEDS: heparin 5,000 unit/mL INJ 1 mL 5000 UNIT SUBCUT ×2 (05:02→17:20)
--- NOTE | 2025-07-15 07:46 | PM.PN ---
Subjective Subjective: Patient is a very pleasant 70-year-old female seen and examined at bedside on hospital rounds today. Patient sitting up in bed with continued right leg and low back pain, shortness of breath but at her baseline oxygen requirement. Patient denies new or worsening symptoms. Patient states that she can transfer from her bed to her bathroom, walks with walker at her baseline but typically does not walk. Patient denies difficulty urinating or diminished sensation in her lower extremities. Currently waiting orthopedic surgical evaluation and recommendations, did speak with Dr. Rollins and he did say that patient cannot have a diet that he had no plans for surgical interventions today. Physical therapy and Occupational Therapy ordered, pending evaluation, we will continue current management and patient. Patient's vital signs are stable, stable hemoglobin 10.50, creatinine 1.3 this morning which is mildly improved from 1.4 on admission. Vitals/I&O/Wt Last Vital Signs Temp 97.6 F 07/15/25 04:00 Pulse 80 07/15/25 04:00 Resp 17 07/15/25 04:00 BP 128/68 07/15/25 04:00 Pulse Ox 90 07/15/25 04:00 O2 Del Method Room Air 07/15/25 04:00 O2 Flow Rate 2 07/14/25 23:56 07/14/25 07/15/25 07/15/25 22:59 06:59 14:59 Intake Total 240 / 240 1000 / 1240 Output Total 1300 / 1300 200 / 1500 Balance -1060 / -1060 800 / -260 Weight last 48 hrs Weight 127.488 kg Weight 130.635 kg Weight 130.635 kg Physical Exam Narrative: General: morbidly obese patient, Alert and oriented, lying comfortably without any distress, having lumbar tenderness HEENT: Normocephalic, atraumatic, grossly unremarkable exam Cardio: normal rate rhythm, normal S1-S2 without any murmurs, rubs, or gallops and JVD normal Respiratory: having bilateral wheezing diffuse with prolonged exp phase, no stridor or crackles heard, pt is morbidly obese therefore the exam is limited GI: Abdomen soft, nontender, nondistended, normoactive bowel sounds present all 4 quadrants, Neuro: intact cranial nerves motor and sensory and cerebellar/coordination function without any focal neurological deficit Behavior: Appropriate and cooperative Extremities: Adequate palpable pulses,mild trace edema and left leg mild rash near the heal without any oozing or open wound Urinary Catheter Management: Redman: Cath Placed During This Visit: yes Reason for Continuing Indwelling Catheter: Required Immobilization for Trauma or Surgery or Anesthesia Urinary Catheter Date of Insertion: 07/14/25 Urinary Catheter Time of Insertion: 14:28 Data 07/15/25 08:21 07/15/25 08:21 A&P Assessment and plan 1. Lumbar compression fracture: - Multi-modal pain control - Greatly orthopedic consultation and management with Dr. Rollins 2. Lumbosacral spondylosis without myelopathy: - Patient on multiple medications for neuropathy, duloxetine 30 mg daily, gabapentin 200 mg twice daily - Pending PT/OT 3. Severe muscle deconditioning: OT/PT evaluation and to follow the recommendation 4. COPD (chronic obstructive pulmonary disease): - duonebs as q4hrly as scheduled - oxygen therapy as per protocol - prednisone short course 40mg oral daily for 5 days - Respiratory viral panel, flu and COVID screening - Sputum cultures - Baseline O2 requirement 2Lpm, maintain O2 sats in the range of 88-92% - monitor hemodynamics 5. Active asthma: - Improved respirations - Management as mentioned above - Home medications montelukast and Roflumilast for COPD/asthma overlap syndrome has been resumed 6. Restrictive lung disease secondary to obesity: - Oxygen therapy since the patient is on home oxygen 2 L - DuoNeb scheduled - Steroids short, 40 mg prednisone daily for 5 days, - Antibiotics considering patient is likely having a COPD exacerbation 7. Mixed hyperlipidemia: - continue home dose atorvastatin 10mg daily 8. CAD (coronary artery disease), [place] coronary artery: - continue home dose aspirin and atorvastatin 9. Essential (primary) hypertension: - Patient taking home medications to reconcile and resume as per clinical assessment - Patient home medication Imdur 30 mg daily, hydrochlorothiazide 25 mg daily and metoprolol 100 mg daily started and to monitor blood pressure - Continue Lasix 10 mg p.o. twice daily as the patient is taking at home 10. FITO (acute kidney injury): - Mildly raised creatinine, improving, baseline around 1.0, now 1.3 - FITO ruled out - Adequate hydration to maintain and to monitor renal function and electrolytes - Avoid any nephrotoxic drugs Plan: 07/15/2025 Patient has improved lower back pain, managing multimodal pain control. Continued respiratory interventions with oxygen supplementation and nebulizer therapy, with anitbiotics covering COPD. Greatly appreciate orthopedic consultation and management with . Coy PT/OT evaluation and recommendations. Working with case management on discharge planning, expect discharge within the next 48hrs if medically stable. PDMP PDMP Reviewed: Not Reviewed Attestations Medical Necessity Statement*: Continue inpatient treatment greater than 2 midnights for the management of COPD, lumbar fracture and pain control with further optimisation of her rest of the comorbidities. Coding Level of Care Code 40352 Diagnoses Lumbar compression fracture S32.000A Lumbosacral spondylosis without myelopathy M47.817 Severe muscle deconditioning R29.898 COPD (chronic obstructive pulmonary disease) J44.9 Active asthma J45.909 Restrictive lung disease secondary to obesity J98.4; E66.9 Mixed hyperlipidemia E78.2 CAD (coronary artery disease), [place] coronary artery I25.10 Essential (primary) hypertension I10 FITO (acute kidney injury) N17.9
[2025-07-15 08:39] LABS: Hematocrit 33.3 % (36-47); Hemoglobin 10.50 g/dL (11.27-16.99); Mean Corpuscular HGB Conc 31.5 g/dL (30-55); Mean Corpuscular Hemoglobin 27.7 pg (27-33); Mean Corpuscular Volume 87.9 fl (85-98); Nucleated Red Blood Cells % 0 %; Platelet Count 282 10^3/cmm (157-399); Red Blood Count 3.79 10^6/uL (3.85-5.65); White Blood Count 10.17 10^3/uL (3.29-11.43)
[2025-07-15 09:01] LABS: Alanine Aminotransferase 9 U/L (0-33); Albumin Level 3.5 g/dL (3.5-5.2); Alkaline Phosphatase 68 U/L (35-105); Anion Gap 14.7 (5-19); Aspartate Amino Transferase 14 U/L (0-32); Blood Urea Nitrogen 20 mg/dL (8-23); Calcium 9.2 mg/dL (8.5-10.5); Carbon Dioxide 29 mmol/L (22-29); Chloride 99 mmol/L (98-107); Globulin 4.0 g/dL (1.3-4.6); Glucose 133 mg/dL (65-115); Magnesium 2.3 mg/dL (1.7-2.3); Osmolality Calculated 293 mOsm/kg (285-295); Potassium 3.7 mmol/L (3.5-5.1); Sodium 139 mmol/L (136-145); Total Protein 7.5 g/dL (6.6-8.7)
--- NOTE | 2025-07-15 11:56 | PC.CHAP ---
Pastoral Care Encounter/Spiritual Assessment Type of Contact [] Declined heel sander rubber visit [] Patient/Family/Request visit [] Outpatient visit [] Follow-up visit [] Physician referral [] Code/Alert [x] Routine visit [] Staff referral [] Actively dying [] Patient sleeping [] Family support [] [] Out of room [] Palliative care [] [] Receiving care in room [] Pre-surgical visit [] Trauma [] Long length of stay [] ICU visit [] Other: Relational/Emotional Strength [x] Patient feels connected with others/family/visitors/staff [] Distress [x] Loneliness/isolation [] Abandonment Spirituality of Patient [x] Person of Anneliese [x] Attends Sabianist of their Anneliese [x] Believes in Prayer [x] Reads Bible or Confucianism materials [] There are Spiritual issues to be addressed [employer] Interventions [x] Prayer [x] Active listening [x] Non-anxious presence [x] Spiritual/emotional support [] Crisis/trauma care [] Spiritual counseling [] Bereavement support [] Provided bereavement packet [] Provided Bible/devotional materials [] Provided toy/stuffed animal, coloring book to patient or family member [] Provided Communion [] Anointing/[place] [] Salvation [] Completed spiritual assessment [] Other: Impact on Illness or Injury [] Angry [] Fearful [] Anxious [] Often cries [] Exhaustion [] Unable to work [x] Unable to attend alevism [x] Unable to walk/stand [] Unable to read [x] Unable to drive [] Unable to eat/drink [] Unable to sleep [] Unable to be with family [] Patient intubated [] Other: Summary Prayer and visit Time spent with patient 1 Hrs 20 Min
--- NOTE | 2025-07-15 12:36 | PM.CONSULT ---
Providers/Reason For Consult Consulting Physician/Specialty*: Hospitalist Reason for Consult*: Intractable back pain Attending Physician: Tiera Hollingsworth NP Primary Care Provider: LORETA Pulido History of Present Illness History of Present Illness Michelle Walton is a 70 year old female admitted to the hospital for back pain. At this point seen at in the room on the floor. Patient is sitting up in bed comfortable with her legs crossed eating lunch does not appear to be in any type of pain. Legs are in good has no numbness tingling or weakness in her legs. Patient did not have any history of a fall or any type of incident. Patient stated that she had an old compression fracture she knew about. But at this point does not recollect any type of injury. Review of Systems Const: Denies: fever(s) or chills Card: Denies: chest pain Resp: Denies: dyspnea GI: Denies: abdominal pain : Denies: dysuria, urinary frequency or urinary urgency Musc: Denies: neck pain or back pain Skin/Breast: Denies: rash Medications/Allergies Home Medications ?Medication ?Instructions ?Recorded ?Confirmed ?Last Taken ?Type hospital bed #1 01/18/21 07/14/25 Unknown Rx nebulizer machine with tubing and #1 12/04/23 07/14/25 Unknown Rx delivery device XL rollator walker with seat #1 05/24/24 07/14/25 Unknown Rx clobetasol 0.05 % topical ointment 1 applic topical BID 2 weeks #60 04/10/25 07/14/25 Unknown Rx grams nitroglycerin 0.4 mg sublingual See Rx Instructions .Route 04/10/25 07/14/25 Unknown Rx tablet .COMPLEX #25 tabs pantoprazole 40 mg tablet,delayed 40 mg PO DAILY #30 tabs 05/31/25 07/14/25 07/13/25 Rx release (Protonix) polyethylene glycol 3350 17 17 g PO DAILY PRN constipation 07/04/25 07/14/25 Unknown Rx gram/dose oral powder (Miralax) #510 grams tizanidine 4 mg tablet 4 mg PO Q8H PRN muscle spasticity 07/04/25 07/14/25 Unknown Rx #30 tabs albuterol sulfate 2.5 mg/3 mL 2.5 mg continuous nebulization Q6H 07/14/25 07/14/25 Unknown History (0.083 %) solution for nebulization PRN Shortness Of Breath albuterol sulfate 90 mcg/actuation 2 puff inhalation Q4H PRN 07/14/25 07/14/25 Unknown History aerosol inhaler Shortness Of Breath aspirin 81 mg tablet,delayed 81 mg PO DAILY 07/14/25 07/14/25 07/13/25 History release atorvastatin 10 mg tablet 10 mg PO DAILY 07/14/25 07/14/25 07/13/25 History calcium 500 mg (as 1 tab PO DAILY 07/14/25 07/14/25 07/13/25 History carbonate)-vitamin D3 5 mcg (200 unit) tablet (Oyster Shell Calcium-Vitamin D3) duloxetine 30 mg capsule,delayed 30 mg PO DAILY 07/14/25 07/14/25 07/13/25 History release ergocalciferol (vitamin D2) 1,250 50,000 unit PO Q7D 07/14/25 07/14/25 07/11/25 History mcg (50,000 unit) capsule ferrous sulfate 325 mg (65 mg 325 mg PO BID 07/14/25 07/14/25 07/13/25 History iron) tablet (FeroSul) fluticasone fur. 100 mcg-umeclid 1 inh inhalation DAILY 07/14/25 07/14/25 07/13/25 History 62.5 mcg-vilant 25 mcg inhalat.powder (Trelegy Ellipta) furosemide 20 mg tablet 10 mg PO BID 07/14/25 07/14/25 07/13/25 History gabapentin 100 mg capsule 200 mg PO BID 07/14/25 07/14/25 07/13/25 History hydrochlorothiazide 25 mg tablet 25 mg PO DAILY 07/14/25 07/14/25 07/13/25 History isosorbide mononitrate 30 mg 30 mg PO .@90AM 07/14/25 07/14/25 07/13/25 History tablet,extended release 24 hr loratadine 10 mg tablet 10 mg PO DAILY 07/14/25 07/14/25 07/13/25 History losartan 100 mg tablet 100 mg PO DAILY 07/14/25 07/14/25 07/13/25 History meloxicam 7.5 mg tablet 7.5 mg PO .@9AM 07/14/25 07/14/25 07/13/25 History metoprolol succinate 100 mg 100 mg PO DAILY 07/14/25 07/14/25 07/13/25 History tablet,extended release 24 hr montelukast 10 mg tablet 10 mg PO .@9AM 07/14/25 07/14/25 07/13/25 History roflumilast 500 mcg tablet 500 mcg PO .@9AM 07/14/25 07/14/25 07/13/25 History sodium chloride 0.65 % nasal spray 1 spray intranasal BID PRN dry nose 07/14/25 07/14/25 Unknown History aerosol Allergies Allergy/AdvReac Type Severity Reaction Status Date / Time ciprofloxacin (From [facility]) Allergy Severe ALGY-Difficulty Verified 07/11/25 10:21 Breathing Penicillins Allergy Intermediate ALGY-Hives Verified 07/11/25 10:21 grape Allergy ALGY-Rash Verified 07/11/25 10:21 Current Medications Generic Name Dose Route Start Last Admin Trade Name Yannq PRN Reason Stop Dose Admin Hydrocodone Bitart/Acetaminophen 1 tab 07/14/25 17:15 07/15/25 10:14 Hydrocodone-Acetaminophen 5-325 Mg Tablet PO 1 tab Q6H [facility] Administration Aspirin 81 mg 07/15/25 05:00 07/15/25 04:59 Aspirin 81 Mg Ec Tablet PO 81 mg DAILY [facility] Administration Atorvastatin Calcium 10 mg 07/14/25 21:00 07/14/25 21:27 Atorvastatin 10 Mg Tablet PO 10 mg BEDTIME [facility] Administration Clotrimazole 1 applic 07/14/25 17:00 07/15/25 05:00 Clotrimazole 1% Cream 30 Gm TOPICAL 1 applic BID [facility] Administration Duloxetine HCl 30 mg 07/15/25 05:00 07/15/25 04:59 Duloxetine 30 Mg Capsule PO 30 mg DAILY [facility] Administration Ferrous Sulfate 325 mg 07/14/25 17:00 07/15/25 04:58 Ferrous Sulfate Ec 325 Mg Tablet PO 325 mg BID [facility] Administration Furosemide 10 mg 07/15/25 05:00 07/15/25 04:59 Furosemide 20 Mg Tablet PO 10 mg BID [facility] Administration Gabapentin 200 mg 07/14/25 17:00 07/15/25 04:58 Gabapentin 100 Mg Capsule PO 200 mg BID [facility] Administration Heparin Sodium (Porcine) 5,000 unit 07/14/25 17:30 07/15/25 05:02 Heparin 5,000 Unit/Ml Inj 1 Ml SUBCUT 5,000 unit Q12H [facility] Administration Hydrochlorothiazide 25 mg 07/15/25 05:00 07/15/25 04:59 Hydrochlorothiazide 25 Mg Tablet PO 25 mg DAILY [facility] Administration Sodium Chloride 1,000 mls @ 75 mls/hr 07/15/25 09:00 07/15/25 10:11 Sodium Chloride 0.9% IV 75 mls/hr .[id number] [facility] Administration Isosorbide Mononitrate 30 mg 07/15/25 09:00 07/15/25 08:38 Isosorbide Mononitrate Er 30 Mg Tablet PO 30 mg DAILY@0900 [facility] Administration Metoprolol Succinate 100 mg 07/15/25 05:00 07/15/25 04:59 Metoprolol Succinate Er (24 Hr) 100 Mg Tablet PO 100 mg DAILY [facility] Administration Montelukast Sodium 10 mg 07/15/25 09:00 07/15/25 08:38 Montelukast Sodium 10 Mg Tablet PO 10 mg DAILY@0900 [facility] Administration Pantoprazole Sodium 40 mg 07/14/25 13:00 07/14/25 14:18 Pantoprazole 40 Mg Sdv IVP 40 mg Q24H [place] Administration Prednisone 40 mg 07/15/25 05:00 07/15/25 04:59 Prednisone 20 Mg Tablet PO 40 mg DAILY [facility] Administration Roflumilast 500 mcg 07/15/25 09:00 07/15/25 08:38 Roflumilast 500 Mcg Tablet PO 500 mcg DAILY@0900 [facility] Administration Senna 17.2 mg 07/14/25 21:00 07/14/25 21:27 Sennosides 8.6 Mg Tablet PO 17.2 mg BEDTIME [facility] Administration Tizanidine HCl 4 mg 07/14/25 17:15 07/15/25 08:38 Tizanidine 4 Mg Tablet PO 4 mg Q8H [facility] Administration PFSH Acute PFSH: Medical History (Updated 07/15/25 @ 12:40 by Eamon Rollins DO) Vitamin D deficiency Chronic hypercapnic respiratory failure Acute pancreatitis CAD (coronary artery disease), [place] coronary artery Meralgia paresthetica, unspecified lower limb Facet syndrome, lumbar Lumbosacral spondylosis without myelopathy Spondylolisthesis Collapsed vertebra, not elsewhere classified, thoracic region, sequela of fracture Idiopathic scoliosis and kyphoscoliosis Bilateral primary osteoarthritis of knee CASSIE (obstructive sleep apnea) Iron deficiency Active asthma Mixed hyperlipidemia Sensorineural hearing loss, bilateral Tinnitus, bilateral Advanced COPD Essential (primary) hypertension DDD (degenerative disc disease) Surgical History Status post laparoscopic cholecystectomy (12/12/20) History of hysterectomy Hx of section Family History Other CAD (coronary artery disease) Cancer Diabetes Hypertension Social History Smoking and tobacco/nicotine status: former use of tobacco/nicotine Quit status (tobacco/nicotine): has quit using Year quit tobacco: 2008 Former quit date comment: 1-2 PPD x 20 yrs Second hand smoke exposure: No Alcohol intake: never Substance/Drug Use: never Lives independently: Yes Household members: family Marital status: / Current occupational status: disabled Do you think of yourself as: Straight/Heterosexual Current gender identity: Female Special sita needs: No Agree to transfusion: Yes Vitals/I&O/Wt Last Vital Signs Temp 98.2 F 07/15/25 07:52 Pulse 66 07/15/25 08:24 Resp 18 07/15/25 08:24 BP 184/84 07/15/25 07:52 Pulse Ox 94 07/15/25 08:24 O2 Del Method Nasal Cannula 07/15/25 08:24 O2 Flow Rate 2 07/15/25 08:24 07/14/25 07/15/25 07/15/25 22:59 06:59 14:59 Intake Total 240 / 240 1000 / 1240 1240 / 1240 Output Total 1300 / 1300 200 / 1500 Balance -1060 / -1060 800 / -260 1240 / 1240 Weight last 48 hrs Weight 281 lb 1 oz Weight 288 lb Weight 288 lb Physical Exam Narrative: Alert and oriented x 3 Head is normocephalic atraumatic Respirations are intact No evidence of any rashes or infection 5/5 strength in bilateral upper and lower extremities Sensation intact in all extremities Urinary Catheter Management: Redman: Cath Placed During This Visit: yes Reason for Continuing Indwelling Catheter: Required Immobilization for Trauma or Surgery or Anesthesia Urinary Catheter Date of Insertion: 07/14/25 Urinary Catheter Time of Insertion: 14:28 Data 07/15/25 08:21 07/15/25 08:21 A&P Assessment and plan 1. Compression fracture of L3 vertebra, initial encounter: Pain is controlled with current pain medication that was given to her. At this point I have nothing further to add she can be discharged from my standpoint I will follow her up in outpatient clinic. PDMP PDMP Reviewed: Not Reviewed Coding Level of Care Code Acute Code for Chg Fwd Diagnoses Compression fracture of L3 vertebra, initial encounter S32.030A Encounter type: initial encounter Lumbar vertebra fracture level: L3
[2025-07-15] MEDS: pantoprazole 40 mg SDV IVP (13:55)
[2025-07-15] MEDS: ATORVASTATIN 10 MG TABLET PO (20:15)
[2025-07-16] VITALS (7 sets, daily range): BP systolic 118–196; BP diastolic 69–79; PULSE 78–87; RESP 16–20; TEMP 36.5–36.7; O2SAT 92–96; BMI 54.8
[2025-07-16] MEDS: ferrous sulfate EC 325 mg Tablet PO (04:36)
[2025-07-16] MEDS: metoprolol succinate ER (24 HR) 100 mg Tablet PO (04:37)
[2025-07-16] MEDS: heparin 5,000 unit/mL INJ 1 mL 5000 UNIT SUBCUT (04:37)
[2025-07-16] MEDS: HYDROcodone-acetaminophen 5-325 mg Tablet 1 TAB PO (04:37)
[2025-07-16 08:07] LABS: Hematocrit 32.6 % (36-47); Hemoglobin 9.90 g/dL (11.27-16.99); Mean Corpuscular HGB Conc 30.4 g/dL (30-55); Mean Corpuscular Hemoglobin 27.4 pg (27-33); Mean Corpuscular Volume 90.3 fl (85-98); Nucleated Red Blood Cells % 0.2 %; Platelet Count 214 10^3/cmm (157-399); Red Blood Count 3.61 10^6/uL (3.85-5.65); White Blood Count 11.84 10^3/uL (3.29-11.43)
[2025-07-16 08:29] LABS: Alanine Aminotransferase 9 U/L (0-33); Albumin Level 4.0 g/dL (3.5-5.2); Alkaline Phosphatase 68 U/L (35-105); Anion Gap 9.7 (5-19); Aspartate Amino Transferase 13 U/L (0-32); Blood Urea Nitrogen 19 mg/dL (8-23); Calcium 8.9 mg/dL (8.5-10.5); Carbon Dioxide 35 mmol/L (22-29); Chloride 100 mmol/L (98-107); Globulin 2.6 g/dL (1.3-4.6); Glucose 125 mg/dL (65-115); Osmolality Calculated 296 mOsm/kg (285-295); Potassium 3.7 mmol/L (3.5-5.1); Sodium 141 mmol/L (136-145); Total Protein 6.6 g/dL (6.6-8.7)
[2025-07-16 08:38] LABS: Magnesium 2.2 mg/dL (1.7-2.3)
--- NOTE | 2025-07-16 08:45 | P.DS_ITS ---
Discharge Providers Date of Admission: 07/14/25 13:34 Date of Discharge: July 16, 2025 Attending Provider at Admission: Adia Webb MD Attending Provider at Discharge: Tiera Hollingsworth NP Primary Care Provider: LORETA Pulido Diagnoses at Discharge Discharge Diagnosis 1. Compression fracture of L3 vertebra, initial encounter: 2. Lumbosacral spondylosis without myelopathy: 3. Severe muscle deconditionin. Centrilobular emphysema: 5. Active asthma: 6. Restrictive lung disease secondary to obesity: 7. Mixed hyperlipidemia: 8. Coronary artery disease involving [place] coronary artery of [place] heart without angina pectoris: 9. Essential (primary) hypertension: 10. FITO (acute kidney injury): Reason for Visit Reason for Visit: Back pain Can't walk R leg pain Brief History: Admission: Michelle Walton is a 70 year old female with PMH of COPD, CAD, Lumbosacral spondylosis without myelopathy, CASSIE (obstructive sleep apnea), Essential (primary) hypertension, Mixed hyperlipidemia, Chronic hypercapnic respiratory failure, came with a back pain and found to have mild acute compression fracture inferior endplate L3 ( for detailed report refer to the CT imaging ). there was no chest pain, dizziness, orthopnea, PND, SOB and rest of the review of the system is unremarkable. there is no h/o trauma to the back or any fall history. the patient has chronic spine issues and remote history of spine fracture as well. no fever or chills or any other B symptoms. the patient did not report any lower limb numbness or any incontinence associated with the back pain. no focal neurological deficit. Hospital Course Hospital Course 1. Lumbar compression fracture: - Multi-modal pain control - Greatly orthopedic consultation and management with Dr. Rollins 2. Lumbosacral spondylosis without myelopathy: - Patient on multiple medications for neuropathy, duloxetine 30 mg daily, gabapentin 200 mg twice daily - Pending PT/OT 3. Severe muscle deconditioning: OT/PT evaluation and to follow the recommendation 4. COPD (chronic obstructive pulmonary disease): - duonebs as q4hrly as scheduled - oxygen therapy as per protocol - prednisone short course 40mg oral daily for 5 days - Respiratory viral panel, flu and COVID screening - Sputum cultures - Baseline O2 requirement 2Lpm, maintain O2 sats in the range of 88-92% - monitor hemodynamics 5. Active asthma: - Improved respirations - Management as mentioned above - Home medications montelukast and Roflumilast for COPD/asthma overlap syndrome has been resumed 6. Restrictive lung disease secondary to obesity: - Oxygen therapy since the patient is on home oxygen 2 L - DuoNeb scheduled - Steroids short, 40 mg prednisone daily for 5 days, - Antibiotics considering patient is likely having a COPD exacerbation 7. Mixed hyperlipidemia: - continue home dose atorvastatin 10mg daily 8. CAD (coronary artery disease), [place] coronary artery: - continue home dose aspirin and atorvastatin 9. Essential (primary) hypertension: - Patient taking home medications to reconcile and resume as per clinical assessment - Patient home medication Imdur 30 mg daily, hydrochlorothiazide 25 mg daily and metoprolol 100 mg daily started and to monitor blood pressure - Continue Lasix 10 mg p.o. twice daily as the patient is taking at home 10. FITO (acute kidney injury): - Mildly raised creatinine, improving, baseline around 1.0, now 1.3 - FITO ruled out - Adequate hydration to maintain and to monitor renal function and electrolytes - Avoid any nephrotoxic drugs Patient seen and evaluated by physical therapy, recommendations for bedside commode Home with home health with continued PT/OT. Patient will follow-up outpatient with Dr. Rollins, no plans for surgical interventions, patient will follow up outpatient within 2 weeks. Patient much improved, still having low back pain with right leg pain, ordered bedside commode and referred to pain management. Discharge is in stable condition in care of family, will follow-up with primary care in 1 to 3 days for continued oral pain management, did prescribe 3 days worth of pain medication for better pain control until patient can be seen by PCP. Continues antibiotics for COPD. All questions and concerns addressed to the patient prior to discharge. Physical Exam Narrative: General: morbidly obese patient, Alert and oriented, lying comfortably without any distress, having lumbar tenderness HEENT: Normocephalic, atraumatic, grossly unremarkable exam Cardio: normal rate rhythm, normal S1-S2 without any murmurs, rubs, or gallops and JVD normal Respiratory: having bilateral wheezing diffuse with prolonged exp phase, no stridor or crackles heard, pt is morbidly obese therefore the exam is limited GI: Abdomen soft, nontender, nondistended, normoactive bowel sounds present all 4 quadrants, Neuro: intact cranial nerves motor and sensory and cerebellar/coordination function without any focal neurological deficit Behavior: Appropriate and cooperative Extremities: Adequate palpable pulses,mild trace edema and left leg mild rash near the heal without any oozing or open wound Urinary Catheter Management: Redman: Cath Placed During This Visit: yes, but has since been removed by the nurse Reason for Continuing Indwelling Catheter: Required Immobilization for Trauma or Surgery or Anesthesia Urinary Catheter Date of Insertion: 07/14/25 Urinary Catheter Time of Insertion: 14:28 Date Urinary Catheter Removed: 07/16/25 Discharge Data Studies Completed and Pending Completed Studies During Hospitalization Category Date Time Status CT lumbar spine wo con* [id number] Stat Cat Scan 07/14/25 09:15 Completed Pending at discharge Category Date Time Status Sputum Culture and Gram Stain Stat Lab 07/14/25 22:08 Results Radiology Impressions Lumbar Spine CT 07/14/25 09:15 IMPRESSION: 1. Mild acute compression fracture inferior endplate L3 with retropulsion of the posterior inferior cortex. This results in moderate central canal stenosis. 2. Chronic appearing severe central canal stenosis at the L4-5 level similar to the prior CT abdomen pelvis in 2023. Notified Yang Nichols DO at 07/14/2025 11:32 AM. Laboratory Results WBC 11.84 10^3/uL (3.29-11.43) H 07/16/25 07:59 RBC 3.61 10^6/uL (3.85-5.65) L 07/16/25 07:59 Hgb 9.90 g/dL (11.27-16.99) L 07/16/25 07:59 Hct 32.6 % (36-47) L 07/16/25 07:59 MCV 90.3 fl (85-98) 07/16/25 07:59 MCH 27.4 pg (27-33) 07/16/25 07:59 MCHC 30.4 g/dL (30-55) 07/16/25 07:59 RDW 13.8 % (12.1-15.1) 07/16/25 07:59 Plt Count 214 10^3/cmm (157-399) 07/16/25 07:59 MPV 8.7 fL (7.4-10.4) 07/16/25 07:59 Neut % (Auto) 79.5 % 07/16/25 07:59 Lymph % (Auto) 10.1 % 07/16/25 07:59 Forest % (Auto) 5.1 % 07/16/25 07:59 Eos % (Auto) 0.3 % 07/16/25 07:59 Baso % (Auto) 0.6 % 07/16/25 07:59 Neut # (Auto) 9.42 10^3/uL (1.8-7.7) H 07/16/25 07:59 Lymph # (Auto) 1.2 10^3/uL (0.8-4.8) 07/16/25 07:59 Forest # (Auto) 0.6 10^3/uL (0.2-0.9) 07/16/25 07:59 Eos # (Auto) 0.0 10^3/uL (0.0-0.8) 07/16/25 07:59 Baso # (Auto) 0.1 10^3/uL (0.0-0.1) 07/16/25 07:59 Nucleated RBC % (auto) 0.2 % 07/16/25 07:59 Nucleated RBCs # 0.0 /100WBC 07/16/25 07:59 Sodium 141 mmol/L (136-145) 07/16/25 07:59 Potassium 3.7 mmol/L (3.5-5.1) 07/16/25 07:59 Chloride 100 mmol/L (98-107) 07/16/25 07:59 Carbon Dioxide 35 mmol/L (22-29) H 07/16/25 07:59 Anion Gap 9.7 (5-19) 07/16/25 07:59 BUN 19 mg/dL (8-23) 07/16/25 07:59 Creatinine 1.1 mg/dL (0.5-0.9) H 07/16/25 07:59 GFR Calculation Not Reportable 07/16/25 07:59 Glucose 125 mg/dL (65-115) H 07/16/25 07:59 Calculated Osmolality 296 mOsm/kg (285-295) H 07/16/25 07:59 Calcium 8.9 mg/dL (8.5-10.5) 07/16/25 07:59 Phosphorus 3.0 mg/dL (2.5-4.5) 07/14/25 13:44 Magnesium 2.2 mg/dL (1.7-2.3) 07/16/25 07:59 Total Bilirubin 0.3 mg/dL (0.15-1.2) 07/16/25 07:59 AST 13 U/L (0-32) 07/16/25 07:59 ALT 9 U/L (0-33) 07/16/25 07:59 Alkaline Phosphatase 68 U/L (35-105) 07/16/25 07:59 Total Protein 6.6 g/dL (6.6-8.7) 07/16/25 07:59 Albumin 4.0 g/dL (3.5-5.2) 07/16/25 07:59 Globulin 2.6 g/dL (1.3-4.6) 07/16/25 07:59 TSH 1.17 uIU/mL (0.27-4.20) 07/14/25 13:44 Adenovirus (PCR) Not detected (NOT DETECT) 07/14/25: C. pneumoniae DNA (PCR) Not detected (NOT DETECT) 07/14/25 21: Coronavirus 229E (PCR) Not detected (NOT DETECT) 07/14/25 21: Human Metapneumovir PCR Not detected (NOT DETECT) 07/14/25: Influenza A (H1) PCR Not detected (NOT DETECT) 07/14/25: Influ A (H1/09) PCR Not detected (NOT DETECT) 07/14/25: Influenza A (H3) PCR Not detected (NOT DETECT) 07/14/25: Influenza Type A (PCR) Not detected (NOT DETECT) 07/14/25: Influenza Type B (PCR) Not detected (NOT DETECT) 07/14/25: M. pneumoniae (PCR) Not detected (NOT DETECT) 07/14/25: Parainfluenza 1 (PCR) Not detected (NOT DETECT) 07/14/25: Parainfluenza 2 (PCR) Not detected (NOT DETECT) 07/14/25: Parainfluenza 3 (PCR) Not detected (NOT DETECT) 07/14/25: Parainfluenza 4 (PCR) Not detected (NOT DETECT) 07/14/25:25 RSV Type A (PCR) Not detected (NOT DETECT) 07/14/25 21:25 RSV Type B (PCR) Not detected (NOT DETECT) 07/14/25 21:25 Entero/Rhino (PCR) Not detected (NOT DETECT) 07/14/25 21:25 SARS-CoV-2 (PCR) Not detected (NOT DETECT) 07/14/25 21:25 Vitals Last Vital Signs Temp 97.7 F 07/16/25 07:33 Pulse 80 07/16/25 07:49 Resp 20 H 07/16/25 07:49 BP 118/79 07/16/25 07:33 Pulse Ox 96 07/16/25 07:49 O2 Del Method Nasal Cannula 07/16/25 07:49 O2 Flow Rate 2.5 07/16/25 07:49 Discharge Plan Discharge Patient Disposition: Home Health Service Condition: Stable Prescriptions: New sennosides [senna] 8.6 mg Tablet 17.2 mg PO BEDTIME PRN (Reason: constipation) 7 Days Qty: 7 0RF prednisone 20 mg Tablet 40 mg PO DAILY 5 Days Qty: 5 0RF doxycycline hyclate 100 mg capsule 100 mg PO BID 5 Days Qty: 10 0RF hydrocodone-acetaminophen 5-325 mg tablet 1 tab PO Q6H PRN (Reason: pain) Qty: 12 0RF Continued (DME) hospital bed See Rx Instructions .Route .MEDSUPPLY Qty: 1 0RF Rx Instructions: elevated HOB to at least 30 degrees when sleeping (DME) XL rollator walker with seat See Rx Instructions .Route .MEDSUPPLY Qty: 1 0RF Rx Instructions: ALBERTINA 99 (DME) nebulizer machine with tubing and delivery device See Rx Instructions .Route .MEDSUPPLY Qty: 1 0RF Rx Instructions: As directed clobetasol 0.05 % ointment 1 applic topical BID 14 Days Qty: 60 0RF Rx Instructions: Use for no more than 2 weeks per month. Apply to legs.Not for use on face/s kin folds. pantoprazole [Protonix] 40 mg tablet,delayed release (DR/EC) 40 mg PO DAILY Qty: 30 5RF polyethylene glycol 3350 [Miralax] 17 gram/dose powder 17 g PO DAILY PRN (Reason: constipation) Qty: 510 1RF tizanidine 4 mg tablet 4 mg PO Q8H PRN (Reason: muscle spasticity) Qty: 30 0RF nitroglycerin 0.4 mg tablet, sublingual See Rx Instructions .ROUTE .COMPLEX Qty: 25 11RF Dose Instruction: DISSOLVE 1 TABLET UNDER THE TONGUE NEEDED FOR CHEST PAIN EVERY 5 MINUTES UP TO 3 TIMES. IF NO RELIEF CALL 911. Rx Instructions: DISSOLVE 1 TABLET UNDER THE TONGUE NEEDED FOR CHEST PAIN EVERY 5 MINUTES UP TO 3 TIMES. IF NO RELIEF CALL 911. albuterol sulfate 2.5 mg /3 mL (0.083 %) solution for nebulization 2.5 mg continuous nebulization Q6H PRN (Reason: Shortness Of Breath) atorvastatin 10 mg tablet 10 mg PO DAILY isosorbide mononitrate 30 mg tablet extended release 24 hr 30 mg PO .@90AM metoprolol succinate 100 mg tablet extended release 24 hr 100 mg PO DAILY aspirin 81 mg tablet,delayed release (DR/EC) 81 mg PO DAILY meloxicam 7.5 mg tablet 7.5 mg PO .@9AM ferrous sulfate [FeroSul] 325 mg (65 mg iron) tablet 325 mg PO BID montelukast 10 mg tablet 10 mg PO .@9AM hydrochlorothiazide 25 mg tablet 25 mg PO DAILY furosemide 20 mg tablet 10 mg PO BID gabapentin 100 mg capsule 200 mg PO BID ergocalciferol (vitamin D2) 1,250 mcg (50,000 unit) capsule 50,000 unit PO Q7D Rx Instructions: THURSDAY albuterol sulfate 90 mcg/actuation HFA aerosol inhaler 2 puff inhalation Q4H PRN (Reason: Shortness Of Breath) losartan 100 mg tablet 100 mg PO DAILY loratadine 10 mg tablet 10 mg PO DAILY sodium chloride 0.65 % aerosol,spray 1 spray intranasal BID PRN (Reason: dry nose) duloxetine 30 mg capsule,delayed release(DR/EC) 30 mg PO DAILY calcium carbonate-vitamin D3 [Oyster Shell Calcium-Vit D3] 500 mg-5 mcg (200 unit) tablet 1 tab PO DAILY roflumilast 500 mcg tablet 500 mcg PO .@9AM Trelegy Ellipta 100-62.5-25 mcg blister with device 1 inh inhalation DAILY Discharge Order = DC NOW: Discharge Order (Routine); Ordered 07/16/25 Ordered By: Tiera Hollingsworth Other Ambulatory Orders: DME: [employer] (Order) Location: None Selected Ordered By: Tiera Hollingsworth Referrals: [facility] [Provider Group, Pain Management] - 4-7 days Referral Note: We have notified your physician's clinic of the need for a follow-up appointment to be scheduled. If you have not heard from them within the next 2 business days, please call them directly. Eamon Rollins DO [Physician, Orthopedics] - 2 weeks Referral Note: We have notified your physician's clinic of the need for a follow-up appointment to be scheduled. If you have not heard from them within the next 2 business days, please call them directly. Trish Linares FNP [Primary Care Provider, Family Practice] - 1-3 days Referral Note: We have notified your physician's clinic of the need for a follow-up appointment to be scheduled. If you have not heard from them within the next 2 business days, please call them directly. Discharge Diet: Usual diet Discharge Activity: Resume usual activity Patient Instructions: Doxycycline (By mouth), Hydrocodone/Acetaminophen (By m outh), Prednisone (By mouth), Opioid Safety, Patient Portal & Seth Instructions Discharge Attestations Time Spent in Discharge Care*: greater than 30 min Status at Discharge: Cognitive status at discharge: cognitively intact , Behavioral status at discharge: cooperative , Quality Metrics Clinical Quality Measures [ No reported AMI, CVA or VTE this stay] Coding Level of Care Code 46127 Diagnoses Compression fracture of L3 vertebra, initial encounter S32.030A Encounter type: initial encounter Lumbar vertebra fracture level: L3 Lumbosacral spondylosis without myelopathy M47.817 Severe muscle deconditioning R29.898 Centrilobular emphysema J43.2 COPD type: emphysema Emphysema type: centrilobular Active asthma J45.909 Restrictive lung disease secondary to obesity J98.4; E66.9 Mixed hyperlipidemia E78.2 Coronary artery disease involving [place] coronary artery of [place] heart without angina pectoris I25.10 Associated angina: without angina [place] vs. transplanted heart: [place] heart Essential (primary) hypertension I10 FITO (acute kidney injury) N17.9
== END 2025-07-16 10:55 | disposition home health service (06) ==
LOC: ER 10:49 → MEDSURG 19:35
PROVIDERS: Admitting Provider Student in an Organized Health Care Education/Training Program; Emergency Provider Family Medicine; Family Provider Nurse Practitioner Family; PCP Nurse Practitioner Family; Visit Provider Registered Nurse
DX: S32.030A Wedge compression fracture of third lumbar vertebra, initial encounter for closed fracture (principal); X58.XXXA Exposure to other specified factors, initial encounter; M47.817 Spondylosis without myelopathy or radiculopathy, lumbosacral region; R29.898 Other symptoms and signs involving the musculoskeletal system; J98.4 Other disorders of lung; E66.9 Obesity, unspecified; E78.2 Mixed hyperlipidemia; I25.10 Atherosclerotic heart disease of native coronary artery without angina pectoris; I10 Essential (primary) hypertension; N17.9 Acute kidney failure, unspecified; Z79.82 Long term (current) use of aspirin; K21.9 Gastro-esophageal reflux disease without esophagitis; Z79.891 Long term (current) use of opiate analgesic; G47.33 Obstructive sleep apnea (adult) (pediatric); J44.9 Chronic obstructive pulmonary disease, unspecified; Z87.891 Personal history of nicotine dependence
CPT/HCPCS: 36415; 51702; 72131; 80053; 83735; 84100; 84443; 85025; 87070; 87205; 87486; 87581; 87633; 94640; 94664; 96372; 96374; 96375; 97162; 97166; 97530; 99285; G0378; J1644; J1885; J2270; J2470; J2919; J7030; J7120; J7512; J7613; J9999

== ENCOUNTER → 2025-08-01 13:04 | Outpatient (BNVA) | payer MEDICARE, MEDICAID, SELFPAY | PROVIDERS: Family Provider Nurse Practitioner Family; PCP Nurse Practitioner Family; Visit Provider Orthopaedic Surgery | DX: S32.030A Wedge compression fracture of third lumbar vertebra, initial encounter for closed fracture (principal); X58.XXXA Exposure to other specified factors, initial encounter; Z51.89 Encounter for other specified aftercare | CPT/HCPCS: 72100; 99213 ==

== ENCOUNTER 2025-08-07 16:00 | Outpatient (CLI) | payer MEDICARE, MEDICAID, SELFPAY ==
--- NOTE | 2025-08-07 16:00 | MRR_ITS ---
PROCEDURE INFORMATION: Exam: MR Lumbar Spine Without Contrast Exam date and time: 08/07/2025 4:25 PM Age: 70 years old Clinical indication: Low back pain; Lbp that radiates down the right leg for 1 month/no injury TECHNIQUE: Imaging protocol: Magnetic resonance imaging of the lumbar spine without contrast. COMPARISON: CT lumbar spine wo con* [id number] 07/14/2025 10:56 AM FINDINGS: Bones/joints: Acute compression fracture of the inferior endplate of L3 with mild compression deformity and bone marrow edema. Hemangiomas in the T11 vertebral body. Chronic moderate compression deformity of the T12 vertebral body. There is no evidence of spondylolisthesis. Spinal cord: Visualized cord, conus medullaris and cauda equina are unremarkable without compression. There is linear fat signal along the filum terminale consistent with fatty filum terminale. L1-L2: Posterior disc bulge with bilateral ligamentum flavum hypertrophy causing minimal thecal sac compression but no significant neural foraminal stenosis. L2-L3: Posterior disc bulge with bilateral ligamentum flavum hypertrophy and facet joint arthropathy causing mild thecal sac compression and mild narrowing of both neural foramina. L3-L4: Posterior disc bulge with bilateral ligamentum flavum hypertrophy and facet joint arthropathy causing severe narrowing of the neural foramina and severe thecal sac compression. L4-L5: Posterior disc bulge with bilateral ligamentum flavum hypertrophy and facet joint arthropathy causing moderate thecal sac compression and mild narrowing of both neural foramina. L5-S1: Bilateral facet joint arthropathy causing mild neural foraminal narrowing. No significant thecal sac compression. Soft tissues: There is fatty atrophy of the erector spinae muscles. Kidneys and ureters: There are multiple simple renal cysts. MR/MR lumbar spine wo con* [id number] IMPRESSION: 1. Acute mild compression fracture of the L3 vertebral body with no epidural hematoma or significant retropulsion. 2. Degenerative disease of the lumbar spine with severe thecal sac compression at L3-L4 level.
== END 2025-08-07 16:01 | disposition home or self-care (01) ==
LOC: RAD 16:01
PROVIDERS: PCP Nurse Practitioner Family; Visit Provider Orthopaedic Surgery
DX: S32.030A Wedge compression fracture of third lumbar vertebra, initial encounter for closed fracture (principal); X58.XXXA Exposure to other specified factors, initial encounter; M51.362 Other intervertebral disc degeneration, lumbar region with discogenic back pain and lower extremity pain; M48.061 Spinal stenosis, lumbar region without neurogenic claudication; M48.07 Spinal stenosis, lumbosacral region; M47.816 Spondylosis without myelopathy or radiculopathy, lumbar region; M47.817 Spondylosis without myelopathy or radiculopathy, lumbosacral region
CPT/HCPCS: 72148

== ENCOUNTER → 2025-08-22 13:20 | Outpatient (BNVA) | payer MEDICARE, MEDICAID, SELFPAY | PROVIDERS: PCP Nurse Practitioner Family; Visit Provider Orthopaedic Surgery | DX: S32.030A Wedge compression fracture of third lumbar vertebra, initial encounter for closed fracture (principal); M48.061 Spinal stenosis, lumbar region without neurogenic claudication; X58.XXXA Exposure to other specified factors, initial encounter | CPT/HCPCS: 99214 ==